=== PATIENT | female | born 1990 | race Caucasian/White ===

== ENCOUNTER 2022-04-24 17:57 | Emergency (ER) | payer OTHER, MEDICAID, SELFPAY ==
[2022-04-24] VITALS (12 sets, daily range): BP systolic 146–169; BP diastolic 87–102; PULSE 73–87; RESP 20–30; TEMP 35.6; O2SAT 97–100; BMI 28.7
[2022-04-24 20:31] LABS: Alanine Aminotransferase 63 IU/L (<35); Albumin 4.6 g/dL (3.5-5.0); Albumin Globulin Ratio 1.2 (1.0-2.8); Alkaline Phosphatase 175 U/L (38-126); Aspartate Aminotransferase 410 IU/L (14-36); BUN Creatinine Ratio 10.5 (6-22); Bilirubin Total 2.8 mg/dL (0.2-1.3); Blood Urea Nitrogen 4 mg/dL (7-17); Calcium 8.7 mg/dL (8.4-10.2); Carbon Dioxide 25 mmol/L (22-32); Chloride 100 mmol/L (98-107); Estimated Glomerular Filt Rate > 60 mL/min (>60); Ethanol (ETOH) < 10 mg/dL; Globulin 3.9 g/dL (1.7-4.1); Glucose 137 mg/dL (70-100); HEMOLYSIS < 15 (0-50); Lipase 206 U/L (23-300); Potassium 3.3 mmol/L (3.4-5.1); Sodium 140 mmol/L (137-145); Total Protein 8.5 g/dL (6.3-8.2)
[2022-04-24 20:33] LABS: Add Manual Diff / Slide Review SLIDE REVIEW; Basophils Absolute Auto 0 /uL (0-100); Basophils Percent Auto 1.1 % (0-2); Eosinophils Absolute Auto 0 /uL (0-450); Eosinophils Percent Auto 0.5 % (2-4); Hematocrit 37.2 % (36-46); Hemoglobin 12.1 g/dL (12.0-16.0); Lymphocytes Absolute Auto 500 /uL (1100-4500); Lymphocytes Percent Auto 17.3 % (25-40); Mean Corpuscular HGB Conc 32.4 % (30-36); Mean Corpuscular Volume 86.2 fL (80-100); Monocytes Absolute Auto 200 /uL (0-900); Monocytes Percent Auto 7.7 % (3-14); Neutrophils Absolute Auto 2200 /uL (1500-7000); Neutrophils Percent Auto 73.4 % (50-75); Platelet Count 40 X10^3/uL (150-400); Red Blood Cell Count 4.31 X10^6/uL (4.0-5.2); Red Cell Distribution Width 16.9 % (11.6-14.8); White Blood Cell Count 2.9 X10^3/uL (4.5-11.0)
[2022-04-24] MEDS: ONDANSETRON 4 MG/2 ML INJ IV (20:43)
[2022-04-24] MEDS: SODIUM CHLORIDE 0.9% 1,000 ML 1000 ML IV (20:43)
[2022-04-24 21:36] LABS: RBC Morphology Normal Morphology
[2022-04-24 21:37] LABS: Platelet Estimate Decreased on smear
--- NOTE | 2022-04-24 23:15 | PC.NURSE ---
patient customer support consultant light concerns of her blood pressure being elevated. MD and primary RN notified of patients concern.
[2022-04-25] VITALS: BP 166/96; PULSE 73; O2SAT 98
--- NOTE | 2022-04-25 00:41 | ED.ALCOHOL ---
HPI - Alcohol <Jewell Hightower DO - Last Filed: 04/25/22 17:59> General Chief Complaint: Toxicology Problem Stated Complaint: severe alcoholic, dt's Time Seen by Provider: 04/24/22 19:35 Source: patient Mode of arrival: Ambulatory History of Present Illness HPI narrative: Patient is a 31-year-old female who presents with alcohol detox. She states she drinks 10 shots every day she has for number of years. She was sober for 51 days this past summer. The last 5 days she developed an illness with fever chills body aches nausea vomiting. She feels like that has actually gotten a little bit better but she really has been able to keep much down however she has been able to keep down some alcohol she has not had an alcoholic drink in the last 24 hours he feels a little shaky. She has not previously have seizures. When she was sober for 51 days she went to a detox center. She denies any cough all chest pain palpitations or sore throat. She feels like her abdomen is a little bit bloated but no significant pain. Related Data Home Medications Medication Instructions Recorded Confirmed No Known Home Medications 11/19/20 11/19/20 Allergies Allergy/AdvReac Type Severity Reaction Status Date / Time aspirin Allergy Verified 04/24/22 18:11 Review of Systems <Jewell Hightower DO - Last Filed: 04/25/22 17:59> Review of Systems Narrative: GENERAL: Denies chills, fatigue, malaise, fever, sweats, travel HEENT: Denies sinus pain, ear pain, sore throat, difficulty swallowing, neck pain RESPIRATORY: Denies dyspnea, cough, wheezing, hemoptysis, sputum. CARDIOVASCULAR: Denies chest pain, palpitations, orthopnea, edema GASTROINTESTINAL: See HPI : Denies dysuria, frequency, incontinence, hematuria, urinary retention, flank pain. MUSCULOSKELETAL: Denies weakness, joint pain, or bony pain SKIN: No rash, no erythema, no pruritus NEUROLOGIC: Denies weakness, dizziness, headache, numbness, change in speech, confusion PSYCHIATRIC: See HPI 12 point review of systems is negative except for those stated above and HPI Patient History <Jewell Hightower DO - Last Filed: 04/25/22 17:59> Social History Smoking Status: Current some day smoker Smoking Status: Current some day smoker alcohol intake frequency: 3 or more drinks per day Alcohol type: hard liquor Substance Use Type: does not use Exam <Jewell Hightower DO - Last Filed: 04/25/22 17:59> Initial Vital Signs Initial Vital Signs: Vital Signs Temperature 96.0 F L 04/24/22 18:06 Pulse Rate 87 04/24/22 18:06 Respiratory Rate 22 04/24/22 18:06 Blood Pressure 148/94 H 04/24/22 18:06 Pulse Oximetry 98 04/24/22 18:06 Oxygen Delivery Method 04/24/22 18:06 GENERAL: Alert sleeping 31-year-old female easily arousable and in no acute distress. HEENT: Head atraumatic,EOMI, pupils reactive, face symmetric, moist mucous membranes CARDIOVASCULAR: Regular rate and rhythm without murmurs, rubs or gallops. RESPIRATORY: Breath sounds equal bilaterally, no wheezes rales or rhonchi. ABDOMEN: Soft, no right upper quadrant pain no guarding no rebound no epigastric EXTREMITIES: Normal range of motion, no clubbing or edema. Neurovascularly intact NEUROLOGICAL: Alert and oriented x4.Normal gait and speech. SKIN: Warm, dry, no laceration, no petechiae, no rashes or lesions. <Abad Jackson MD - Last Filed: 04/25/22 09:09> Initial Vital Signs Initial Vital Signs: Vital Signs Temperature 96.0 F L 04/24/22 18:06 Pulse Rate 87 04/24/22 18:06 Respiratory Rate 22 04/24/22 18:06 Blood Pressure 148/94 H 04/24/22 18:06 Pulse Oximetry 98 04/24/22 18:06 Oxygen Delivery Method 04/24/22 18:06 Course <Jewell Hightower DO - Last Filed: 04/25/22 17:59> Orders Ordered: Discontinued Medications Sodium Chloride (Normal Saline 0.9%) 1,000 mls @ 1,000 mls/hr IV BOLUS ONE Stop: 04/24/22 21:38 Last Infusion: 04/25/22 01:10 Dose: 0 mls/hr Documented By: Admin: 04/24/22 20:43 Dose: 1,000 mls/hr Documented By: GABRIEL Lorazepam (Lorazepam 2 Mg/Ml Inj) 1 mg IV NOW ONE Stop: 04/25/22 04:34 Last Admin: 04/25/22 04:41 Dose: 1 mg Documented By: RON Ondansetron HCl (Ondansetron 4 Mg/2 Ml Inj) 4 mg IV NOW ONE Stop: 04/24/22 20:40 Last Admin: 04/24/22 20:43 Dose: 4 mg Documented By: GABRIEL Phenobarbital (Phenobarbital 65 Mg/Ml Vial) 130 mg IV NOW ONE Stop: 04/25/22 00:56 Last Admin: 04/25/22 01:10 Dose: 130 mg Documented By: RON Vital Signs Vital signs: Vital Signs - 8 hr 04/25/22 03:24 Pulse Rate 76 Respiratory Rate 16 Blood Pressure 128/64 Pulse Oximetry 98 Oxygen Delivery Method Room Air <Abad Jackson MD - Last Filed: 04/25/22 09:09> Course Course Narrative: Care was assumed from Dr. Hightower at change of shift. Patient is a heavy drinker, she is been sober for about 48 hours. She desires sobriety. She is also had recent fever and flu-like symptoms. She currently has no headache, sore throat, cough or chest discomfort. She is no tremor. She is no nausea vomiting. She does have abdominal discomfort. She is experiencing myalgia and fatigue. LFTs were elevated, notably an increased total bili. Ultrasound revealed cholelithiasis, no cholecystitis. Liver MRI was done. Nodular changes to the liver noted. Cholelithiasis noted. There is no abnormality to the CBD, no stones in the CBD. On my exam, she is alert and oriented. Jaundice is not evident. She has no tremor. Abdominal exam reveals no significant tenderness, hepatomegaly is obvious. Further detox was discussed with the patient. Her mother has flown up from [place] to spend time with her. Her mother is here to assist her with sobriety. Admission for detox is declined. She is advised to have close follow-up with her PCM to recheck her liver tests. Melchor WAGONER 04/25/22@09:04. Orders Ordered: Discontinued Medications Sodium Chloride (Normal Saline 0.9%) 1,000 mls @ 1,000 mls/hr IV BOLUS ONE Stop: 04/24/22 21:38 Last Infusion: 04/25/22 01:10 Dose: 0 mls/hr Documented By: Admin: 04/24/22 20:43 Dose: 1,000 mls/hr Documented By: GABRIEL Lorazepam (Lorazepam 2 Mg/Ml Inj) 1 mg IV NOW ONE Stop: 04/25/22 04:34 Last Admin: 04/25/22 04:41 Dose: 1 mg Documented By: RON Ondansetron HCl (Ondansetron 4 Mg/2 Ml Inj) 4 mg IV NOW ONE Stop: 04/24/22 20:40 Last Admin: 04/24/22 20:43 Dose: 4 mg Documented By: GABRIEL Phenobarbital (Phenobarbital 65 Mg/Ml Vial) 130 mg IV NOW ONE Stop: 04/25/22 00:56 Last Admin: 04/25/22 01:10 Dose: 130 mg Documented By: RON Vital Signs Vital signs: Vital Signs - 8 hr 04/25/22 03:24 Pulse Rate 76 Respiratory Rate 16 Blood Pressure 128/64 Pulse Oximetry 98 Oxygen Delivery Method Room Air MDM - Alcohol <Jewell Hightower DO - Last Filed: 04/25/22 17:59> Lab Data Result diagrams: 04/24/22 18:17 04/25/22 03:25 Labs: Lab Results 04/24/22 04/24/22 04/25/22 Range/Units 18:17 18:17 03:25 WBC 2.9 L (4.5-11.0) X10^3/uL RBC 4.31 (4.0-5.2) X10^6/uL Hgb 12.1 (12.0-16.0) g/dL Hct 37.2 (36-46) % MCV 86.2 (80-100) fL MCH 28.0 (26-34) PG MCHC 32.4 (30-36) % RDW 16.9 H (11.6-14.8) % Plt Count 40 L (150-400) X10^3/uL Neut % (Auto) 73.4 (50-75) % Lymph % (Auto) 17.3 L (25-40) % Pitkin % (Auto) 7.7 (3-14) % Eos % (Auto) 0.5 L (2-4) % Baso % (Auto) 1.1 (0-2) % Neut # (Auto) 2200 (5220-3957) /uL Lymph # (Auto) 500 L (5707-9008) /uL Pitkin # (Auto) 200 (0-900) /uL Eos # (Auto) 0 (0-450) /uL Baso # (Auto) 0 (0-100) /uL Platelet Estimate Decreased on smear RBC Morphology Normal morphology Sodium 140 138 (137-145) mmol/L Potassium 3.3 L 3.2 L (3.4-5.1) mmol/L Chloride 100 103 (98-107) mmol/L Carbon Dioxide 25 26 (22-32) mmol/L BUN 4 L 3 L (7-17) mg/dL Creatinine 0.38 L 0.36 L (0.52-1.04) mg/dL Estimated GFR > 60 > 60 (>60) mL/min BUN/Creatinine Ratio 10.5 8.3 (6-22) Glucose 137 H 118 H (70-100) mg/dL Calcium 8.7 7.9 L (8.4-10.2) mg/dL Total Bilirubin 2.8 H 3.3 H (0.2-1.3) mg/dL AST 410 H 306 H (14-36) IU/L ALT 63 H 54 H (<35) IU/L Alkaline Phosphatase 175 H 127 H (38-126) U/L Total Protein 8.5 H 7.4 (6.3-8.2) g/dL Albumin 4.6 4.0 (3.5-5.0) g/dL Globulin 3.9 3.4 (1.7-4.1) g/dL Albumin/Globulin Ratio 1.2 1.2 (1.0-2.8) Lipase 206 (23-300) U/L Ethyl Alcohol < 10 ( - 10) mg/dL Imaging Data US - abdomen: Radiologist's Impressoin: Signed Patient: Kaitlin Chase MR#: [id number] : 1990 Acct:[id number] Age/Sex: 31 / F Date of Service: 04/25/22 Loc: ED Accession Number: [id number] ?? Procedure: US abdomen limited Ordering Provider: Jewell Hightower D.O. PROCEDURE: US ABDOMEN LIMITED ? INDICATIONS:? RUQ PAIN ? TECHNIQUE:? Real-time focused scanning was performed of the abdomen, with image documentation.? ? COMPARISON:? [facility], US, US ABDOMEN COMPLETE, 10/26/2021, 12:58. ? FINDINGS:? ? The liver is enlarged, measuring up to approximately 26 cm.? There is markedly increased hepatic echogenicity with coarse sonographic echotexture consistent with fatty infiltration. ? Multiple mobile gallstones are demonstrated within the gallbladder.? No associated gallbladder wall thickening or pericholecystic fluid. ? No intra or extrahepatic biliary ductal dilatation. ? Pancreas was not well seen due to bowel gas. ? IMPRESSION:? ? 1. Hepatomegaly with increased echogenicity and coarse sonographic echotexture consistent with steatosis. ? 2. Cholelithiasis without evidence of cholecystitis.? Dictated by: Regis Chamorro M.D. on 04/25/2022 at 2:19 ? ? Approved by: Regis Chamorro M.D. on 04/25/2022 at 2:21 ? MDM Narrative Medical decision making narrative: Patient does have history of alcoholism. However her started with nausea vomiting and some diarrhea. She is found have elevated bilirubin at 2.8 and liver enzymes. She does have some very minimal right upper quadrant pain. Ultrasound does show multiple gallstones without cholecystitis. Common bile duct is within normal limits. However repeat blood work shows an increase in bilirubin she really does not have any more pain. Will get MRCP to confirm. She is given a dose of phenobarbital in the emergency department which seems to help but she is wanting more. Patient signed out to Dr. Jackson follow-up MRCP <Abad Jackson MD - Last Filed: 04/25/22 09:09> Lab Data Labs: Lab Results 04/24/22 04/24/22 04/25/22 Range/Units 18:17 18:17 03:25 WBC 2.9 L (4.5-11.0) X10^3/uL RBC 4.31 (4.0-5.2) X10^6/uL Hgb 12.1 (12.0-16.0) g/dL Hct 37.2 (36-46) % MCV 86.2 (80-100) fL MCH 28.0 (26-34) PG MCHC 32.4 (30-36) % RDW 16.9 H (11.6-14.8) % Plt Count 40 L (150-400) X10^3/uL Neut % (Auto) 73.4 (50-75) % Lymph % (Auto) 17.3 L (25-40) % Pitkin % (Auto) 7.7 (3-14) % Eos % (Auto) 0.5 L (2-4) % Baso % (Auto) 1.1 (0-2) % Neut # (Auto) 2200 (3812-3792) /uL Lymph # (Auto) 500 L (4599-3099) /uL Pitkin # (Auto) 200 (0-900) /uL Eos # (Auto) 0 (0-450) /uL Baso # (Auto) 0 (0-100) /uL Platelet Estimate Decreased on smear RBC Morphology Normal morphology Sodium 140 138 (137-145) mmol/L Potassium 3.3 L 3.2 L (3.4-5.1) mmol/L Chloride 100 103 (98-107) mmol/L Carbon Dioxide 25 26 (22-32) mmol/L BUN 4 L 3 L (7-17) mg/dL Creatinine 0.38 L 0.36 L (0.52-1.04) mg/dL Estimated GFR > 60 > 60 (>60) mL/min BUN/Creatinine Ratio 10.5 8.3 (6-22) Glucose 137 H 118 H (70-100) mg/dL Calcium 8.7 7.9 L (8.4-10.2) mg/dL Total Bilirubin 2.8 H 3.3 H (0.2-1.3) mg/dL AST 410 H 306 H (14-36) IU/L ALT 63 H 54 H (<35) IU/L Alkaline Phosphatase 175 H 127 H (38-126) U/L Total Protein 8.5 H 7.4 (6.3-8.2) g/dL Albumin 4.6 4.0 (3.5-5.0) g/dL Globulin 3.9 3.4 (1.7-4.1) g/dL Albumin/Globulin Ratio 1.2 1.2 (1.0-2.8) Lipase 206 (23-300) U/L Ethyl Alcohol < 10 ( - 10) mg/dL Imaging Data Abdomen MRI: Radiologist's Impressoin: In this reported clinical context, imaging findings are suggestive of steatohepatitis with areas of nodular focal fat.? Cholelithiasis was better evaluated on prior ultrasound.? No biliary ductal dilation.? Splenomegaly.? The main portal vein is patent. Discharge Plan Departure Patient Disposition: Home Clinical Impression: Alcoholism, Alcoholic liver disease Instructions: DI for Substance Use Disorder Activity Restrictions/Additional Instructions: I strongly suggest you seek help with alcohol detox and sobriety. You have no dietary restrictions. Your evaluation reveals alcoholic liver damage. You should maintain all efforts to avoid alcohol use. I suggest you follow up your doctor soon as possible to recheck your liver tests. Return to the ER as needed. Prescriptions: No Action No Known Home Medications Referrals: Silvia Kent DNP, PIPE [employer]URE SUPERVISOR [Primary Care Provider] - Visit Report Forms: Patient Portal/API
--- NOTE | 2022-04-25 00:55 | DI.US.S_ITS ---
PROCEDURE: US ABDOMEN LIMITED INDICATIONS: RUQ PAIN TECHNIQUE: Real-time focused scanning was performed of the abdomen, with image documentation. COMPARISON: [facility], US, US ABDOMEN COMPLETE, 10/26/2021, 12:58. FINDINGS: The liver is enlarged, measuring up to approximately 26 cm. There is markedly increased hepatic echogenicity with coarse sonographic echotexture consistent with fatty infiltration. Multiple mobile gallstones are demonstrated within the gallbladder. No associated gallbladder wall thickening or pericholecystic fluid. No intra or extrahepatic biliary ductal dilatation. Pancreas was not well seen due to bowel gas. IMPRESSION: 1. Hepatomegaly with increased echogenicity and coarse sonographic echotexture consistent with steatosis. 2. Cholelithiasis without evidence of cholecystitis. Dictated by: Regis Chamorro M.D. on 04/25/2022 at 2:19 Approved by: Regis Chamorro M.D. on 04/25/2022 at 2:21
[2022-04-25] MEDS: PHENobarbital 65 MG/ML VIAL 130 MG IV (01:10)
[2022-04-25 03:24] VITALS: BP 128/64; PULSE 76; RESP 16; O2SAT 98
[2022-04-25 03:45] LABS: Alanine Aminotransferase 54 IU/L (<35); Albumin Globulin Ratio 1.2 (1.0-2.8); Alkaline Phosphatase 127 U/L (38-126); Aspartate Aminotransferase 306 IU/L (14-36); BUN Creatinine Ratio 8.3 (6-22); Bilirubin Total 3.3 mg/dL (0.2-1.3); Blood Urea Nitrogen 3 mg/dL (7-17); Calcium 7.9 mg/dL (8.4-10.2); Carbon Dioxide 26 mmol/L (22-32); Chloride 103 mmol/L (98-107); Estimated Glomerular Filt Rate > 60 mL/min (>60); Globulin 3.4 g/dL (1.7-4.1); Glucose 118 mg/dL (70-100); HEMOLYSIS 25 (0-50); Potassium 3.2 mmol/L (3.4-5.1); Sodium 138 mmol/L (137-145); Total Protein 7.4 g/dL (6.3-8.2)
--- NOTE | 2022-04-25 04:33 | DI.MRI.S_ITS ---
PROCEDURE: MR ABDOMEN WO/W CON INDICATIONS: elevated bili and cholelithiasis and alcohol TECHNIQUE: Coronal HASTE, axial 2D FLASH in- and [id number]; axial breath-hold T2 FSE. Dynamic axial VIBE during the administration of contrast; post-contrast coronal VIBE or 2D FLASH with fat saturation from the hepatic dome to the iliac crests. Optional diffusion weighted imaging and ADC may be performed. COMPARISON: [facility], , US ABDOMEN LIMITED, 04/25/2022, 1:18. FINDINGS: Image quality: Motion degraded Lung bases: No basal effusions. Lungs are not well evaluated on MRI. Solid organs: Hepatic steatosis. Hepatomegaly. There is suspected more focal fat adjacent gallbladder fossa. There are also small nodular areas of suspected focal fat. Cholelithiasis was better evaluated with ultrasound. No choledocholithiasis identified. No pancreatic ductal dilation. The pancreas is within normal limits. Splenomegaly at about 15 centimeters. No adrenal nodules. No hydronephrosis. Nodes and vessels: No abdominal aortic aneurysm. Prominent upper abdominal lymph nodes may be reactive in this clinical context. The main portal vein is patent. Bowel and peritoneum: No bowel obstruction. No pathologic ascites. Bones and soft tissues: No suspicious osseous lesion. No soft tissue abscess or hematoma identified. IMPRESSION: In this reported clinical context, imaging findings are suggestive of steatohepatitis with areas of nodular focal fat. Cholelithiasis was better evaluated on prior ultrasound. No biliary ductal dilation. Splenomegaly. The main portal vein is patent. This MRI is motion degraded. Dictated by: aDmir Phillips M.D. on 04/25/2022 at 8:24 Approved by: Damir Phillips M.D. on 04/25/2022 at 8:31
[2022-04-25] MEDS: LORazepam 2 MG/ML INJ 1 MG IV (04:41)
== END 2022-04-25 09:22 | disposition home or self-care (01) ==
PROVIDERS: Emergency Provider Emergency Medicine; PCP Nurse Practitioner Family
DX: K70.9 Alcoholic liver disease, unspecified (principal); F10.20 Alcohol dependence, uncomplicated; R10.11 Right upper quadrant pain; R11.2 Nausea with vomiting, unspecified
CPT/HCPCS: 36415; 74183; 76705; 80053; 80320; 83690; 85025; 96361; 96374; 96375; 99284; J2060; J2405; J2560

== ENCOUNTER 2022-06-08 16:41 | Inpatient (IN) | payer OTHER, MEDICAID, SELFPAY ==
[2022-06-08 16:58] VITALS: BP 132/94; PULSE 88; RESP 20; TEMP 36.3; O2SAT 96; BMI 27.2
--- NOTE | 2022-06-08 17:27 | ED_ITS ---
HPI - Alcohol <Bola Harry DO - Last Filed: 06/09/22 12:28> General Chief Complaint: Toxicology Problem Stated Complaint: Liver enzymes really high Time Seen by Provider: 06/08/22 16:47 Source: patient Mode of arrival: Ambulatory History of Present Illness HPI narrative: 31-year-old female smoker and daily drinker presents at the request of her primary care provider due to about 2 weeks of nausea, vomiting and poor appetite but also symptoms consistent with alcohol withdrawal. She drinks upwards of a bottle of vodka per day and had her last drink last night. She had seen her primary care provider today to discuss options moving forward and was prescribed a Librium taper but also had labs drawn. The labs came back and found slight elevations in her LFTs but also bilirubin of 3. She was instructed to present to us for evaluation. Over the course of the day she has developed some mild headache agitation and racing heart. She is gone through alcohol withdrawal before but has never had seizures. She denies any hematemesis or dark and tarry stools. She denies abdominal pain. Related Data Home Medications Medication Instructions Recorded Confirmed No Known Home Medications 11/19/20 11/19/20 Allergies Allergy/AdvReac Type Severity Reaction Status Date / Time aspirin Allergy Verified 06/08/22 16:58 Review of Systems <Bola Harry DO - Last Filed: 06/09/22 12:28> Review of Systems Narrative: GENERAL: See HPI HEENT: Denies sinus pain, ear pain, sore throat, difficulty swallowing, dizziness. RESPIRATORY: Denies dyspnea, cough, wheezing, hemoptysis, sputum. CARDIOVASCULAR: Denies chest pain, palpitations, orthopnea, edema, GASTROINTESTINAL: See HPI : Denies dysuria, frequency, incontinence, hematuria, urinary retention. MUSCULOSKELETAL: denies weakness, joint pain, or bony pain SKIN: Denies rash, skin lesions, or other NEUROLOGIC: See HPI PSYCHIATRIC: No concerning psychosocial issues. 12 point review of systems is negative except for those stated above Patient History <Bola Harry DO - Last Filed: 06/09/22 12:28> Medical History (Updated 06/09/22 @ 01:56 by Brooklyn Lopez DO) Alcohol abuse Thrombocythemia Surgical History (Updated 06/08/22 @ 22:07 by RICHARD Meza) No history of previous surgery Family History (Updated 06/08/22 @ 22:08 by RICHARD Meza) Father Depression Mother No pertinent past medical history Social History household members: friend(s) Smoking Status: Current some day smoker alcohol intake: current Smoking Status: Current some day smoker alcohol intake frequency: 3 or more drinks per day Alcohol type: hard liquor Substance Use Type: does not use Exam <Bola Harry DO - Last Filed: 06/09/22 12:28> Narrative Exam Narrative: GENERAL: [31] year old patient appears stated age. Well-developed patient, in obviously ill, bit anxious and agitated, tremulous at rest HEAD: Atraumatic. Normocephalic. EYES: Pupils equal round and reactive. Extraocular motions intact. No scleral icterus. No injection or drainage. ENT: Nose without bleeding, purulent drainage. Throat without erythema, tonsillar hypertrophy or exudate. Airway patent. NECK: Trachea midline. Non tender CARDIOVASCULAR: Tachycardic but regular rhythm without murmurs, gallops, or rubs. RESPIRATORY: Clear to auscultation. Breath sounds equal bilaterally. No wheezes, rales, or rhonchi. GASTROINTESTINAL: Abdomen soft, non-tender, nondistended. EXTREMITIES: No edema or joint tenderness. BACK: Nontender without deformity or crepitance. No flank tenderness. NEURO: AOx3. Some pressured speech, tremulous with arms extended SKIN: No rash or erythema of visible areas Initial Vital Signs Initial Vital Signs: Vital Signs Temperature 97.3 F L 06/08/22 16:58 Pulse Rate 88 06/08/22 16:58 Respiratory Rate 20 06/08/22 16:58 Blood Pressure 132/94 H 06/08/22 16:58 Pulse Oximetry 96 06/08/22 16:58 Oxygen Delivery Method 06/08/22 16:58 <Brooklyn Lopez DO - Last Filed: 06/09/22 02:34> Initial Vital Signs Initial Vital Signs: Vital Signs Temperature 97.3 F L 06/08/22 16:58 Pulse Rate 88 06/08/22 16:58 Respiratory Rate 20 06/08/22 16:58 Blood Pressure 132/94 H 06/08/22 16:58 Pulse Oximetry 96 06/08/22 16:58 Oxygen Delivery Method 06/08/22 16:58 Course <Bola Harry, DO - Last Filed: 06/09/22 12:28> Course Course Narrative: CIWA calculated by nursing, initial score 17 Orders Ordered: Chlordiazepoxide HCl (Chlordiazepoxide 25 Mg Capsule) 25 mg PO TID [facility] Last Admin: 06/09/22 08:49 Dose: 25 mg Documented By: SHAGGY Folic Acid (Folic Acid 1 Mg Tablet) 1 mg PO DAILY [facility] Last Admin: 06/09/22 08:48 Dose: 1 mg Documented By: SHAGGY Sodium Chloride (Normal Saline 0.9%) 1,000 mls @ 100 mls/hr IV CONT [facility] Last Admin: 06/09/22 00:02 Dose: Not Given Documented By: RON Lorazepam (Lorazepam 2 Mg/Ml Inj) 0 mg IV CIWAPRN PRN; Protocol PRN Reason: Alcohol Withdrawal Last Admin: 06/09/22 02:57 Dose: 2 mg Documented By: MARY KATE Admin: 06/09/22 01:14 Dose: 2 mg Documented By: MARY KATE Admin: 06/08/22 21:56 Dose: 2 mg Documented By: RON Magnesium Chloride (Magnesium Chloride 64 Mg Tablet) 128 mg PO Q8H [facility] Stop: 06/09/22 15:46 Last Admin: 06/09/22 08:44 Dose: 128 mg Documented By: SHAGGY Multivitamins (Multivitamin 1 Tablet) 1 tab PO DAILY [facility] Last Admin: 06/09/22 08:48 Dose: 1 tab Documented By: SHAGGY Naloxone HCl (Naloxone 0.4 Mg/Ml Vial) 0.2 mg IV Q2MIN PRN PRN Reason: Opiate Reversal Nicotine (Nicotine 7 Mg Patch) 7 mg TOP DAILY [facility] Last Admin: 06/09/22 08:57 Dose: Not Given Documented By: SHAGGY Ondansetron HCl (Ondansetron 4 Mg/2 Ml Inj) 4 mg IV Q6HR PRN PRN Reason: Nausea And Vomiting Potassium Chloride (Potassium Chloride 20 Meq Tab) 40 meq PO Q6H [facility] Stop: 06/09/22 13:46 Last Admin: 06/09/22 08:44 Dose: 40 meq Documented By: SHAGGY Thiamine HCl (Thiamine 100 Mg Tablet) 100 mg PO DAILY [facility] Stop: 06/12/22 09:01 Last Admin: 06/09/22 08:48 Dose: 100 mg Documented By: SHAGGY Discontinued Medications Chlordiazepoxide HCl (Chlordiazepoxide 25 Mg Capsule) 25 mg PO TID [facility] Last Admin: 06/08/22 21:45 Dose: 25 mg Documented By: RON Sodium Chloride (Normal Saline 0.9%) 1,000 mls @ 100 mls/hr IV CONT [facility] Last Infusion: 06/09/22 07:07 Dose: 0 mls/hr Documented By: Admin: 06/08/22 21:43 Dose: 100 mls/hr Documented By: RON Magnesium Sulfate (Magnesium Sulfate) 2 gm in 50 mls @ 25 mls/hr IV NOW ONE Stop: 06/09/22 10:15 Last Admin: 06/09/22 08:49 Dose: 25 mls/hr Documented By: SHAGGY Co-signed By: WILLIAM Ondansetron HCl (Ondansetron 4 Mg/2 Ml Inj) 4 mg IV NOW PRN PRN Reason: Nausea And Vomiting Last Admin: 06/08/22 17:54 Dose: 4 mg Documented By: YING Phenobarbital (Phenobarbital 65 Mg/Ml Vial) 260 mg IV NOW ONE Stop: 06/08/22 17:23 Last Admin: 06/08/22 17:54 Dose: 260 mg Documented By: YING Phenobarbital (Phenobarbital 65 Mg/Ml Vial) 130 mg IV NOW ONE Stop: 06/08/22 19:50 Last Admin: 06/08/22 19:52 Dose: 130 mg Documented By: RON Vital Signs Vital signs: Vital Signs - 8 hr 06/08/22 16:58 Temperature 97.3 F L Pulse Rate 88 Respiratory Rate 20 Blood Pressure 132/94 H Pulse Oximetry 96 Oxygen Delivery Method Room Air <Brooklyn Lopez, - Last Filed: 06/09/22 02:34> Orders Ordered: Chlordiazepoxide HCl (Chlordiazepoxide 25 Mg Capsule) 25 mg PO TID [facility] Last Admin: 06/09/22 08:49 Dose: 25 mg Documented By: SHAGGY Folic Acid (Folic Acid 1 Mg Tablet) 1 mg PO DAILY [facility] Last Admin: 06/09/22 08:48 Dose: 1 mg Documented By: SHAGGY Sodium Chloride (Normal Saline 0.9%) 1,000 mls @ 100 mls/hr IV CONT [facility] Last Admin: 06/09/22 00:02 Dose: Not Given Documented By: RON Lorazepam (Lorazepam 2 Mg/Ml Inj) 0 mg IV CIWAPRN PRN; Protocol PRN Reason: Alcohol Withdrawal Last Admin: 06/09/22 02:57 Dose: 2 mg Documented By: MARY KATE Admin: 06/09/22 01:14 Dose: 2 mg Documented By: MARY KATE Admin: 06/08/22 21:56 Dose: 2 mg Documented By: RON Magnesium Chloride (Magnesium Chloride 64 Mg Tablet) 128 mg PO Q8H [facility] Stop: 06/09/22 15:46 Last Admin: 06/09/22 08:44 Dose: 128 mg Documented By: SHAGYG Multivitamins (Multivitamin 1 Tablet) 1 tab PO DAILY [facility] Last Admin: 06/09/22 08:48 Dose: 1 tab Documented By: SHAGGY Naloxone HCl (Naloxone 0.4 Mg/Ml Vial) 0.2 mg IV Q2MIN PRN PRN Reason: Opiate Reversal Nicotine (Nicotine 7 Mg Patch) 7 mg TOP DAILY [facility] Last Admin: 06/09/22 08:57 Dose: Not Given Documented By: SAHGGY Ondansetron HCl (Ondansetron 4 Mg/2 Ml Inj) 4 mg IV Q6HR PRN PRN Reason: Nausea And Vomiting Potassium Chloride (Potassium Chloride 20 Meq Tab) 40 meq PO Q6H [facility] Stop: 06/09/22 13:46 Last Admin: 06/09/22 08:44 Dose: 40 meq Documented By: SHAGGY Thiamine HCl (Thiamine 100 Mg Tablet) 100 mg PO DAILY [facility] Stop: 06/12/22 09:01 Last Admin: 06/09/22 08:48 Dose: 100 mg Documented By: SHAGGY Discontinued Medications Chlordiazepoxide HCl (Chlordiazepoxide 25 Mg Capsule) 25 mg PO TID [facility] Last Admin: 06/08/22 21:45 Dose: 25 mg Documented By: RON Sodium Chloride (Normal Saline 0.9%) 1,000 mls @ 100 mls/hr IV CONT [facility] Last Infusion: 06/09/22 07:07 Dose: 0 mls/hr Documented By: MARY KATE Admin: 06/08/22 21:43 Dose: 100 mls/hr Documented By: RON Magnesium Sulfate (Magnesium Sulfate) 2 gm in 50 mls @ 25 mls/hr IV NOW ONE Stop: 06/09/22 10:15 Last Admin: 06/09/22 08:49 Dose: 25 mls/hr Documented By: SHAGGY Co-signed By: WILLIAM Ondansetron HCl (Ondansetron 4 Mg/2 Ml Inj) 4 mg IV NOW PRN PRN Reason: Nausea And Vomiting Last Admin: 06/08/22 17:54 Dose: 4 mg Documented By: YING Phenobarbital (Phenobarbital 65 Mg/Ml Vial) 260 mg IV NOW ONE Stop: 06/08/22 17:23 Last Admin: 06/08/22 17:54 Dose: 260 mg Documented By: YING Phenobarbital (Phenobarbital 65 Mg/Ml Vial) 130 mg IV NOW ONE Stop: 06/08/22 19:50 Last Admin: 06/08/22 19:52 Dose: 130 mg Documented By: RON Vital Signs Vital signs: Vital Signs - 8 hr 06/08/22 16:58 Temperature 97.3 F L Pulse Rate 88 Respiratory Rate 20 Blood Pressure 132/94 H Pulse Oximetry 96 Oxygen Delivery Method Room Air MDM - Alcohol <Bola Harry, DO - Last Filed: 06/09/22 12:28> Lab Data Result diagrams: 06/09/22 04:28 06/09/22 04:28 Labs: Lab Results 06/08/22 06/08/22 06/08/22 Range/Units 17:16 17:16 17:16 WBC 1.6 L* (4.5-11.0) X10^3/uL RBC 4.24 (4.0-5.2) X10^6/uL Hgb 12.2 (12.0-16.0) g/dL Hct 36.5 (36-46) % MCV 86.2 (80-100) fL MCH 28.7 (26-34) PG MCHC 33.3 (30-36) % RDW 17.1 H (11.6-14.8) % Plt Count 25 L* (150-400) X10^3/uL Neut % (Auto) Not Reportable Lymph % (Auto) Not Reportable [place] % (Auto) Not Reportable Eos % (Auto) Not Reportable Baso % (Auto) Not Reportable Lymph # (Auto) Not Reportable [place] # (Auto) Not Reportable Baso # (Auto) Not Reportable Total Counted 50 Seg Neutrophils % 74.0 H (38-70) % Lymphocytes % (Manual) 26.0 (25-45) % Neutrophils # (Manual) 1184 L (4515-8413) /uL Platelet Estimate Decreased on smear RBC Morphology Normal morphology PT 16.3 H (10.1-12.7) SECONDS INR 1.4 H (0.9-1.3) Sodium 137 (137-145) mmol/L Potassium 3.4 (3.4-5.1) mmol/L Chloride 98 (98-107) mmol/L Carbon Dioxide 25 (22-32) mmol/L BUN 7 (7-17) mg/dL Creatinine 0.38 L (0.52-1.04) mg/dL Estimated GFR > 60 (>60) mL/min BUN/Creatinine Ratio 18.4 (6-22) Glucose 121 H (70-100) mg/dL Calcium 8.3 L (8.4-10.2) mg/dL Total Bilirubin 4.5 H (0.2-1.3) mg/dL Conjugated Bilirubin (0.0-0.3) md/dL Unconjugated Bilirubin (0.0-1.1) mg/dL AST 393 H (14-36) IU/L ALT 142 H (<35) IU/L Alkaline Phosphatase 209 H (38-126) U/L Ammonia (9-30) umol/L Total Protein 7.7 (6.3-8.2) g/dL Albumin 4.0 (3.5-5.0) g/dL Globulin 3.7 (1.7-4.1) g/dL Albumin/Globulin Ratio 1.1 (1.0-2.8) Lipase 218 (23-300) U/L SARS-CoV-2 (PCR) (Negative) 06/08/22 06/08/22 06/08/22 Range/Units 17:16 17:16 17:16 WBC (4.5-11.0) X10^3/uL RBC (4.0-5.2) X10^6/uL Hgb (12.0-16.0) g/dL Hct (36-46) % MCV (80-100) fL MCH (26-34) PG MCHC (30-36) % RDW (11.6-14.8) % Plt Count (150-400) X10^3/uL Neut % (Auto) Lymph % (Auto) [place]field % (Auto) Eos % (Auto) Baso % (Auto) Lymph # (Auto) [place]field # (Auto) Baso # (Auto) Total Counted Seg Neutrophils % (38-70) % Lymphocytes % (Manual) (25-45) % Neutrophils # (Manual) (7057-2628) /uL Platelet Estimate RBC Morphology PT (10.1-12.7) SECONDS INR (0.9-1.3) Sodium (137-145) mmol/L Potassium (3.4-5.1) mmol/L Chloride (98-107) mmol/L Carbon Dioxide (22-32) mmol/L BUN (7-17) mg/dL Creatinine (0.52-1.04) mg/dL Estimated GFR (>60) mL/min BUN/Creatinine Ratio (6-22) Glucose (70-100) mg/dL Calcium (8.4-10.2) mg/dL Total Bilirubin 4.6 H (0.2-1.3) mg/dL Conjugated Bilirubin 0.3 (0.0-0.3) md/dL Unconjugated Bilirubin 3.1 H (0.0-1.1) mg/dL AST 409 H (14-36) IU/L ALT 140 H (<35) IU/L Alkaline Phosphatase 209 H (38-126) U/L Ammonia 14 (9-30) umol/L Total Protein 7.4 (6.3-8.2) g/dL Albumin 4.1 (3.5-5.0) g/dL Globulin 3.3 (1.7-4.1) g/dL Albumin/Globulin Ratio 1.2 (1.0-2.8) Lipase (23-300) U/L SARS-CoV-2 (PCR) Negative (Negative) <Brooklyn Lopez, DO - Last Filed: 06/09/22 02:34> Lab Data Labs: Lab Results 06/08/22 06/08/22 06/08/22 Range/Units 17:16 17:16 17:16 WBC 1.6 L* (4.5-11.0) X10^3/uL RBC 4.24 (4.0-5.2) X10^6/uL Hgb 12.2 (12.0-16.0) g/dL Hct 36.5 (36-46) % MCV 86.2 (80-100) fL MCH 28.7 (26-34) PG MCHC 33.3 (30-36) % RDW 17.1 H (11.6-14.8) % Plt Count 25 L* (150-400) X10^3/uL Neut % (Auto) Not Reportable Lymph % (Auto) Not Reportable [place]field % (Auto) Not Reportable Eos % (Auto) Not Reportable Baso % (Auto) Not Reportable Lymph # (Auto) Not Reportable [place] # (Auto) Not Reportable Baso # (Auto) Not Reportable Total Counted 50 Seg Neutrophils % 74.0 H (38-70) % Lymphocytes % (Manual) 26.0 (25-45) % Neutrophils # (Manual) 1184 L (0998-5144) /uL Platelet Estimate Decreased on smear RBC Morphology Normal morphology PT 16.3 H (10.1-12.7) SECONDS INR 1.4 H (0.9-1.3) Sodium 137 (137-145) mmol/L Potassium 3.4 (3.4-5.1) mmol/L Chloride 98 (98-107) mmol/L Carbon Dioxide 25 (22-32) mmol/L BUN 7 (7-17) mg/dL Creatinine 0.38 L (0.52-1.04) mg/dL Estimated GFR > 60 (>60) mL/min BUN/Creatinine Ratio 18.4 (6-22) Glucose 121 H (70-100) mg/dL Calcium 8.3 L (8.4-10.2) mg/dL Total Bilirubin 4.5 H (0.2-1.3) mg/dL Conjugated Bilirubin (0.0-0.3) md/dL Unconjugated Bilirubin (0.0-1.1) mg/dL AST 393 H (14-36) IU/L ALT 142 H (<35) IU/L Alkaline Phosphatase 209 H (38-126) U/L Ammonia (9-30) umol/L Total Protein 7.7 (6.3-8.2) g/dL Albumin 4.0 (3.5-5.0) g/dL Globulin 3.7 (1.7-4.1) g/dL Albumin/Globulin Ratio 1.1 (1.0-2.8) Lipase 218 (23-300) U/L SARS-CoV-2 (PCR) (Negative) 06/08/22 06/08/22 06/08/22 Range/Units 17:16 17:16 17:16 WBC (4.5-11.0) X10^3/uL RBC (4.0-5.2) X10^6/uL Hgb (12.0-16.0) g/dL Hct (36-46) % MCV (80-100) fL MCH (26-34) PG MCHC (30-36) % RDW (11.6-14.8) % Plt Count (150-400) X10^3/uL Neut % (Auto) Lymph % (Auto) [place] % (Auto) Eos % (Auto) Baso % (Auto) Lymph # (Auto) [place] # (Auto) Baso # (Auto) Total Counted Seg Neutrophils % (38-70) % Lymphocytes % (Manual) (25-45) % Neutrophils # (Manual) (1490-2590) /uL Platelet Estimate RBC Morphology PT (10.1-12.7) SECONDS INR (0.9-1.3) Sodium (137-145) mmol/L Potassium (3.4-5.1) mmol/L Chloride (98-107) mmol/L Carbon Dioxide (22-32) mmol/L BUN (7-17) mg/dL Creatinine (0.52-1.04) mg/dL Estimated GFR (>60) mL/min BUN/Creatinine Ratio (6-22) Glucose (70-100) mg/dL Calcium (8.4-10.2) mg/dL Total Bilirubin 4.6 H (0.2-1.3) mg/dL Conjugated Bilirubin 0.3 (0.0-0.3) md/dL Unconjugated Bilirubin 3.1 H (0.0-1.1) mg/dL AST 409 H (14-36) IU/L ALT 140 H (<35) IU/L Alkaline Phosphatase 209 H (38-126) U/L Ammonia 14 (9-30) umol/L Total Protein 7.4 (6.3-8.2) g/dL Albumin 4.1 (3.5-5.0) g/dL Globulin 3.3 (1.7-4.1) g/dL Albumin/Globulin Ratio 1.2 (1.0-2.8) Lipase (23-300) U/L SARS-CoV-2 (PCR) Negative (Negative) Discharge Plan Departure Patient Disposition: Admitted As Inpatient Clinical Impression: Alcohol abuse, Thrombocytosis, Hepatitis, Leukopenia Admit Date/Time: 06/08/22 20:14 Admit Provider: Daria Duenas <Brooklyn Lopez, - Last Filed: 06/09/22 02:34> Sign Out Provider Sign Out Attestation: John 06/08/22: Patient was dispositioned by Dr. Harry and I did not see the patient while in the emergency department.
--- NOTE | 2022-06-08 17:30 | DI.US.S_ITS ---
PROCEDURE: US ABDOMEN LIMITED INDICATIONS: elevated LFTs TECHNIQUE: Real-time scanning was performed of the abdominal and retroperitoneal organs, with image documentation. COMPARISON: [facility], , US ABDOMEN LIMITED, 04/25/2022, 1:18. FINDINGS: Liver: Liver is markedly enlarged and show diffusely increased liver parenchymal echotexture. No discrete hepatic lesion is seen. Gallbladder: Multiple stones are seen in dependent portion of gallbladder lumen measures up to 6 mm in size. There is no gallbladder wall thickening or pericholecystic fluid. No sonographic Delgado sign. Biliary ducts: Intrahepatic bile ducts are non-dilated. Extrahepatic bile duct caliber measures 6.4 mm. Normal is 6-7 mm or less in diameter, or 10 mm or less post-cholecystectomy. Pancreas: Visualized portions of the pancreas are sonographically normal. IMPRESSION: 1. Marked hepatomegaly with severe hepatic steatosis, no discrete hepatic lesion is seen. 2. Cholelithiasis without sonographic evidence of acute cholecystitis. No biliary ductal dilatation. Dictated by: Zenon Mora M.D. on 06/08/2022 at 19:48 Approved by: Zenon Mora M.D. on 06/08/2022 at 19:49
[2022-06-08 17:47] LABS: INR 1.4 (0.9-1.3); Prothrombin Time 16.3 SECONDS (10.1-12.7)
[2022-06-08 17:49] LABS: Hematocrit 36.5 % (36-46); Hemoglobin 12.2 g/dL (12.0-16.0); Mean Corpuscular HGB Conc 33.3 % (30-36); Mean Corpuscular Hemoglobin 28.7 PG (26-34); Mean Corpuscular Volume 86.2 fL (80-100); Red Blood Cell Count 4.24 X10^6/uL (4.0-5.2); Red Cell Distribution Width 17.1 % (11.6-14.8)
[2022-06-08 17:51] LABS: Add Manual Diff / Slide Review YES; Ammonia (NH3) 14 umol/L (9-30); Platelet Count 25 X10^3/uL (150-400); White Blood Cell Count 1.6 X10^3/uL (4.5-11.0)
[2022-06-08 17:52] LABS: Alanine Aminotransferase 142 IU/L (<35); Albumin Globulin Ratio 1.1 (1.0-2.8); Alkaline Phosphatase 209 U/L (38-126); Aspartate Aminotransferase 393 IU/L (14-36); BUN Creatinine Ratio 18.4 (6-22); Bilirubin Total 4.5 mg/dL (0.2-1.3); Blood Urea Nitrogen 7 mg/dL (7-17); Calcium 8.3 mg/dL (8.4-10.2); Carbon Dioxide 25 mmol/L (22-32); Chloride 98 mmol/L (98-107); Estimated Glomerular Filt Rate > 60 mL/min (>60); Globulin 3.7 g/dL (1.7-4.1); Glucose 121 mg/dL (70-100); HEMOLYSIS < 15 (0-50); Lipase 218 U/L (23-300); Potassium 3.4 mmol/L (3.4-5.1); Sodium 137 mmol/L (137-145); Total Protein 7.7 g/dL (6.3-8.2)
[2022-06-08 17:54] LABS: COVID19 -Nasal RAPID Negative (Negative)
[2022-06-08] MEDS: PHENobarbital 65 MG/ML VIAL 260 MG IV (17:54)
[2022-06-08] MEDS: ONDANSETRON 4 MG/2 ML INJ IV (17:54)
[2022-06-08 18:08] LABS: Neutrophils Absolute Manual 1184 /uL (3000-5900); Total Cells Counted 50
[2022-06-08 18:09] LABS: Platelet Estimate Decreased on smear; RBC Morphology Normal Morphology
[2022-06-08] MEDS: PHENobarbital 65 MG/ML VIAL 130 MG IV (19:52)
[2022-06-08 20:32] VITALS: BP 136/77; PULSE 83; RESP 16; O2SAT 98
--- NOTE | 2022-06-08 20:32 | PC.NURSE ---
Patient reports headache has completely resolved. She denies any nausea or vomiting. Appears more comfortable.
--- NOTE | 2022-06-08 20:39 | P.HP_ITS ---
History of Present Illness History of Present Illness Date Patient Seen: 06/08/22 Time Patient Seen: 20:39 Chief complaint: Liver enzymes really high Narrative: Kaitlin Chase is a pleasant 31 y.o. female who was seeing her PCP at [facility] for a prescription for librium for alcohol withdrawal. She endorses having the shakes nauseous, sweats, but states her tremors are improving. Told the ED provider she had a mild headache, agitation and palpitations. Denies having had seizures or pancreatitis. Has undergone inpatient detox in the [facility] area where she stayed for 5 days. States she drinks a bottle of vodka/daily and is tapering down on tobacco use to a couple of cigarettes/day. States she takes Lexapro 20 mg for depression and pantoprazole for GERD. Earlier today, she presented to her PCP who primo labs, instructed her to present to [facility] ED for further treatment due to very high liver enzymes and bilirubin. Ultrasound of the abdomen did note marked hepatomegaly with severe hepatic steatosis and cholelithiasis without evidence of acute cholelithiasis. She is afebrile, blood pressure 136/77 heart rate 83, respiratory rate 16, oxygen saturation 90% on room air she weighs 86.1 kg with a BMI of 27. WBC is extremely low at 1.6 platelet count 25 INR is 1.4 with a PT of 16.3 glucose 121 calcium 8.3 T bili 4.6 AST 409 ALT 140 alk-phos 209 Patient History Medical History (Updated 06/08/22 @ 20:25 by RICHARD Meza) Alcohol abuse Thrombocythemia Surgical History (Updated 06/08/22 @ 22:07 by RICHARD Meza) No history of previous surgery Family & Social History Family History (Updated 06/08/22 @ 22:08 by RICHARD Meza) Father Depression Mother No pertinent past medical history Safety & Behavioral: Feels Safe in Current Yes Environment Suicidal Ideation Description None Suicide Plan Description No Plan Tobacco & Substance use: Smoking Status Current some day smoker alcohol intake frequency 3 or more drinks per day Substance Use Type does not use Meds Home Medications and Allergies Home Medications Medication Instructions Recorded Confirmed Type No Known Home Medications 11/19/20 11/19/20 History Allergies Allergy/AdvReac Type Severity Reaction Status Date / Time aspirin Allergy Verified 06/08/22 16:58 Review of Systems Review of Systems ROS: Yes All systems reviewed with the patient and are negative except as otherwise documented Exam Vital Signs (past 8 hours): - 06/08/22 16:58 06/08/22 20:32 Temperature 97.3 F L Pulse Rate 88 83 Respiratory Rate 20 16 Blood Pressure 132/94 H 136/77 Pulse Oximetry 96 98 Oxygen Delivery Method Room Air Oxygen Delivery Method Room Air Narrative Exam Narrative: Gen: Alert, oriented, well-developed 31 y.o. female, NAD HEENT: normocephalic, atraumatic, conjunctiva clear, sclera non-icteric, oral mucosa pink and moist Neck: supple, full ROM, no JVD, trachea is midline Resp: Lungs CTA, non-labored breathing CV: RRR, no murmur or rubs Abd: obese, soft, non-tender, normoactive BTs Skin: no lesions or rashes, dry and intact Neuro: Alert and oriented X 4 w/no focal deficits. Speech clear and coherent. Extremities: moves all 4 extremities, is ambulatory, negative Bernice?s sign Psyche: normal mood and affect. Objective Labs Result Diagrams: 06/08/22 17:16 06/08/22 17:16 Labs: Laboratory Results - last 24 hr 06/08/22 06/08/22 06/08/22 17:16 17:16 17:16 WBC 1.6 L* RBC 4.24 Hgb 12.2 Hct 36.5 MCV 86.2 MCH 28.7 MCHC 33.3 RDW 17.1 H Plt Count 25 L* Neut % (Auto) Not Reportable Lymph % (Auto) Not Reportable [place] % (Auto) Not Reportable Eos % (Auto) Not Reportable Baso % (Auto) Not Reportable Lymph # (Auto) Not Reportable [place] # (Auto) Not Reportable Baso # (Auto) Not Reportable Total Counted 50 Seg Neutrophils % 74.0 H Lymphocytes % (Manual) 26.0 Neutrophils # (Manual) 1184 L Platelet Estimate Decreased on smear RBC Morphology Normal morphology PT 16.3 H INR 1.4 H Sodium 137 Potassium 3.4 Chloride 98 Carbon Dioxide 25 BUN 7 Creatinine 0.38 L Estimated GFR > 60 BUN/Creatinine Ratio 18.4 Glucose 121 H Calcium 8.3 L Total Bilirubin 4.5 H AST 393 H ALT 142 H Alkaline Phosphatase 209 H Ammonia Total Protein 7.7 Albumin 4.0 Globulin 3.7 Albumin/Globulin Ratio 1.1 Lipase 218 SARS-CoV-2 (PCR) 06/08/22 06/08/22 17:16 17:16 WBC RBC Hgb Hct MCV MCH MCHC RDW Plt Count Neut % (Auto) Lymph % (Auto) [place] % (Auto) Eos % (Auto) Baso % (Auto) Lymph # (Auto) [place] # (Auto) Baso # (Auto) Total Counted Seg Neutrophils % Lymphocytes % (Manual) Neutrophils # (Manual) Platelet Estimate RBC Morphology PT INR Sodium Potassium Chloride Carbon Dioxide BUN Creatinine Estimated GFR BUN/Creatinine Ratio Glucose Calcium Total Bilirubin AST ALT Alkaline Phosphatase Ammonia 14 Total Protein Albumin Globulin Albumin/Globulin Ratio Lipase SARS-CoV-2 (PCR) Negative Assessment & Plan Assessment & Plan narrative: Kaitlin Chase is admitted for acute alcohol withdrawal. Acute alcohol withdrawal, present on admission * She was administered a loading dose of IV phenobarbatol 260 mg followed by 130 mg IV 2 hours later * She took one dose of librium 50 mg earlier today, she is written for 25 mg po tid starting tonight * Ativan per [facility] protocol * Seizure precautions * Multi-vitami, Folic acid and oral thiamine daily * consult for outpatient follow-up Suspected alcoholic hepatitis * Continue daily monitoring of liver enzymes * Acute hepatitis panel sent * She is likely going to need outpatient GI/duco polisher followup Thrombocytopenia, unknown if chronic * Pharmacological VTE prophylaxis contraindicated in the setting of severe thrombocytopenia (platlet count of 25) VTE Prophylaxis: Wells risk score 0 X Bilateral SCDs. Pharmacological VTE prophylaxis contraindicated in the setting of severe thrombocytopenia (platelet count of 25) Patient is admitted to the inpatient service due to the severity of disease, risks of further disease progression and this stay is expected to exceed 2 midnights. FEN: IV fluids: NS at 100 ml/hour, diet: general diet, labs: CBC, C/BMP, liver enzymes, Mag, PT/INR Consultants None Dispo: Admit to inpatient, d/c to home Code status: Full code as discussed with the patient who identifies mother, Tamera Chase as her surrogate and POA. [X] I have utilized all available immediate resources to obtain, update, or re view of the patient's current medications VTE Deep Vein Thrombosis/Pulmonary Embolism Present on Admission: No MIPS - Admit I confirm the patient?s Advance Care Plan is present, Code status is documented, Surrogate decision maker is in patient?s record: Yes MIPS - DC The patient has current or prior documentation of left ventricular ejection fraction (LVEF) less than 40%, or moderate or severely depressed left ventricular systolic function.: No COVID-19 COVID-19 status: Negative Result date/Date tested (Pos, Neg/Pending): 06/08/22
[2022-06-08 21:39] LABS: Alanine Aminotransferase 140 IU/L (<35); Albumin 4.1 g/dL (3.5-5.0); Albumin Globulin Ratio 1.2 (1.0-2.8); Alkaline Phosphatase 209 U/L (38-126); Aspartate Aminotransferase 409 IU/L (14-36); Bilirubin Conjugated 0.3 md/dL (0.0-0.3); Bilirubin Total 4.6 mg/dL (0.2-1.3); Bilirubin Unconjugated 3.1 mg/dL (0.0-1.1); Globulin 3.3 g/dL (1.7-4.1); HEMOLYSIS < 15 (0-50); Total Protein 7.4 g/dL (6.3-8.2)
[2022-06-08] MEDS: SODIUM CHLORIDE 0.9% 1,000 ML 100 ML IV (21:43)
[2022-06-08] MEDS: chlordiazePOXIDE 25 MG CAPSULE PO (21:45)
[2022-06-08] MEDS: LORazepam 2 MG/ML INJ IV (21:56)
[2022-06-08 22:53] VITALS: BP 131/76; PULSE 79; RESP 14; O2SAT 97
[2022-06-09] VITALS (9 sets, daily range): BP systolic 148–157; BP diastolic 86–94; PULSE 90–105; RESP 17–22; TEMP 36.6–37.8; O2SAT 94–98; BMI 27.2
[2022-06-09] MEDS: LORazepam 2 MG/ML INJ IV ×3 (01:14→19:16)
--- NOTE | 2022-06-09 01:20 | PC.NURSE ---
Addendum entered by Reny Fink R.N. 06/09/22 05:04: Medicating patient as needed with IV ativan. Patient responding well with decreasing tremors and able to sleep. Continue to monitor closely. Original Note: Received patient from ED in no distress. able to take a few steps from wheelchair to bed. Oriented to room, and initial assessment done. Patient with elevated blood pressure, tremors of hands noted. tremors increasing with attempting to eat/drink. Patient medicated with ativan slowly iv and awaiting results.
[2022-06-09 05:00] LABS: INR 1.5 (0.9-1.3); Prothrombin Time 16.8 SECONDS (10.1-12.7)
[2022-06-09 05:06] LABS: BUN Creatinine Ratio 13.3 (6-22); Blood Urea Nitrogen 6 mg/dL (7-17); Calcium 7.5 mg/dL (8.4-10.2); Carbon Dioxide 26 mmol/L (22-32); Chloride 99 mmol/L (98-107); Estimated Glomerular Filt Rate > 60 mL/min (>60); Glucose 119 mg/dL (70-100); HEMOLYSIS < 15 (0-50); Magnesium 1.1 mg/dL (1.6-2.3); Sodium 133 mmol/L (137-145)
[2022-06-09 05:07] LABS: Alanine Aminotransferase 116 IU/L (<35); Albumin 3.5 g/dL (3.5-5.0); Albumin Globulin Ratio 1.2 (1.0-2.8); Alkaline Phosphatase 176 U/L (38-126); Aspartate Aminotransferase 430 IU/L (14-36); Bilirubin Conjugated 1.9 md/dL (0.0-0.3); Bilirubin Total 6.1 mg/dL (0.2-1.3); Globulin 2.9 g/dL (1.7-4.1); HEMOLYSIS < 15 (0-50); Total Protein 6.4 g/dL (6.3-8.2)
[2022-06-09 05:10] LABS: Hematocrit 31.8 % (36-46); Hemoglobin 10.5 g/dL (12.0-16.0); Mean Corpuscular HGB Conc 33.1 % (30-36); Mean Corpuscular Hemoglobin 29.2 PG (26-34); Mean Corpuscular Volume 88.1 fL (80-100); Red Blood Cell Count 3.61 X10^6/uL (4.0-5.2)
[2022-06-09 05:19] LABS: White Blood Cell Count 1.7 X10^3/uL (4.5-11.0)
[2022-06-09 05:20] LABS: Add Manual Diff / Slide Review YES; Platelet Count 22 X10^3/uL (150-400)
--- NOTE | 2022-06-09 08:24 | PM.PN.1 ---
Subjective Subjective Date Patient Seen: 06/09/22 Interval history: She is seen today to follow up her alcoholism and pancytopenia. Her Liver US shows steatohepatitis. Her Abd MRI from April also shows Splenomegaly. The white blood count is 1.7 today. The platelets yesterday were 25 and are now 22. The hemoglobin is 12.5. The INR is 1.5. The potassium is 3.0. The magnesium is 1.1. The total bilirubine is 6.1. The AST is 430 with an alkaline phosphatase of 176. She will be given 40 meq twice daily of potassium chloride and 2 g of IV magnesium at this time. Her labs will be rechecked tomorrow. Will also contact Hematology for phone consult conversation. She says that she has never heard of any prior testing showing low white blood count or low platelets. She is drinking a 1/5 of Vodka daily. 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 Exam Vital Signs (past 8 hours): - 06/09/22 01:43 06/09/22 00:40 06/09/22 04:00 Temperature 99.2 F 99.0 F Pulse Rate 101 H 94 H 105 H Respiratory Rate 22 21 20 Blood Pressure 154/91 H 154/91 H 153/92 H Pulse Oximetry 94 95 06/09/22 03:35 Temperature Pulse Rate 103 H Respiratory Rate 22 Blood Pressure 153/92 H Pulse Oximetry Oxygen Delivery Method Room Air Narrative Exam Narrative: She seems a bit surprised to be in the hospital. She says that she has not heard of any hematologic abnormalities before. She has large bruises on the right arm and right flank. There is no obvious bleeding in the mouth or the eyes. There is no petechia. Heart is regular rate and rhythm without murmur. Lungs are clear to auscultation bilaterally. Abdomen is soft, bowel sounds positive, no organomegaly, no hepatomegaly, nontender. Extremities have no ankle edema. Objective Labs Result Diagrams: 06/09/22 04:28 06/09/22 04:28 Labs: Laboratory Results - last 24 hr 06/08/22 06/08/22 06/08/22 17:16 17:16 17:16 WBC 1.6 L* RBC 4.24 Hgb 12.2 Hct 36.5 MCV 86.2 MCH 28.7 MCHC 33.3 RDW 17.1 H Plt Count 25 L* Neut % (Auto) Not Reportable Lymph % (Auto) Not Reportable [place] % (Auto) Not Reportable Eos % (Auto) Not Reportable Baso % (Auto) Not Reportable Lymph # (Auto) Not Reportable [place] # (Auto) Not Reportable Baso # (Auto) Not Reportable Total Counted 50 Seg Neutrophils % 74.0 H Lymphocytes % (Manual) 26.0 Neutrophils # (Manual) 1184 L Platelet Estimate Decreased on smear RBC Morphology Normal morphology PT 16.3 H INR 1.4 H Sodium 137 Potassium 3.4 Chloride 98 Carbon Dioxide 25 BUN 7 Creatinine 0.38 L Estimated GFR > 60 BUN/Creatinine Ratio 18.4 Glucose 121 H Calcium 8.3 L Magnesium Total Bilirubin 4.5 H Conjugated Bilirubin Unconjugated Bilirubin AST 393 H ALT 142 H Alkaline Phosphatase 209 H Ammonia Total Protein 7.7 Albumin 4.0 Globulin 3.7 Albumin/Globulin Ratio 1.1 Lipase 218 Nasal Screen MRSA (PCR) SARS-CoV-2 (PCR) 06/08/22 06/08/22 06/08/22 17:16 17:16 17:16 WBC RBC Hgb Hct MCV MCH MCHC RDW Plt Count Neut % (Auto) Lymph % (Auto) [place] % (Auto) Eos % (Auto) Baso % (Auto) Lymph # (Auto) [place] # (Auto) Baso # (Auto) Total Counted Seg Neutrophils % Lymphocytes % (Manual) Neutrophils # (Manual) Platelet Estimate RBC Morphology PT INR Sodium Potassium Chloride Carbon Dioxide BUN Creatinine Estimated GFR BUN/Creatinine Ratio Glucose Calcium Magnesium Total Bilirubin 4.6 H Conjugated Bilirubin 0.3 Unconjugated Bilirubin 3.1 H AST 409 H ALT 140 H Alkaline Phosphatase 209 H Ammonia 14 Total Protein 7.4 Albumin 4.1 Globulin 3.3 Albumin/Globulin Ratio 1.2 Lipase Nasal Screen MRSA (PCR) SARS-CoV-2 (PCR) Negative 06/09/22 06/09/22 06/09/22 01:00 04:28 04:28 WBC 1.7 L* RBC 3.61 L Hgb 10.5 L Hct 31.8 L MCV 88.1 MCH 29.2 MCHC 33.1 RDW 17.0 H Plt Count 22 L* Neut % (Auto) Not Reportable Lymph % (Auto) Not Reportable [place] % (Auto) Not Reportable Eos % (Auto) Not Reportable Baso % (Auto) Not Reportable Lymph # (Auto) Not Reportable [place] # (Auto) Not Reportable Baso # (Auto) Not Reportable Total Counted Seg Neutrophils % Lymphocytes % (Manual) Neutrophils # (Manual) Platelet Estimate RBC Morphology PT 16.8 H INR 1.5 H Sodium Potassium Chloride Carbon Dioxide BUN Creatinine Estimated GFR BUN/Creatinine Ratio Glucose Calcium Magnesium Total Bilirubin Conjugated Bilirubin Unconjugated Bilirubin AST ALT Alkaline Phosphatase Ammonia Total Protein Albumin Globulin Albumin/Globulin Ratio Lipase Nasal Screen MRSA (PCR) Negative for mrsa SARS-CoV-2 (PCR) 06/09/22 06/09/22 04:28 04:28 WBC RBC Hgb Hct MCV MCH MCHC RDW Plt Count Neut % (Auto) Lymph % (Auto) [place] % (Auto) Eos % (Auto) Baso % (Auto) Lymph # (Auto) [place] # (Auto) Baso # (Auto) Total Counted Seg Neutrophils % Lymphocytes % (Manual) Neutrophils # (Manual) Platelet Estimate RBC Morphology PT INR Sodium 133 L Potassium 3.0 L Chloride 99 Carbon Dioxide 26 BUN 6 L Creatinine 0.45 L Estimated GFR > 60 BUN/Creatinine Ratio 13.3 Glucose 119 H Calcium 7.5 L Magnesium 1.1 L Total Bilirubin 6.1 H Conjugated Bilirubin 1.9 H Unconjugated Bilirubin 3.0 H AST 430 H ALT 116 H Alkaline Phosphatase 176 H Ammonia Total Protein 6.4 Albumin 3.5 Globulin 2.9 Albumin/Globulin Ratio 1.2 Lipase Nasal Screen MRSA (PCR) SARS-CoV-2 (PCR) [facility] Medical History (Updated 06/09/22 @ 01:56 by Brooklyn Lopez DO) Alcohol abuse Thrombocythemia Surgical History (Updated 06/08/22 @ 22:07 by RICHARD Meza) No history of previous surgery Family History (Updated 06/08/22 @ 22:08 by RICHARD Meza) Father Depression Mother No pertinent past medical history Social History household members: friend(s) Smoking Status: Current some day smoker alcohol intake: current Assessment & Plan Assessment & Plan narrative: ? Acute alcohol withdrawal, present on admission She was administered a loading dose of IV phenobarbatol 260 mg followed by 130 mg IV 2 hours later She took one dose of librium 50 mg and then was started on 25 mg po tid Ativan per [facility] protocol Seizure precautions Multi-vitamin, Folic acid and oral thiamine daily consult for outpatient follow-up Suspected alcoholic hepatitis Continue daily monitoring of liver enzymes Acute hepatitis panel sent She is likely going to need outpatient GI/radiology ct technologist followup Thrombocytopenia, unknown if chronic Pharmacological VTE prophylaxis contraindicated in the setting of severe thrombocytopenia (platlet count of 25) 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 Platelets 22 on 06/[address] 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 Time Spent With Patient Critical Care time: I spent a total of [] minutes of critical care time on this patient's care today; this time is exclusive of procedural time. Quality VTE Deep Vein Thrombosis/Pulmonary Embolism Present on Admission: No
[2022-06-09 08:25] LABS: Neutrophils Absolute Manual 986 /uL (3000-5900); Total Cells Counted 50
[2022-06-09 08:27] LABS: Anisocytosis 1+
[2022-06-09 08:28] LABS: Platelet Estimate Decreased on smear; Stomatocytes 1+
[2022-06-09] MEDS: POTASSIUM CHLORIDE 20 MEQ TAB 40 MEQ PO ×2 (08:44→13:31)
[2022-06-09] MEDS: MAGNESIUM CHLORIDE 64 MG TABLET 128 MG PO ×2 (08:44→15:45)
[2022-06-09] MEDS: FOLIC ACID 1 MG TABLET PO (08:48)
[2022-06-09] MEDS: MULTIVITAMIN 1 TABLET 1 TAB PO (08:48)
[2022-06-09] MEDS: THIAMINE 100 MG TABLET PO (08:48)
[2022-06-09] MEDS: chlordiazePOXIDE 25 MG CAPSULE PO ×3 (08:49→20:48)
[2022-06-09] MEDS: MAGNESIUM SULFATE 2 GM/50 ML PIGGYBACK IV (08:49)
--- NOTE | 2022-06-09 13:56 | CM.DANOTE ---
Initial DCP Assessment Note Pt is a 31 yo female, resident of [place], arrives by private vehicle, with encouragement from PCP for Liver enzymes and bilirubin being really high. PMH includes smoker and daily drinker , patient admits to drinking a bottle of vodka daily, takes lexapro for depression. Patient admitted for acute alcohol withdrawal. PCP: Silvia Kent [facility] [employer] and [place] This assessment started with information available on the chart at this time. Dr Tapia advises waiting on medical plan of care to come together today before assessing DC needs CM team will plan to follow closely for coordination of plan and to offer [place] resources as needed or requested FREEMAN Sauer Discharge Planning/Care Management Advanced directive, confirm from FAMILY Start: 06/09/22 01:03 Freq: Q24H Status: Active Protocol: Document 06/09/22 01:03 DL (Rec: 06/09/22 01:06 DL [id number]) Advance Directive, confirm on record Time 00:45 Person contacted Kaitlin Copy received No Copy received No Advanced directive available on record No CM Discharge Assessment Start: 06/09/22 13:53 Freq: Status: Active Protocol: Document 06/09/22 13:53 JW (Rec: 06/09/22 13:56 JW [id number]) Discharge Planning Assessment Assigned Instrument/Control Technician FREEMAN Braun DPPAPA/Assigned Designee Name Terrance Perez, friend Contact Information [phone] Advance Directives? No History Provided By Medical Record Prior Living Arrangements Apartment/Condo Household Members friend(s) Type of transporation used prior to Drives own vehicle admit Independent with ADL's Yes Is patient alert and oriented? Yes Comment Awaiting medical plan of care to unfold before assessing for DC needs Comment Unknown at this time
[2022-06-10] VITALS: BP 165/97; PULSE 107; RESP 18; TEMP 37.3; O2SAT 95
[2022-06-10 04:00] VITALS: BP 154/85; PULSE 97; RESP 19; TEMP 36.9; O2SAT 94
[2022-06-10 04:37] LABS: INR 1.4 (0.9-1.3); Prothrombin Time 16.6 SECONDS (10.1-12.7)
[2022-06-10 04:42] LABS: Alanine Aminotransferase 119 IU/L (<35); Albumin 3.6 g/dL (3.5-5.0); Alkaline Phosphatase 185 U/L (38-126); Aspartate Aminotransferase 345 IU/L (14-36); Bilirubin Total 3.3 mg/dL (0.2-1.3); Calcium 8.4 mg/dL (8.4-10.2); Carbon Dioxide 25 mmol/L (22-32); Chloride 105 mmol/L (98-107); Estimated Glomerular Filt Rate > 60 mL/min (>60); Globulin 3.5 g/dL (1.7-4.1); Glucose 121 mg/dL (70-100); HEMOLYSIS < 15 (0-50); Magnesium 1.8 mg/dL (1.6-2.3); Potassium 3.9 mmol/L (3.4-5.1); Sodium 138 mmol/L (137-145); Total Protein 7.1 g/dL (6.3-8.2)
[2022-06-10 04:43] LABS: Blood Urea Nitrogen 2 mg/dL (7-17)
[2022-06-10 04:54] LABS: Hemoglobin 11.3 g/dL (12.0-16.0); Mean Corpuscular Hemoglobin 29.2 PG (26-34); Mean Corpuscular Volume 88.3 fL (80-100); Red Blood Cell Count 3.86 X10^6/uL (4.0-5.2); Red Cell Distribution Width 17.2 % (11.6-14.8)
[2022-06-10 04:59] LABS: Platelet Count 24 X10^3/uL (150-400); White Blood Cell Count 1.6 X10^3/uL (4.5-11.0)
[2022-06-10 05:00] LABS: Add Manual Diff / Slide Review YES
[2022-06-10 05:13] LABS: Alanine Aminotransferase 117 IU/L (<35); Albumin 3.5 g/dL (3.5-5.0); Albumin Globulin Ratio 1.1 (1.0-2.8); Alkaline Phosphatase 191 U/L (38-126); Aspartate Aminotransferase 335 IU/L (14-36); Bilirubin Conjugated 0.5 md/dL (0.0-0.3); Bilirubin Total 3.2 mg/dL (0.2-1.3); Bilirubin Unconjugated 1.4 mg/dL (0.0-1.1); Globulin 3.1 g/dL (1.7-4.1); HEMOLYSIS < 15 (0-50); Total Protein 6.6 g/dL (6.3-8.2)
--- NOTE | 2022-06-10 05:54 | PC.NURSE ---
Patient requiring only one extra dose of medication this shift. Patient able to sleep throughout night.
[2022-06-10 07:29] LABS: Anisocytosis 1+; Neutrophils Absolute Manual 816 /uL (3000-5900); Platelet Estimate Decr; Total Cells Counted 100
[2022-06-10 07:30] LABS: RBC Morphology See
[2022-06-10 08:07] VITALS: BP 121/81; PULSE 89; RESP 16; TEMP 36.7; O2SAT 96
--- NOTE | 2022-06-10 08:30 | PM.DS.1 ---
History of Present Illness History of Present Illness Date Patient Seen: 06/10/22 Time Patient Seen: 08:31 Chief complaint: Liver enzymes really high Narrative: Per Admitting Provider, Kaitlin Chase is a pleasant 31 y.o. female who was seeing her PCP at [facility] for a prescription for librium for alcohol withdrawal. She endorses having the shakes nauseous, sweats, but states her tremors are improving. Told the ED provider she had a mild headache, agitation and palpitations. Denies having had seizures or pancreatitis. Has undergone inpatient detox in the [facility] where she stayed for 5 days. States she drinks a bottle of vodka/daily and is tapering down on tobacco use to a couple of cigarettes/day. States she takes Lexapro 20 mg for depression and pantoprazole for GERD. Earlier today, she presented to her PCP who primo labs, instructed her to present to [facility] ED for further treatment due to very high liver enzymes and bilirubin. Ultrasound of the abdomen did note marked hepatomegaly with severe hepatic steatosis and cholelithiasis without evidence of acute cholelithiasis. She is afebrile, blood pressure 136/77 heart rate 83, respiratory rate 16, oxygen saturation 90% on room air she weighs 86.1 kg with a BMI of 27. WBC is extremely low at 1.6 platelet count 25 INR is 1.4 with a PT of 16.3 glucose 121 calcium 8.3 T bili 4.6 AST 409 ALT 140 alk-phos 209 Discharge Providers Provider Date of admission: 06/08/22 20:14 Discharge Date: 06/10/22 Primary care physician: Silvia Kent, LISA, [facility] Consults: 06/08/22 20:23 Consult to Dietitian, Adult Routine Comment: Reason For Exam: ETOH 06/08/22 20:37 Consult to SHOP TAILOR - Hooker Inspector Routine Comment: access to inpatient ETOH rehab Discharge provider: Edwin Haynes DO Summary Hospital Course Discharge Diagnosis: Acute alcohol withdrawal, present on admission Pancytopenia Alcoholic hepatitis, improved Hospital Course: This is a 31 year old female with PMH of EtOH use admitted with acute alcohol withdrawal, pancytopenia with severely low Plt in the 20s, and alcoholic hepatitis. DF at maximum was 26, steroids were not indicated. Abdominal ultrasound showed no biliary obstruction and hepatomegaly. Patient had improvement in her withdrawal symptoms with as needed ativan as well as a librium taper. Her platelet counts remained stable in the 20s, no active bleeding was observed over her hospitalization and per hematology is likely due to marrow suppression in the setting of EtOH use. Cessation of alcohol was advised and patient was motivated to stop drinking but did not wish for additional resources at this time. Her transaminase levels improved and she was discharged home with no continued withdrawal symptoms, no evidence of bleeding, no abdominal pain and tolerating a diet. Primary care follow up is recommended at discharge to continue to monitor her pancytopenia, ideally in 1-2 weeks for her next evaluation. Time Spent with Patient Time spent: Greater than 30 minutes Exam Vital Signs (past 8 hours): - 06/10/22 04:00 06/10/22 08:07 Temperature 98.4 F 98.1 F Pulse Rate 97 H 89 Respiratory Rate 19 16 Blood Pressure 154/85 H 121/81 Pulse Oximetry 94 96 Oxygen Flow Rate 0 Oxygen Delivery Method Room Air Oxygen Flow Rate 0 Narrative Exam Narrative: Young female, no acute distress, sitting cross legged in bed. She has large bruises on the right arm and right flank, stable. There is no obvious bleeding in the mouth or the eyes. There is no petechia. Heart is regular rate and rhythm without murmur. Lungs are clear to auscultation bilaterally. Abdomen is S NT ND. Extremities have no edema and no joint effusions. Objective Labs Result Diagrams: 06/10/22 04:07 06/10/22 04:07 Labs: Laboratory Results - last 24 hr 06/09/22 06/10/22 06/10/22 16:17 04:07 04:07 WBC RBC Hgb Hct MCV MCH MCHC RDW Plt Count Neut % (Auto) Lymph % (Auto) [place] % (Auto) Eos % (Auto) Baso % (Auto) Lymph # (Auto) [place] # (Auto) Baso # (Auto) Total Counted Seg Neutrophils % Band Neutrophils % Lymphocytes % (Manual) Monocytes % (Manual) Eosinophils % (Manual) Basophils % (Manual) Neutrophils # (Manual) Platelet Estimate Plt Morphology Comment RBC Morphology Anisocytosis PT 16.6 H INR 1.4 H Sodium Potassium Chloride Carbon Dioxide BUN Creatinine Estimated GFR BUN/Creatinine Ratio Glucose Calcium Magnesium Total Bilirubin 3.2 H Conjugated Bilirubin 0.5 H Unconjugated Bilirubin 1.4 H AST 335 H ALT 117 H Alkaline Phosphatase 191 H Total Protein 6.6 Albumin 3.5 Globulin 3.1 Albumin/Globulin Ratio 1.1 Nasal Screen MRSA (PCR) Cancelled 06/10/22 06/10/22 04:07 04:07 WBC 1.6 L* RBC 3.86 L Hgb 11.3 L Hct 34.0 L MCV 88.3 MCH 29.2 MCHC 33.0 RDW 17.2 H Plt Count 24 L* Neut % (Auto) Not Reportable Lymph % (Auto) Not Reportable [place] % (Auto) Not Reportable Eos % (Auto) Not Reportable Baso % (Auto) Not Reportable Lymph # (Auto) Not Reportable [place] # (Auto) Not Reportable Baso # (Auto) Not Reportable Total Counted 100 Seg Neutrophils % 50.0 Band Neutrophils % 1.0 L Lymphocytes % (Manual) 36.0 Monocytes % (Manual) 8.0 Eosinophils % (Manual) 4.0 Basophils % (Manual) 1.0 Neutrophils # (Manual) 816 L Platelet Estimate Decr Plt Morphology Comment RBC Morphology See Anisocytosis 1+ H PT INR Sodium 138 Potassium 3.9 Chloride 105 Carbon Dioxide 25 BUN 2 L Creatinine 0.40 L Estimated GFR > 60 BUN/Creatinine Ratio 5.0 L Glucose 121 H Calcium 8.4 Magnesium 1.8 Total Bilirubin 3.3 H Conjugated Bilirubin Unconjugated Bilirubin AST 345 H ALT 119 H Alkaline Phosphatase 185 H Total Protein 7.1 Albumin 3.6 Globulin 3.5 Albumin/Globulin Ratio 1.0 Nasal Screen MRSA (PCR) [facility] Medical History (Updated 06/09/22 @ 01:56 by Brooklyn Lopez DO) Alcohol abuse Thrombocythemia Surgical History (Updated 06/08/22 @ 22:07 by RICHARD Meza) No history of previous surgery Family History (Updated 06/08/22 @ 22:08 by RICHARD Meza) Father Depression Mother No pertinent past medical history Social History household members: friend(s) Smoking Status: Current some day smoker alcohol intake: current Discharge Plan Discharge Plan Patient Disposition: Home Provider Discharge Comment: You were admitted to the hospital with mild alcohol withdrawal as well as liver inflammation and low blood counts due to alcohol. These will continue to improve with alcohol cessation. Please follow up with your primary care provider to continue to follow your blood counts. Discharge orders & Medications Prescriptions: No Action No Known Home Medications Follow up/Referrals: Silvia Kent, DNP, [facility] [Primary Care Provider] - Diet/Activity/Treatments Diet: Diet as Tolerated Activity: As tolerated Discharge Data Primary Care Provider: Silvia Kent Quality VTE Deep Vein Thrombosis/Pulmonary Embolism Present on Admission: No
[2022-06-10] MEDS: MULTIVITAMIN 1 TABLET 1 TAB PO (08:46)
[2022-06-10] MEDS: FOLIC ACID 1 MG TABLET PO (08:46)
[2022-06-10] MEDS: THIAMINE 100 MG TABLET PO (08:46)
[2022-06-11 14:49] LABS: HBsAg Screen Negative (Negative); Hepatitis A Antibody IgM Negative (Negative); Hepatitis B Core Antibody IgM Negative (Negative); Hepatitis C Antibody <0.1 s/co ratio (0.0-0.9)
[2022-06-12 17:11] LABS: HIV 1 RNA Non Reactive (Non Reactive); HIV 2 RNA Non Reactive (Non Reactive)
== END 2022-06-10 10:12 | disposition home or self-care (01) | DRG 775 ==
LOC: ED 16:47 → AC 20:15 → ICU 23:56
PROVIDERS: Family Medicine; Admitting Provider Nurse Practitioner Family; Emergency Provider Emergency Medicine; PCP Nurse Practitioner Family; Referring Provider Emergency Medicine; Visit Provider Nurse Practitioner Family
DX: F10.139 Alcohol abuse with withdrawal, unspecified (principal); K70.10 Alcoholic hepatitis without ascites; F17.210 Nicotine dependence, cigarettes, uncomplicated; D61.818 Other pancytopenia; Z20.822 Contact with and (suspected) exposure to COVID-19
CPT/HCPCS: 36415; 76705; 80048; 80053; 80074; 80076; 82140; 83690; 83735; 85007; 85025; 85610; 87535; 87538; 87635; 87797; 96374; 96375; 96376; 99284; C9803; J2060; J2405; J2560; J3475

== ENCOUNTER → 2022-07-30 14:53 | Outpatient (CLI) | payer OTHER, MEDICAID, SELFPAY ==
[2022-06-09 00:44] VITALS: BMI 27.2
[2022-07-30 15:21] LABS: Add Manual Diff / Slide Review YES; Hematocrit 37.9 % (36-46); Hemoglobin 12.3 g/dL (12.0-16.0); Mean Corpuscular HGB Conc 32.6 % (30-36); Mean Corpuscular Hemoglobin 29.5 PG (26-34); Mean Corpuscular Volume 90.6 fL (80-100); Platelet Count 137 X10^3/uL (150-400); Red Blood Cell Count 4.18 X10^6/uL (4.0-5.2); Red Cell Distribution Width 17.4 % (11.6-14.8); White Blood Cell Count 4.9 X10^3/uL (4.5-11.0)
[2022-07-30 15:29] LABS: INR 1.3 (0.9-1.3); Prothrombin Time 14.7 SECONDS (10.1-12.7)
[2022-07-30 15:48] LABS: Anisocytosis 1+; Neutrophils Absolute Manual 2205 /uL (3000-5900); RBC Morphology See; Stomatocytes 1+; Total Cells Counted 100
[2022-07-30 16:06] LABS: Alanine Aminotransferase 81 IU/L (<35); Albumin 4.3 g/dL (3.5-5.0); Albumin Globulin Ratio 1.2 (1.0-2.8); Alkaline Phosphatase 103 U/L (38-126); Aspartate Aminotransferase 136 IU/L (14-36); Bilirubin Total 1.3 mg/dL (0.2-1.3); Blood Urea Nitrogen 7 mg/dL (7-17); Calcium 9.7 mg/dL (8.4-10.2); Carbon Dioxide 27 mmol/L (22-32); Chloride 101 mmol/L (98-107); Estimated Glomerular Filt Rate > 60 mL/min (>60); Globulin 3.5 g/dL (1.7-4.1); Glucose 83 mg/dL (70-100); HEMOLYSIS < 15 (0-50); Potassium 4.8 mmol/L (3.4-5.1); Sodium 137 mmol/L (137-145); Total Protein 7.8 g/dL (6.3-8.2)
== END ==
PROVIDERS: PCP Nurse Practitioner Family; Referring Provider Student in an Organized Health Care Education/Training Program; Visit Provider Student in an Organized Health Care Education/Training Program
DX: F10.10 Alcohol abuse, uncomplicated (principal)
CPT/HCPCS: 36415; 80053; 85007; 85025; 85610

== ENCOUNTER 2022-10-25 11:13 | Emergency (ER) | payer OTHER, MEDICAID, SELFPAY ==
[2022-06-09 00:44] VITALS: BMI 27.2
[2022-10-25] VITALS (26 sets, daily range): BP systolic 118–158; BP diastolic 58–87; PULSE 95–128; RESP 13–24; TEMP 36.8; O2SAT 93–99; BMI 30.1
[2022-10-25 11:54] LABS: Add Manual Diff / Slide Review NO; Basophils Absolute Auto 0 /uL (0-100); Basophils Percent Auto 0.7 % (0-2); Eosinophils Absolute Auto 0 /uL (0-450); Eosinophils Percent Auto 0.6 % (2-4); Hematocrit 36.5 % (36-46); Hemoglobin 12.1 g/dL (12.0-16.0); Lymphocytes Absolute Auto 800 /uL (1100-4500); Lymphocytes Percent Auto 17.1 % (25-40); Mean Corpuscular Hemoglobin 26.5 PG (26-34); Mean Corpuscular Volume 80.1 fL (80-100); Monocytes Absolute Auto 200 /uL (0-900); Monocytes Percent Auto 3.2 % (3-14); Neutrophils Absolute Auto 3800 /uL (1500-7000); Neutrophils Percent Auto 78.4 % (50-75); Platelet Count 48 X10^3/uL (150-400); Red Blood Cell Count 4.56 X10^6/uL (4.0-5.2); White Blood Cell Count 4.8 X10^3/uL (4.5-11.0)
[2022-10-25 11:58] LABS: Bilirubin Urine UA 2+ (NEGATIVE); Color Urine UA YELLOW; Glucose Urine UA NEGATIVE (Negative); Ketones Urine UA NEGATIVE (NEGATIVE); Leukocyte Esterase Urine UA NEGATIVE (NEGATIVE); Nitrite Urine UA NEGATIVE (Negative); Occult Blood Urine UA 3+ (Negative); Protein Urine UA TRACE (Negative)
--- NOTE | 2022-10-25 12:05 | ED_ITS ---
HPI - Psych <Hossein Ambrose PA-C - Last Filed: 10/25/22 20:25> General Chief Complaint: Psychiatric Symptoms Stated Complaint: detoxing/fever/SI thoughts Time Seen by Provider: 10/25/22 11:45 Source: patient Mode of arrival: Ambulatory History of Present Illness HPI Narrative: This is a 32-year-old female presents emergency department due to SI with plans to stab herself in the neck. Patient states that she drinks daily although she tried to stop for a period of 4 months about 6 months ago. She is been drinking a daily bottle of hard alcohol for the last couple of weeks. She last drank this morning just a few hours ago. Patient states that occasionally has thoughts of hurting herself and ?wondering what would happen if I was not there?. She states that she then thinks about family that loves her which c auses her to change her mind. She has no thoughts of hurting anyone else. She does state that she sees ?shadows? that may not be there. No auditory hallucinations. Patient states that she is a history of depression and is taking citalopram as prescribed. She states that she had been nauseated and vomited this morning. She is also very mildly shaky although she states that this is due to anxiety. She denies any chest pain, shortness of breath, fevers, or abdominal pain. She does state that she has a runny nose and a cough. Related Data Previous Rx's Medication Instructions Recorded chlordiazepoxide HCl 25 mg capsule See Rx Instructions .Route 10/26/22 .COMPLEX #11 caps Allergies Allergy/AdvReac Type Severity Reaction Status Date / Time aspirin Allergy Verified 10/25/22 11:28 Review of Systems <Hossein Ambrose PA-C - Last Filed: 10/25/22 20:25> Review of Systems Narrative: GENERAL: Denies chills, fatigue, malaise, fever, sweats. HEENT: Reports rhinorrhea and a cough RESPIRATORY: Denies dyspnea, , wheezing, hemoptysis, sputum. CARDIOVASCULAR: Denies chest pain, palpitations, orthopnea, edema, GASTROINTESTINAL: Reports nausea, vomiting, denies abdominal pain, diarrhea, constipation, melena. : Denies dysuria, frequency, incontinence, hematuria, urinary retention. MUSCULOSKELETAL: denies weakness, joint pain, or bony pain SKIN: Denies rash, skin lesions, or other NEUROLOGIC: Denies weakness, headache, numbness, change in speech, confusion, seizures, incoordination. PSYCHIATRIC: SI, visual hallucinations 12 point review of systems is negative except for those stated above Patient History <Hossein Ambrose PA-C - Last Filed: 10/25/22 20:25> Medical History (Updated 10/26/22 @ 07:02 by Brooklyn Lopez DO) Alcohol abuse Thrombocythemia Surgical History (Updated 06/08/22 @ 22:07 by RICHARD Meza) No history of previous surgery Family History (Updated 06/08/22 @ 22:08 by RICHARD Meza) Father Depression Mother No pertinent past medical history Social History household members: friend(s) Smoking Status: Former smoker alcohol intake: current Smoking Status: Former smoker alcohol intake frequency: 3 or more drinks per day Alcohol type: hard liquor Substance Use Type: does not use Exam <Hossein Ambrose PA-C - Last Filed: 10/25/22 20:25> Narrative Exam Narrative: GENERAL: Well-developed patient, in mild distress. Very mild tremors noted at rest. Does not appear diaphoretic. HEAD: Atraumatic. Normocephalic. EYES: Pupils equal round and reactive. Extraocular motions intact. No scleral icterus. No injection or drainage. ENT: Nose without bleeding, purulent drainage. Throat without erythema, tonsillar hypertrophy or exudate. Airway patent. NECK: Trachea midline. Non tender CARDIOVASCULAR: Tachycardic with regular rhythm without murmurs, gallops, or rubs. RESPIRATORY: Clear to auscultation. Breath sounds equal bilaterally. No wheezes, rales, or rhonchi. GASTROINTESTINAL: Abdomen soft, non-tender, nondistended. EXTREMITIES: No edema or joint tenderness. BACK: Nontender without deformity or crepitance. No flank tenderness. NEURO: AOx3. SKIN: No rash or erythema of visible areas Initial Vital Signs Initial Vital Signs: Vital Signs Temperature 98.3 F 10/25/22 11:20 Pulse Rate 124 H 10/25/22 11:20 Respiratory Rate 18 10/25/22 11:20 Blood Pressure 158/87 H 10/25/22 11:20 Pulse Oximetry 96 10/25/22 11:20 Oxygen Delivery Method Room Air 10/25/22 11:20 <Brooklyn Lopez DO - Last Filed: 10/26/22 07:41> Initial Vital Signs Initial Vital Signs: Vital Signs Temperature 98.3 F 10/25/22 11:20 Pulse Rate 124 H 10/25/22 11:20 Respiratory Rate 18 10/25/22 11:20 Blood Pressure 158/87 H 10/25/22 11:20 Pulse Oximetry 96 10/25/22 11:20 Oxygen Delivery Method Room Air 10/25/22 11:20 Course <Hossein Ambrose PA-C - Last Filed: 10/25/22 20:25> Orders Ordered: Lorazepam (Lorazepam 2 Mg/Ml Inj) 1 mg IV Q6HR PRN PRN Reason: Anxiety Last Admin: 10/26/22 01:12 Dose: 1 mg Documented By: JOAQUÍN Discontinued Medications Thiamine HCl 100 mg/ Sodium (Chloride) 101 mls @ 404 mls/hr IV NOW ONE Stop: 10/25/22 11:49 Last Infusion: 10/25/22 12:45 Dose: 0 mls/hr Documented By: Admin: 10/25/22 12:07 Dose: 404 mls/hr Documented By: GABRIEL Sodium Chloride (Normal Saline 0.9%) 1,000 mls @ 1,000 mls/hr IV BOLUS ONE Stop: 10/25/22 13:24 Last Infusion: 10/25/22 13:44 Dose: 0 mls/hr Documented By: Admin: 10/25/22 12:31 Dose: 1,000 mls/hr Documented By: GABRIEL Sodium Chloride (Normal Saline 0.9%) 1,000 mls @ 1,000 mls/hr IV BOLUS ONE Stop: 10/25/22 22:28 Last Infusion: 10/25/22 22:45 Dose: 0 mls/hr Documented By: Admin: 10/25/22 21:33 Dose: 1,000 mls/hr Documented By: IRENA Lorazepam (Lorazepam 2 Mg/Ml Inj) 1 mg IV NOW ONE Stop: 10/25/22 15:29 Last Admin: 10/25/22 15:34 Dose: 1 mg Documented By: GABRIEL Ondansetron HCl (Ondansetron 4 Mg/2 Ml Inj) 4 mg IV NOW ONE Stop: 10/25/22 12:26 Last Admin: 10/25/22 12:30 Dose: 4 mg Documented By: GABRIEL Ondansetron HCl (Ondansetron 4 Mg/2 Ml Inj) 4 mg IV NOW ONE Stop: 10/25/22 14:45 Last Admin: 10/25/22 14:53 Dose: 4 mg Documented By: GABRIEL Phenobarbital (Phenobarbital 65 Mg/Ml Vial) 260 mg IV NOW ONE Stop: 10/25/22 11:49 Last Admin: 10/25/22 12:08 Dose: 260 mg Documented By: GABRIEL Phenobarbital (Phenobarbital 65 Mg/Ml Vial) 130 mg IV NOW ONE Stop: 10/25/22 20:30 Last Admin: 10/25/22 20:37 Dose: 130 mg Documented By: IRENA Phenobarbital (Phenobarbital 65 Mg/Ml Vial) 130 mg IV NOW ONE Stop: 10/25/22 23:09 Last Admin: 10/25/22 23:25 Dose: 130 mg Documented By: IRENA Vital Signs Vital signs: Vital Signs - 8 hr 10/26/22 00:00 10/26/22 00:30 10/26/22 01:06 Pulse Rate 100 H 103 H 106 H Respiratory Rate 21 20 23 Blood Pressure Pulse Oximetry 95 95 95 Oxygen Delivery Method Oxygen Flow Rate 10/26/22 01:07 10/26/22 01:07 10/26/22 01:30 Pulse Rate 101 H Respiratory Rate 15 Blood Pressure 144/83 H 136/82 Pulse Oximetry 96 Oxygen Delivery Method Oxygen Flow Rate 10/26/22 01:30 10/26/22 02:00 10/26/22 02:30 Pulse Rate 93 H 93 H Respiratory Rate 18 18 Blood Pressure 139/88 129/86 Pulse Oximetry 96 94 Oxygen Delivery Method Oxygen Flow Rate 10/26/22 02:30 10/26/22 03:00 10/26/22 03:00 Pulse Rate 97 H 85 Respiratory Rate 18 26 H Blood Pressure 134/84 Pulse Oximetry 94 94 Oxygen Delivery Method Oxygen Flow Rate 10/26/22 03:30 10/26/22 03:30 10/26/22 04:00 Pulse Rate 101 H Respiratory Rate 19 Blood Pressure 136/88 141/85 H Pulse Oximetry 96 Oxygen Delivery Method Oxygen Flow Rate 10/26/22 04:00 10/26/22 04:30 10/26/22 04:30 Pulse Rate 101 H 105 H Respiratory Rate 17 15 Blood Pressure 146/89 H Pulse Oximetry 95 95 Oxygen Delivery Method Oxygen Flow Rate 10/26/22 05:00 10/26/22 05:00 10/26/22 05:30 Pulse Rate 94 H Respiratory Rate 18 Blood Pressure 145/85 H 138/86 Pulse Oximetry 95 Oxygen Delivery Method Oxygen Flow Rate 10/26/22 05:30 10/26/22 06:00 10/26/22 06:00 Pulse Rate 93 H 98 H Respiratory Rate 20 23 Blood Pressure 139/83 Pulse Oximetry 96 93 Oxygen Delivery Method Oxygen Flow Rate 10/26/22 06:30 10/26/22 06:30 10/26/22 07:00 Pulse Rate 112 H Respiratory Rate Blood Pressure 121/68 152/85 H Pulse Oximetry 97 Oxygen Delivery Method Oxygen Flow Rate 10/26/22 07:00 10/26/22 07:30 10/26/22 07:30 Pulse Rate 104 H 108 H Respiratory Rate 19 20 Blood Pressure 142/85 H Pulse Oximetry 96 97 Oxygen Delivery Method Nasal Cannula Oxygen Flow Rate 2 <Brooklyn Lopez, - Last Filed: 10/26/22 07:41> Orders Ordered: Lorazepam (Lorazepam 2 Mg/Ml Inj) 1 mg IV Q6HR PRN PRN Reason: Anxiety Last Admin: 10/26/22 01:12 Dose: 1 mg Documented By: JOAQUÍN Discontinued Medications Thiamine HCl 100 mg/ Sodium (Chloride) 101 mls @ 404 mls/hr IV NOW ONE Stop: 10/25/22 11:49 Last Infusion: 10/25/22 12:45 Dose: 0 mls/hr Documented By: Admin: 10/25/22 12:07 Dose: 404 mls/hr Documented By: GABRIEL Sodium Chloride (Normal Saline 0.9%) 1,000 mls @ 1,000 mls/hr IV BOLUS ONE Stop: 10/25/22 13:24 Last Infusion: 10/25/22 13:44 Dose: 0 mls/hr Documented By: Admin: 10/25/22 12:31 Dose: 1,000 mls/hr Documented By: GABRIEL Sodium Chloride (Normal Saline 0.9%) 1,000 mls @ 1,000 mls/hr IV BOLUS ONE Stop: 10/25/22 22:28 Last Infusion: 10/25/22 22:45 Dose: 0 mls/hr Documented By: Admin: 10/25/22 21:33 Dose: 1,000 mls/hr Documented By: IRENA Lorazepam (Lorazepam 2 Mg/Ml Inj) 1 mg IV NOW ONE Stop: 10/25/22 15:29 Last Admin: 10/25/22 15:34 Dose: 1 mg Documented By: GABRIEL Ondansetron HCl (Ondansetron 4 Mg/2 Ml Inj) 4 mg IV NOW ONE Stop: 10/25/22 12:26 Last Admin: 10/25/22 12:30 Dose: 4 mg Documented By: GABRIEL Ondansetron HCl (Ondansetron 4 Mg/2 Ml Inj) 4 mg IV NOW ONE Stop: 10/25/22 14:45 Last Admin: 10/25/22 14:53 Dose: 4 mg Documented By: GABRIEL Phenobarbital (Phenobarbital 65 Mg/Ml Vial) 260 mg IV NOW ONE Stop: 10/25/22 11:49 Last Admin: 10/25/22 12:08 Dose: 260 mg Documented By: GABRIEL Phenobarbital (Phenobarbital 65 Mg/Ml Vial) 130 mg IV NOW ONE Stop: 10/25/22 20:30 Last Admin: 10/25/22 20:37 Dose: 130 mg Documented By: IRENA Phenobarbital (Phenobarbital 65 Mg/Ml Vial) 130 mg IV NOW ONE Stop: 10/25/22 23:09 Last Admin: 10/25/22 23:25 Dose: 130 mg Documented By: IRENA Vital Signs Vital signs: Vital Signs - 8 hr 10/26/22 00:00 10/26/22 00:30 10/26/22 01:06 Pulse Rate 100 H 103 H 106 H Respiratory Rate 21 20 23 Blood Pressure Pulse Oximetry 95 95 95 Oxygen Delivery Method Oxygen Flow Rate 10/26/22 01:07 10/26/22 01:07 10/26/22 01:30 Pulse Rate 101 H Respiratory Rate 15 Blood Pressure 144/83 H 136/82 Pulse Oximetry 96 Oxygen Delivery Method Oxygen Flow Rate 10/26/22 01:30 10/26/22 02:00 10/26/22 02:30 Pulse Rate 93 H 93 H Respiratory Rate 18 18 Blood Pressure 139/88 129/86 Pulse Oximetry 96 94 Oxygen Delivery Method Oxygen Flow Rate 10/26/22 02:30 10/26/22 03:00 10/26/22 03:00 Pulse Rate 97 H 85 Respiratory Rate 18 26 H Blood Pressure 134/84 Pulse Oximetry 94 94 Oxygen Delivery Method Oxygen Flow Rate 10/26/22 03:30 10/26/22 03:30 10/26/22 04:00 Pulse Rate 101 H Respiratory Rate 19 Blood Pressure 136/88 141/85 H Pulse Oximetry 96 Oxygen Delivery Method Oxygen Flow Rate 10/26/22 04:00 10/26/22 04:30 10/26/22 04:30 Pulse Rate 101 H 105 H Respiratory Rate 17 15 Blood Pressure 146/89 H Pulse Oximetry 95 95 Oxygen Delivery Method Oxygen Flow Rate 10/26/22 05:00 10/26/22 05:00 10/26/22 05:30 Pulse Rate 94 H Respiratory Rate 18 Blood Pressure 145/85 H 138/86 Pulse Oximetry 95 Oxygen Delivery Method Oxygen Flow Rate 10/26/22 05:30 10/26/22 06:00 10/26/22 06:00 Pulse Rate 93 H 98 H Respiratory Rate 20 23 Blood Pressure 139/83 Pulse Oximetry 96 93 Oxygen Delivery Method Oxygen Flow Rate 10/26/22 06:30 10/26/22 06:30 10/26/22 07:00 Pulse Rate 112 H Respiratory Rate Blood Pressure 121/68 152/85 H Pulse Oximetry 97 Oxygen Delivery Method Oxygen Flow Rate 10/26/22 07:00 10/26/22 07:30 10/26/22 07:30 Pulse Rate 104 H 108 H Respiratory Rate 19 20 Blood Pressure 142/85 H Pulse Oximetry 96 97 Oxygen Delivery Method Nasal Cannula Oxygen Flow Rate 2 [facility] - Psych <Hossein Ambrose PA-C - Last Filed: 10/25/22 20:25> Lab Data 10/25/22 11:37 10/25/22 11:37 Labs: Lab Results 10/25/22 10/25/22 10/25/22 Range/Units 11:32 11:35 11:35 WBC (4.5-11.0) X10^3/uL RBC (4.0-5.2) X10^6/uL Hgb (12.0-16.0) g/dL Hct (36-46) % MCV (80-100) fL MCH (26-34) PG MCHC (30-36) % RDW (11.6-14.8) % Plt Count (150-400) X10^3/uL Neut % (Auto) (50-75) % Lymph % (Auto) (25-40) % [place] % (Auto) (3-14) % Eos % (Auto) (2-4) % Baso % (Auto) (0-2) % Neut # (Auto) (7544-0122) /uL Lymph # (Auto) (2854-8969) /uL [place] # (Auto) (0-900) /uL Eos # (Auto) (0-450) /uL Baso # (Auto) (0-100) /uL Sodium (137-145) mmol/L Potassium (3.4-5.1) mmol/L Chloride (98-107) mmol/L Carbon Dioxide (22-32) mmol/L BUN (7-17) mg/dL Creatinine (0.52-1.04) mg/dL Estimated GFR (>60) mL/min BUN/Creatinine Ratio (6-22) Glucose (70-100) mg/dL Calcium (8.4-10.2) mg/dL Total Bilirubin (0.2-1.3) mg/dL AST (14-36) IU/L ALT (<35) IU/L Alkaline Phosphatase (38-126) U/L Total Protein (6.3-8.2) g/dL Albumin (3.5-5.0) g/dL Globulin (1.7-4.1) g/dL Albumin/Globulin Ratio (1.0-2.8) Lipase (23-300) U/L Serum , Qual (Negative) Urine Color Yellow Urine Appearance Sl cloudy Urine pH 6.0 (4.5-8.0) Ur Specific [place] 1.020 (1.000-1.035) Urine Protein Trace H (Negative) Urine Glucose (UA) Negative (Negative) g/dL Urine Ketones Negative (NEGATIVE) Urine Occult Blood 3+ H (Negative) Urine Nitrate Negative (Negative) Urine Bilirubin 2+ H (NEGATIVE) Ur Bilirubin Confirm Positive H (Negative) Urine Urobilinogen 1.0 (0.2) E.U./dL Ur Leukocyte Esterase Negative (NEGATIVE) Urine RBC 5-10/hpf H 5-10/hpf H (0-5/HPF) Urine WBC 0-1/hpf None seen (0-5/HPF) Ur Squamous Epith Cells 5-10 /hpf H 5-10 /hpf H (0-5/HPF) Urine Bacteria None seen None seen (None) Ur Culture Indicated? Cult not indicated Cult not indicated Salicylates (<20) mg/dL U Opiates 300ng/mL cut Negative (Negative) Ur Oxycodone Screen Negative (Negative) Urine Methadone Screen Negative (Negative) Acetaminophen (10-30) ug/mL Ur Barbiturates Screen Negative (Negative) U Tricyclic Antidepress Negative (Negative) Ur Phencyclidine Scrn Negative (Negative) Ur Amphetamines Screen Negative (Negative) U Methamphetamines Scrn Negative (Negative) Ur MDMA Scrn (Ecstasy) Negative (Negative) U Benzodiazepines Scrn Negative (Negative) Urine Cocaine Screen Negative (Negative) U Marijuana (THC) Screen Negative (Negative) Ethyl Alcohol ( - 10) mg/dL Chlamy pneumoniae PCR (Not Detect) Adenovirus (PCR) (Not Detect) B. pertussis DNA (PCR) (Not Detecte) B.parapertussis DNA PCR (Not Detecte) Coronavirus OC43 (PCR) (Not Detect) Coronavirus HKU1 (PCR) (Not Detect) Coronavirus 229E (PCR) (Not Detect) SARS-CoV-2 (PCR) (Negative) Coronavirus NL63 (PCR) (Not Detect) Human Metapneumovir PCR (Not Detect) Influenza Type A (PCR) (Not Detect) Influenza Type B (PCR) (Not Detect) M. pneumoniae (PCR) (Not Detect) Parainfluenza 1 (PCR) (Not Detect) Parainfluenza 2 (PCR) (Not Detect) Parainfluenza 3 (PCR) (Not Detect) Parainfluenza 4 (PCR) (Not Detect) RSV (PCR) (Not Detect) Entero/Rhino (PCR) (Not Detect) 10/25/22 10/25/22 10/25/22 Range/Units 11:37 11:37 11:37 WBC 4.8 (4.5-11.0) X10^3/uL RBC 4.56 (4.0-5.2) X10^6/uL Hgb 12.1 (12.0-16.0) g/dL Hct 36.5 (36-46) % MCV 80.1 (80-100) fL MCH 26.5 (26-34) PG MCHC 33.0 (30-36) % RDW 16.0 H (11.6-14.8) % Plt Count 48 L (150-400) X10^3/uL Neut % (Auto) 78.4 H (50-75) % Lymph % (Auto) 17.1 L (25-40) % [place] % (Auto) 3.2 (3-14) % Eos % (Auto) 0.6 L (2-4) % Baso % (Auto) 0.7 (0-2) % Neut # (Auto) 3800 (0843-2818) /uL Lymph # (Auto) 800 L (8632-6442) /uL [place] # (Auto) 200 (0-900) /uL Eos # (Auto) 0 (0-450) /uL Baso # (Auto) 0 (0-100) /uL Sodium 137 (137-145) mmol/L Potassium 3.5 (3.4-5.1) mmol/L Chloride 102 (98-107) mmol/L Carbon Dioxide 21 L (22-32) mmol/L BUN 10 (7-17) mg/dL Creatinine 0.48 L (0.52-1.04) mg/dL Estimated GFR > 60 (>60) mL/min BUN/Creatinine Ratio 20.8 (6-22) Glucose 123 H (70-100) mg/dL Calcium 7.9 L (8.4-10.2) mg/dL Total Bilirubin 4.0 H (0.2-1.3) mg/dL AST 605 H (14-36) IU/L ALT 239 H (<35) IU/L Alkaline Phosphatase 173 H (38-126) U/L Total Protein 7.0 (6.3-8.2) g/dL Albumin 3.8 (3.5-5.0) g/dL Globulin 3.2 (1.7-4.1) g/dL Albumin/Globulin Ratio 1.2 (1.0-2.8) Lipase 269 (23-300) U/L Serum , Qual Negative (Negative) Urine Color Urine Appearance Urine pH (4.5-8.0) Ur Specific [place] (1.000-1.035) Urine Protein (Negative) Urine Glucose (UA) (Negative) g/dL Urine Ketones (NEGATIVE) Urine Occult Blood (Negative) Urine Nitrate (Negative) Urine Bilirubin (NEGATIVE) Ur Bilirubin Confirm (Negative) Urine Urobilinogen (0.2) E.U./dL Ur Leukocyte Esterase (NEGATIVE) Urine RBC (0-5/HPF) Urine WBC (0-5/HPF) Ur Squamous Epith Cells (0-5/HPF) Urine Bacteria (None) Ur Culture Indicated? Salicylates (<20) mg/dL U Opiates 300ng/mL cut (Negative) Ur Oxycodone Screen (Negative) Urine Methadone Screen (Negative) Acetaminophen < 10 (10-30) ug/mL Ur Barbiturates Screen (Negative) U Tricyclic Antidepress (Negative) Ur Phencyclidine Scrn (Negative) Ur Amphetamines Screen (Negative) U Methamphetamines Scrn (Negative) Ur MDMA Scrn (Ecstasy) (Negative) U Benzodiazepines Scrn (Negative) Urine Cocaine Screen (Negative) U Marijuana (THC) Screen (Negative) Ethyl Alcohol 271 H ( - 10) mg/dL Chlamy pneumoniae PCR (Not Detect) Adenovirus (PCR) (Not Detect) B. pertussis DNA (PCR) (Not Detecte) B.parapertussis DNA PCR (Not Detecte) Coronavirus OC43 (PCR) (Not Detect) Coronavirus HKU1 (PCR) (Not Detect) Coronavirus 229E (PCR) (Not Detect) SARS-CoV-2 (PCR) (Negative) Coronavirus NL63 (PCR) (Not Detect) Human Metapneumovir PCR (Not Detect) Influenza Type A (PCR) (Not Detect) Influenza Type B (PCR) (Not Detect) M. pneumoniae (PCR) (Not Detect) Parainfluenza 1 (PCR) (Not Detect) Parainfluenza 2 (PCR) (Not Detect) Parainfluenza 3 (PCR) (Not Detect) Parainfluenza 4 (PCR) (Not Detect) RSV (PCR) (Not Detect) Entero/Rhino (PCR) (Not Detect) 10/25/22 10/25/22 10/25/22 Range/Units 11:37 11:58 14:40 WBC (4.5-11.0) X10^3/uL RBC (4.0-5.2) X10^6/uL Hgb (12.0-16.0) g/dL Hct (36-46) % MCV (80-100) fL MCH (26-34) PG MCHC (30-36) % RDW (11.6-14.8) % Plt Count (150-400) X10^3/uL Neut % (Auto) (50-75) % Lymph % (Auto) (25-40) % [place] % (Auto) (3-14) % Eos % (Auto) (2-4) % Baso % (Auto) (0-2) % Neut # (Auto) (3221-3001) /uL Lymph # (Auto) (6009-3853) /uL [place] # (Auto) (0-900) /uL Eos # (Auto) (0-450) /uL Baso # (Auto) (0-100) /uL Sodium (137-145) mmol/L Potassium (3.4-5.1) mmol/L Chloride (98-107) mmol/L Carbon Dioxide (22-32) mmol/L BUN (7-17) mg/dL Creatinine (0.52-1.04) mg/dL Estimated GFR (>60) mL/min BUN/Creatinine Ratio (6-22) Glucose (70-100) mg/dL Calcium (8.4-10.2) mg/dL Total Bilirubin (0.2-1.3) mg/dL AST (14-36) IU/L ALT (<35) IU/L Alkaline Phosphatase (38-126) U/L Total Protein (6.3-8.2) g/dL Albumin (3.5-5.0) g/dL Globulin (1.7-4.1) g/dL Albumin/Globulin Ratio (1.0-2.8) Lipase (23-300) U/L Serum , Qual (Negative) Urine Color Urine Appearance Urine pH (4.5-8.0) Ur Specific [place] (1.000-1.035) Urine Protein (Negative) Urine Glucose (UA) (Negative) g/dL Urine Ketones (NEGATIVE) Urine Occult Blood (Negative) Urine Nitrate (Negative) Urine Bilirubin (NEGATIVE) Ur Bilirubin Confirm (Negative) Urine Urobilinogen (0.2) E.U./dL Ur Leukocyte Esterase (NEGATIVE) Urine RBC (0-5/HPF) Urine WBC (0-5/HPF) Ur Squamous Epith Cells (0-5/HPF) Urine Bacteria (None) Ur Culture Indicated? Salicylates < 1.0 (<20) mg/dL U Opiates 300ng/mL cut (Negative) Ur Oxycodone Screen (Negative) Urine Methadone Screen (Negative) Acetaminophen (10-30) ug/mL Ur Barbiturates Screen (Negative) U Tricyclic Antidepress (Negative) Ur Phencyclidine Scrn (Negative) Ur Amphetamines Screen (Negative) U Methamphetamines Scrn (Negative) Ur MDMA Scrn (Ecstasy) (Negative) U Benzodiazepines Scrn (Negative) Urine Cocaine Screen (Negative) U Marijuana (THC) Screen (Negative) Ethyl Alcohol ( - 10) mg/dL Chlamy pneumoniae PCR Not detected (Not Detect) Adenovirus (PCR) Not detected (Not Detect) B. pertussis DNA (PCR) Not detected (Not Detecte) B.parapertussis DNA PCR Not detected (Not Detecte) Coronavirus OC43 (PCR) Not detected (Not Detect) Coronavirus HKU1 (PCR) Not detected (Not Detect) Coronavirus 229E (PCR) Not detected (Not Detect) SARS-CoV-2 (PCR) Negative Not detected (Negative) Coronavirus NL63 (PCR) Not detected (Not Detect) Human Metapneumovir PCR Not detected (Not Detect) Influenza Type A (PCR) Not detected (Not Detect) Influenza Type B (PCR) Not detected (Not Detect) M. pneumoniae (PCR) Not detected (Not Detect) Parainfluenza 1 (PCR) Not detected (Not Detect) Parainfluenza 2 (PCR) Not detected (Not Detect) Parainfluenza 3 (PCR) Not detected (Not Detect) Parainfluenza 4 (PCR) Not detected (Not Detect) RSV (PCR) Not detected (Not Detect) Entero/Rhino (PCR) Not detected (Not Detect) 10/25/22 Range/Units 20:25 WBC (4.5-11.0) X10^3/uL RBC (4.0-5.2) X10^6/uL Hgb (12.0-16.0) g/dL Hct (36-46) % MCV (80-100) fL MCH (26-34) PG MCHC (30-36) % RDW (11.6-14.8) % Plt Count (150-400) X10^3/uL Neut % (Auto) (50-75) % Lymph % (Auto) (25-40) % [place] % (Auto) (3-14) % Eos % (Auto) (2-4) % Baso % (Auto) (0-2) % Neut # (Auto) (7826-6968) /uL Lymph # (Auto) (1420-1435) /uL [place] # (Auto) (0-900) /uL Eos # (Auto) (0-450) /uL Baso # (Auto) (0-100) /uL Sodium (137-145) mmol/L Potassium (3.4-5.1) mmol/L Chloride (98-107) mmol/L Carbon Dioxide (22-32) mmol/L BUN (7-17) mg/dL Creatinine (0.52-1.04) mg/dL Estimated GFR (>60) mL/min BUN/Creatinine Ratio (6-22) Glucose (70-100) mg/dL Calcium (8.4-10.2) mg/dL Total Bilirubin (0.2-1.3) mg/dL AST (14-36) IU/L ALT (<35) IU/L Alkaline Phosphatase (38-126) U/L Total Protein (6.3-8.2) g/dL Albumin (3.5-5.0) g/dL Globulin (1.7-4.1) g/dL Albumin/Globulin Ratio (1.0-2.8) Lipase (23-300) U/L Serum , Qual (Negative) Urine Color Urine Appearance Urine pH (4.5-8.0) Ur Specific [place] (1.000-1.035) Urine Protein (Negative) Urine Glucose (UA) (Negative) g/dL Urine Ketones (NEGATIVE) Urine Occult Blood (Negative) Urine Nitrate (Negative) Urine Bilirubin (NEGATIVE) Ur Bilirubin Confirm (Negative) Urine Urobilinogen (0.2) E.U./dL Ur Leukocyte Esterase (NEGATIVE) Urine RBC (0-5/HPF) Urine WBC (0-5/HPF) Ur Squamous Epith Cells (0-5/HPF) Urine Bacteria (None) Ur Culture Indicated? Salicylates (<20) mg/dL U Opiates 300ng/mL cut (Negative) Ur Oxycodone Screen (Negative) Urine Methadone Screen (Negative) Acetaminophen (10-30) ug/mL Ur Barbiturates Screen (Negative) U Tricyclic Antidepress (Negative) Ur Phencyclidine Scrn (Negative) Ur Amphetamines Screen (Negative) U Methamphetamines Scrn (Negative) Ur MDMA Scrn (Ecstasy) (Negative) U Benzodiazepines Scrn (Negative) Urine Cocaine Screen (Negative) U Marijuana (THC) Screen (Negative) Ethyl Alcohol 147 H ( - 10) mg/dL Chlamy pneumoniae PCR (Not Detect) Adenovirus (PCR) (Not Detect) B. pertussis DNA (PCR) (Not Detecte) B.parapertussis DNA PCR (Not Detecte) Coronavirus OC43 (PCR) (Not Detect) Coronavirus HKU1 (PCR) (Not Detect) Coronavirus 229E (PCR) (Not Detect) SARS-CoV-2 (PCR) (Negative) Coronavirus NL63 (PCR) (Not Detect) Human Metapneumovir PCR (Not Detect) Influenza Type A (PCR) (Not Detect) Influenza Type B (PCR) (Not Detect) M. pneumoniae (PCR) (Not Detect) Parainfluenza 1 (PCR) (Not Detect) Parainfluenza 2 (PCR) (Not Detect) Parainfluenza 3 (PCR) (Not Detect) Parainfluenza 4 (PCR) (Not Detect) RSV (PCR) (Not Detect) Entero/Rhino (PCR) (Not Detect) Point of Care Testing Test Results Negative Urine Dip Bedside Urine Glucose Negative Bedside Urine Bilirubin - Negative Bedside Urine Ketone - Negative Urine Specific [place] 1.015 Bedside Urine Occult Blood +++ Bedside Urine pH 5.5 Bedside Urine Protein - Negative Bedside Urine Urobilinogen - Negative Bedside Urine Nitrite - Negative Bedside Urine Leukocytes - Negative Esterase Imaging Data US - abdomen: Radiologist's Impression: [address] [address] Ultrasound Report Signed Patient: Kaitlin Chase MR#: [id number] : 1990 Acct:[id number] Age/Sex: 32 / F Date of Service: 10/25/22 Loc: ED Accession Number: [id number] ?? Procedure: US abdomen limited Ordering Provider: Hossein Ambrose P.A-C PROCEDURE:? US ABDOMEN LIMITED ? INDICATIONS:? Elevated LFTs/bili ? TECHNIQUE:? Real-time scanning was performed of the abdominal and retroperitoneal organs, with image documentation.? ? COMPARISON:? [facility], , US ABDOMEN LIMITED, 06/08/2022, 19:10. ? FINDINGS:? ? Liver:? Increased liver echogenicity with posterior attenuation.? Questionable nodular contour. ? Gallbladder:? Diffusely thickened gallbladder wall, with wall striation.? Multiple mobile gallstones present.? Negative sonographic Delgado sign. ? Biliary ducts:? Not well visualized. ? Pancreas:? Visualized portions of the pancreas are sonographically normal.? ? Miscellaneous:? No free abdominal fluid.? ? ? IMPRESSION:? Diffuse gallbladder wall thickening and wall striation.? Gallstones are present but there is a negative sonographic Delgado sign.? Wall thickening could be due to underlying liver disease versus acute cholecystitis.? Consider HIDA scan if there remains a high clinical concern. Severe hepatic steatosis.? Questionable nodular contour may indicate cirrhosis. ? Dictated by: Darron King M.D. on 10/25/2022 at 13:06 ? ? Approved by: Darron King M.D. on 10/25/2022 at 13:08 ? MDM Narrative Medical decision making narrative: MDM * differential diagnosis includes but not limited to acute alcohol withdrawal, alcohol intoxication, anxiety * Prior records reviewed: Patient was last seen here year ago due to alcohol abuse. Daily drinker about a bottle of vodka a day instructed to presents to the emergency department due to elevated LFTs as well as a bilirubin of 3. Patient was eventually hospitalized. She would ultrasound which showed marked hepatomegaly with severe hepatic steatosis and cholelithiasis. Was pancytopenic at that time. Per Hematology this is likely due to marrow suppression in the setting of alcohol use. Patient declined alcohol cessation resources. Recommended she follow up with the primary care provider to follow up on her pancytopenia. * My lab interpretation: No leukocytosis. Thrombocytopenia which appears chronic for the patient. Elevated liver enzymes as well as alkaline phosphatase. Suspect due to the chronic alcohol use. * My imaging interpretation: Right upper quadrant ultrasound shows diffuse gallbladder wall thickening wall ulceration. Gallstones present. There was wall thickening which on the report says could be due to liver disease versus acute cholecystitis. Patient has no right upper quadrant tenderness to palpation, no white count, and no vomiting, low concern for acute cholecystitis. * Clinical Decision Rules/Scores evaluated: None * Independent discussions with: None ED Course: This is a 32-year-old female presents emergency department due to SI as well as concerns of alcohol withdrawal. At my time of seeing the patient she would not did appear to be acutely withdrawing as she just consumed alcohol a few hours prior to me seeing her. She was very mildly tremulous on exam but suspect due to increased anxiety. Patient also describes having possible visual hallucinations that may benefit from further evaluation. No medical office receptionist available to see the patient today during my shift due to staffing availability. Patient was given phenobarbital as well as Ativan to treat possible alcohol withdrawal. Lab work was concerning for elevated LFTs and alk- phos although this appears somewhat chronic for the patient. Likely suspect secondary to the chronic alcohol use. Ultrasound did discuss possible concern of acute cholecystitis although patient is not have any right upper quadrant tenderness, vomiting, or leukocytosis. We will repeat and ethyl alcohol at 8:00 p.m. to see if below the 0.08 to assess if the patient is still continuing with her suicidal ideations. Patient was discussed with my attending physician, Dr. Lopez who assumed care at end of my shift. Shared Decision Making: Discussed plan with patient who is comfortable with the plan. Social Considerations: None Disposition: [ ] <Brooklyn Lopez, DO - Last Filed: 10/26/22 07:41> Lab Data Labs: Lab Results 10/25/22 10/25/22 10/25/22 Range/Units 11:32 11:35 11:35 WBC (4.5-11.0) X10^3/uL RBC (4.0-5.2) X10^6/uL Hgb (12.0-16.0) g/dL Hct (36-46) % MCV (80-100) fL MCH (26-34) PG MCHC (30-36) % RDW (11.6-14.8) % Plt Count (150-400) X10^3/uL Neut % (Auto) (50-75) % Lymph % (Auto) (25-40) % [place] % (Auto) (3-14) % Eos % (Auto) (2-4) % Baso % (Auto) (0-2) % Neut # (Auto) (9435-4088) /uL Lymph # (Auto) (4058-8344) /uL [place] # (Auto) (0-900) /uL Eos # (Auto) (0-450) /uL Baso # (Auto) (0-100) /uL Sodium (137-145) mmol/L Potassium (3.4-5.1) mmol/L Chloride (98-107) mmol/L Carbon Dioxide (22-32) mmol/L BUN (7-17) mg/dL Creatinine (0.52-1.04) mg/dL Estimated GFR (>60) mL/min BUN/Creatinine Ratio (6-22) Glucose (70-100) mg/dL Calcium (8.4-10.2) mg/dL Total Bilirubin (0.2-1.3) mg/dL AST (14-36) IU/L ALT (<35) IU/L Alkaline Phosphatase (38-126) U/L Total Protein (6.3-8.2) g/dL Albumin (3.5-5.0) g/dL Globulin (1.7-4.1) g/dL Albumin/Globulin Ratio (1.0-2.8) Lipase (23-300) U/L Serum , Qual (Negative) Urine Color Yellow Urine Appearance Sl cloudy Urine pH 6.0 (4.5-8.0) Ur Specific [place] 1.020 (1.000-1.035) Urine Protein Trace H (Negative) Urine Glucose (UA) Negative (Negative) g/dL Urine Ketones Negative (NEGATIVE) Urine Occult Blood 3+ H (Negative) Urine Nitrate Negative (Negative) Urine Bilirubin 2+ H (NEGATIVE) Ur Bilirubin Confirm Positive H (Negative) Urine Urobilinogen 1.0 (0.2) E.U./dL Ur Leukocyte Esterase Negative (NEGATIVE) Urine RBC 5-10/hpf H 5-10/hpf H (0-5/HPF) Urine WBC 0-1/hpf None seen (0-5/HPF) Ur Squamous Epith Cells 5-10 /hpf H 5-10 /hpf H (0-5/HPF) Urine Bacteria None seen None seen (None) Ur Culture Indicated? Cult not indicated Cult not indicated Salicylates (<20) mg/dL U Opiates 300ng/mL cut Negative (Negative) Ur Oxycodone Screen Negative (Negative) Urine Methadone Screen Negative (Negative) Acetaminophen (10-30) ug/mL Ur Barbiturates Screen Negative (Negative) U Tricyclic Antidepress Negative (Negative) Ur Phencyclidine Scrn Negative (Negative) Ur Amphetamines Screen Negative (Negative) U Methamphetamines Scrn Negative (Negative) Ur MDMA Scrn (Ecstasy) Negative (Negative) U Benzodiazepines Scrn Negative (Negative) Urine Cocaine Screen Negative (Negative) U Marijuana (THC) Screen Negative (Negative) Ethyl Alcohol ( - 10) mg/dL Chlamy pneumoniae PCR (Not Detect) Adenovirus (PCR) (Not Detect) B. pertussis DNA (PCR) (Not Detecte) B.parapertussis DNA PCR (Not Detecte) Coronavirus OC43 (PCR) (Not Detect) Coronavirus HKU1 (PCR) (Not Detect) Coronavirus 229E (PCR) (Not Detect) SARS-CoV-2 (PCR) (Negative) Coronavirus NL63 (PCR) (Not Detect) Human Metapneumovir PCR (Not Detect) Influenza Type A (PCR) (Not Detect) Influenza Type B (PCR) (Not Detect) M. pneumoniae (PCR) (Not Detect) Parainfluenza 1 (PCR) (Not Detect) Parainfluenza 2 (PCR) (Not Detect) Parainfluenza 3 (PCR) (Not Detect) Parainfluenza 4 (PCR) (Not Detect) RSV (PCR) (Not Detect) Entero/Rhino (PCR) (Not Detect) 10/25/22 10/25/22 10/25/22 Range/Units 11:37 11:37 11:37 WBC 4.8 (4.5-11.0) X10^3/uL RBC 4.56 (4.0-5.2) X10^6/uL Hgb 12.1 (12.0-16.0) g/dL Hct 36.5 (36-46) % MCV 80.1 (80-100) fL MCH 26.5 (26-34) PG MCHC 33.0 (30-36) % RDW 16.0 H (11.6-14.8) % Plt Count 48 L (150-400) X10^3/uL Neut % (Auto) 78.4 H (50-75) % Lymph % (Auto) 17.1 L (25-40) % [place] % (Auto) 3.2 (3-14) % Eos % (Auto) 0.6 L (2-4) % Baso % (Auto) 0.7 (0-2) % Neut # (Auto) 3800 (4988-9044) /uL Lymph # (Auto) 800 L (3623-8994) /uL [place] # (Auto) 200 (0-900) /uL Eos # (Auto) 0 (0-450) /uL Baso # (Auto) 0 (0-100) /uL Sodium 137 (137-145) mmol/L Potassium 3.5 (3.4-5.1) mmol/L Chloride 102 (98-107) mmol/L Carbon Dioxide 21 L (22-32) mmol/L BUN 10 (7-17) mg/dL Creatinine 0.48 L (0.52-1.04) mg/dL Estimated GFR > 60 (>60) mL/min BUN/Creatinine Ratio 20.8 (6-22) Glucose 123 H (70-100) mg/dL Calcium 7.9 L (8.4-10.2) mg/dL Total Bilirubin 4.0 H (0.2-1.3) mg/dL AST 605 H (14-36) IU/L ALT 239 H (<35) IU/L Alkaline Phosphatase 173 H (38-126) U/L Total Protein 7.0 (6.3-8.2) g/dL Albumin 3.8 (3.5-5.0) g/dL Globulin 3.2 (1.7-4.1) g/dL Albumin/Globulin Ratio 1.2 (1.0-2.8) Lipase 269 (23-300) U/L Serum , Qual Negative (Negative) Urine Color Urine Appearance Urine pH (4.5-8.0) Ur Specific [place] (1.000-1.035) Urine Protein (Negative) Urine Glucose (UA) (Negative) g/dL Urine Ketones (NEGATIVE) Urine Occult Blood (Negative) Urine Nitrate (Negative) Urine Bilirubin (NEGATIVE) Ur Bilirubin Confirm (Negative) Urine Urobilinogen (0.2) E.U./dL Ur Leukocyte Esterase (NEGATIVE) Urine RBC (0-5/HPF) Urine WBC (0-5/HPF) Ur Squamous Epith Cells (0-5/HPF) Urine Bacteria (None) Ur Culture Indicated? Salicylates (<20) mg/dL U Opiates 300ng/mL cut (Negative) Ur Oxycodone Screen (Negative) Urine Methadone Screen (Negative) Acetaminophen < 10 (10-30) ug/mL Ur Barbiturates Screen (Negative) U Tricyclic Antidepress (Negative) Ur Phencyclidine Scrn (Negative) Ur Amphetamines Screen (Negative) U Methamphetamines Scrn (Negative) Ur MDMA Scrn (Ecstasy) (Negative) U Benzodiazepines Scrn (Negative) Urine Cocaine Screen (Negative) U Marijuana (THC) Screen (Negative) Ethyl Alcohol 271 H ( - 10) mg/dL Chlamy pneumoniae PCR (Not Detect) Adenovirus (PCR) (Not Detect) B. pertussis DNA (PCR) (Not Detecte) B.parapertussis DNA PCR (Not Detecte) Coronavirus OC43 (PCR) (Not Detect) Coronavirus HKU1 (PCR) (Not Detect) Coronavirus 229E (PCR) (Not Detect) SARS-CoV-2 (PCR) (Negative) Coronavirus NL63 (PCR) (Not Detect) Human Metapneumovir PCR (Not Detect) Influenza Type A (PCR) (Not Detect) Influenza Type B (PCR) (Not Detect) M. pneumoniae (PCR) (Not Detect) Parainfluenza 1 (PCR) (Not Detect) Parainfluenza 2 (PCR) (Not Detect) Parainfluenza 3 (PCR) (Not Detect) Parainfluenza 4 (PCR) (Not Detect) RSV (PCR) (Not Detect) Entero/Rhino (PCR) (Not Detect) 10/25/22 10/25/22 10/25/22 Range/Units 11:37 11:58 14:40 WBC (4.5-11.0) X10^3/uL RBC (4.0-5.2) X10^6/uL Hgb (12.0-16.0) g/dL Hct (36-46) % MCV (80-100) fL MCH (26-34) PG MCHC (30-36) % RDW (11.6-14.8) % Plt Count (150-400) X10^3/uL Neut % (Auto) (50-75) % Lymph % (Auto) (25-40) % [place] % (Auto) (3-14) % Eos % (Auto) (2-4) % Baso % (Auto) (0-2) % Neut # (Auto) (3486-2441) /uL Lymph # (Auto) (6938-1096) /uL [place] # (Auto) (0-900) /uL Eos # (Auto) (0-450) /uL Baso # (Auto) (0-100) /uL Sodium (137-145) mmol/L Potassium (3.4-5.1) mmol/L Chloride (98-107) mmol/L Carbon Dioxide (22-32) mmol/L BUN (7-17) mg/dL Creatinine (0.52-1.04) mg/dL Estimated GFR (>60) mL/min BUN/Creatinine Ratio (6-22) Glucose (70-100) mg/dL Calcium (8.4-10.2) mg/dL Total Bilirubin (0.2-1.3) mg/dL AST (14-36) IU/L ALT (<35) IU/L Alkaline Phosphatase (38-126) U/L Total Protein (6.3-8.2) g/dL Albumin (3.5-5.0) g/dL Globulin (1.7-4.1) g/dL Albumin/Globulin Ratio (1.0-2.8) Lipase (23-300) U/L Serum , Qual (Negative) Urine Color Urine Appearance Urine pH (4.5-8.0) Ur Specific [place] (1.000-1.035) Urine Protein (Negative) Urine Glucose (UA) (Negative) g/dL Urine Ketones (NEGATIVE) Urine Occult Blood (Negative) Urine Nitrate (Negative) Urine Bilirubin (NEGATIVE) Ur Bilirubin Confirm (Negative) Urine Urobilinogen (0.2) E.U./dL Ur Leukocyte Esterase (NEGATIVE) Urine RBC (0-5/HPF) Urine WBC (0-5/HPF) Ur Squamous Epith Cells (0-5/HPF) Urine Bacteria (None) Ur Culture Indicated? Salicylates < 1.0 (<20) mg/dL U Opiates 300ng/mL cut (Negative) Ur Oxycodone Screen (Negative) Urine Methadone Screen (Negative) Acetaminophen (10-30) ug/mL Ur Barbiturates Screen (Negative) U Tricyclic Antidepress (Negative) Ur Phencyclidine Scrn (Negative) Ur Amphetamines Screen (Negative) U Methamphetamines Scrn (Negative) Ur MDMA Scrn (Ecstasy) (Negative) U Benzodiazepines Scrn (Negative) Urine Cocaine Screen (Negative) U Marijuana (THC) Screen (Negative) Ethyl Alcohol ( - 10) mg/dL Chlamy pneumoniae PCR Not detected (Not Detect) Adenovirus (PCR) Not detected (Not Detect) B. pertussis DNA (PCR) Not detected (Not Detecte) B.parapertussis DNA PCR Not detected (Not Detecte) Coronavirus OC43 (PCR) Not detected (Not Detect) Coronavirus HKU1 (PCR) Not detected (Not Detect) Coronavirus 229E (PCR) Not detected (Not Detect) SARS-CoV-2 (PCR) Negative Not detected (Negative) Coronavirus NL63 (PCR) Not detected (Not Detect) Human Metapneumovir PCR Not detected (Not Detect) Influenza Type A (PCR) Not detected (Not Detect) Influenza Type B (PCR) Not detected (Not Detect) M. pneumoniae (PCR) Not detected (Not Detect) Parainfluenza 1 (PCR) Not detected (Not Detect) Parainfluenza 2 (PCR) Not detected (Not Detect) Parainfluenza 3 (PCR) Not detected (Not Detect) Parainfluenza 4 (PCR) Not detected (Not Detect) RSV (PCR) Not detected (Not Detect) Entero/Rhino (PCR) Not detected (Not Detect) 10/25/22 Range/Units 20:25 WBC (4.5-11.0) X10^3/uL RBC (4.0-5.2) X10^6/uL Hgb (12.0-16.0) g/dL Hct (36-46) % MCV (80-100) fL MCH (26-34) PG MCHC (30-36) % RDW (11.6-14.8) % Plt Count (150-400) X10^3/uL Neut % (Auto) (50-75) % Lymph % (Auto) (25-40) % [place] % (Auto) (3-14) % Eos % (Auto) (2-4) % Baso % (Auto) (0-2) % Neut # (Auto) (1406-5547) /uL Lymph # (Auto) (4782-9190) /uL [place] # (Auto) (0-900) /uL Eos # (Auto) (0-450) /uL Baso # (Auto) (0-100) /uL Sodium (137-145) mmol/L Potassium (3.4-5.1) mmol/L Chloride (98-107) mmol/L Carbon Dioxide (22-32) mmol/L BUN (7-17) mg/dL Creatinine (0.52-1.04) mg/dL Estimated GFR (>60) mL/min BUN/Creatinine Ratio (6-22) Glucose (70-100) mg/dL Calcium (8.4-10.2) mg/dL Total Bilirubin (0.2-1.3) mg/dL AST (14-36) IU/L ALT (<35) IU/L Alkaline Phosphatase (38-126) U/L Total Protein (6.3-8.2) g/dL Albumin (3.5-5.0) g/dL Globulin (1.7-4.1) g/dL Albumin/Globulin Ratio (1.0-2.8) Lipase (23-300) U/L Serum , Qual (Negative) Urine Color Urine Appearance Urine pH (4.5-8.0) Ur Specific [place] (1.000-1.035) Urine Protein (Negative) Urine Glucose (UA) (Negative) g/dL Urine Ketones (NEGATIVE) Urine Occult Blood (Negative) Urine Nitrate (Negative) Urine Bilirubin (NEGATIVE) Ur Bilirubin Confirm (Negative) Urine Urobilinogen (0.2) E.U./dL Ur Leukocyte Esterase (NEGATIVE) Urine RBC (0-5/HPF) Urine WBC (0-5/HPF) Ur Squamous Epith Cells (0-5/HPF) Urine Bacteria (None) Ur Culture Indicated? Salicylates (<20) mg/dL U Opiates 300ng/mL cut (Negative) Ur Oxycodone Screen (Negative) Urine Methadone Screen (Negative) Acetaminophen (10-30) ug/mL Ur Barbiturates Screen (Negative) U Tricyclic Antidepress (Negative) Ur Phencyclidine Scrn (Negative) Ur Amphetamines Screen (Negative) U Methamphetamines Scrn (Negative) Ur MDMA Scrn (Ecstasy) (Negative) U Benzodiazepines Scrn (Negative) Urine Cocaine Screen (Negative) U Marijuana (THC) Screen (Negative) Ethyl Alcohol 147 H ( - 10) mg/dL Chlamy pneumoniae PCR (Not Detect) Adenovirus (PCR) (Not Detect) B. pertussis DNA (PCR) (Not Detecte) B.parapertussis DNA PCR (Not Detecte) Coronavirus OC43 (PCR) (Not Detect) Coronavirus HKU1 (PCR) (Not Detect) Coronavirus 229E (PCR) (Not Detect) SARS-CoV-2 (PCR) (Negative) Coronavirus NL63 (PCR) (Not Detect) Human Metapneumovir PCR (Not Detect) Influenza Type A (PCR) (Not Detect) Influenza Type B (PCR) (Not Detect) M. pneumoniae (PCR) (Not Detect) Parainfluenza 1 (PCR) (Not Detect) Parainfluenza 2 (PCR) (Not Detect) Parainfluenza 3 (PCR) (Not Detect) Parainfluenza 4 (PCR) (Not Detect) RSV (PCR) (Not Detect) Entero/Rhino (PCR) (Not Detect) Point of Care Testing Test Results Negative Urine Dip Bedside Urine Glucose Negative Bedside Urine Bilirubin - Negative Bedside Urine Ketone - Negative Urine Specific [place] 1.015 Bedside Urine Occult Blood +++ Bedside Urine pH 5.5 Bedside Urine Protein - Negative Bedside Urine Urobilinogen - Negative Bedside Urine Nitrite - Negative Bedside Urine Leukocytes - Negative Esterase MDM Narrative Medical decision making narrative: MDM * differential diagnosis includes but not limited to acute alcohol withdrawal, alcohol intoxication, anxiety * Prior records reviewed: Patient was last seen here year ago due to alcohol abuse. Daily drinker about a bottle of vodka a day instructed to presents to the emergency department due to elevated LFTs as well as a bilirubin of 3. Patient was eventually hospitalized. She would ultrasound which showed marked hepatomegaly with severe hepatic steatosis and cholelithiasis. Was pancytopenic at that time. Per Hematology this is likely due to marrow suppression in the setting of alcohol use. Patient declined alcohol cessation resources. Recommended she follow up with the primary care provider to follow up on her pancytopenia. * My lab interpretation: No leukocytosis. Thrombocytopenia which appears chronic for the patient. Jazlyn vated liver enzymes as well as alkaline phosphatase. Suspect due to the chronic alcohol use. * My imaging interpretation: Right upper quadrant ultrasound shows diffuse gallbladder wall thickening wall ulceration. Gallstones present. There was wall thickening which on the report says could be due to liver disease versus acute cholecystitis. Patient has no right upper quadrant tenderness to palp ation, no white count, and no vomiting, low concern for acute cholecystitis. * Clinical Decision Rules/Scores evaluated: None * Independent discussions with: None ED Course: This is a 32-year-old female presents emergency department due to SI as well as concerns of alcohol withdrawal. At my time of seeing the patient she would not did appear to be acutely withdrawing as she just consumed alcohol a few hours prior to me seeing her. She was very mildly tremulous on exam but suspect due to increased anxiety. Patient also describes having possible visual hallucinations that may benefit from further evaluation. No medical office receptionist available to see the patient today during my shift due to staffing availability. Patient was given phenobarbital as well as Ativan to treat possible alcohol withdrawal. Lab work was concerning for elevated LFTs and alk- phos although this appears somewhat chronic for the patient. Likely suspect secondary to the chronic alcohol use. Ultrasound did discuss possible concern of acute cholecystitis although patient is not have any right upper quadrant tenderness, vomiting, or leukocytosis. We will repeat and ethyl alcohol at 8:00 p.m. to see if below the 0.08 to assess if the patient is still continuing with her suicidal ideations. Patient was discussed with my attending physician, Dr. Lopez who assumed care at end of my shift. Shared Decision Making: Discussed plan with patient who is comfortable with the plan. Social Considerations: None Disposition: Patient was seen and evaluated independently by. Alcohol level had dropped pa tient is no longer feeling suicidal she states she was feeling very embarrassed because she had been drinking again. She is interested in detox. Patient did receive phenobarb prior, had some persistent symptoms with CIWA and received additional doses of phenobarb and that Ativan. Overnight she is continued to improve. Patient decided to not continue to pursue detox or dual diagnosis. She is not suicidal at this time she contracts for safety. Patient is felt appropriate to leave voluntarily. Patient's is felt to be competent and appropriate to discharge home. She is not had any persistent hallucinations throughout the evening. Discharge Plan Departure Patient Disposition: Home Clinical Impression: Alcohol abuse with withdrawal Instructions: Alcohol Withdrawal Activity Restrictions/Additional Instructions: Follow-up for recheck I would recommend following up with facility that can help you with your alcohol abuse. Take Librium as prescribed. This medication can make you sleepy do not drive, perform hazardous activities or make any major decisions while taking it. Do not drink alcohol while taking this medication. Prescription sent to Please return for new or worsening symptoms, seizures, hallucinations, worsening withdrawal if you feel unsafe for have thoughts of harming or killing herself or other new or concerning changes. Prescriptions: New chlordiazepoxide HCl 25 mg capsule See Rx Instructions .ROUTE .COMPLEX Qty: 11 0RF Rx Instructions: Please take 1 tablet every 6 hours times 24 hours, 1 tablet every 8 hours times 24 hours, 1 tablet every 12 hours times 24 hours, 1 tablet q.h.s. x2 days Referrals: Silvia Kent DNP, [facility] [Primary Care Provider] - Stand Alone Forms: Patient Portal/API
[2022-10-25] MEDS: THIAMINE 100 MG in SODIUM CHLORIDE 0.9% 100 ML 404 MG IV (12:07)
[2022-10-25] MEDS: PHENobarbital 65 MG/ML VIAL 260 MG IV (12:08)
[2022-10-25 12:11] LABS: Bacteria Urine None Seen; Culture Indicated Urine Cult Not Indicated; RBC Urine 5-10/HPF (0-5/HPF); Squamous Epithelial Cell Urine 5-10 /HPF (0-5/HPF); WBC Urine 0-1/HPF (0-5/HPF)
[2022-10-25 12:12] LABS: UR Morphine/Opiate cutoff 300 Negative (Negative); Ur Creatinine Normal (Normal); Ur Specific Gravity Normal (Normal); Urine Amphetamines Negative (Negative); Urine Barbiturates Negative (Negative); Urine Benzodiazepines Negative (Negative); Urine Cocaine Negative (Negative); Urine MDMA Negative (Negative); Urine Methadone Negative (Negative); Urine Methamphetamines Negative (Negative); Urine Oxycodone Negative (Negative); Urine Phencyclidine Negative (Negative); Urine Tetrahydrocannabinol Negative (Negative); Urine Tricyclic Antidepressant Negative (Negative); Urine pH Normal (Normal)
[2022-10-25 12:12] LABS: Salicylate < 1.0 mg/dL (<20)
[2022-10-25 12:14] LABS: Acetaminophen < 10 ug/mL (10-30); Alanine Aminotransferase 239 IU/L (<35); Albumin 3.8 g/dL (3.5-5.0); Albumin Globulin Ratio 1.2 (1.0-2.8); Alkaline Phosphatase 173 U/L (38-126); Aspartate Aminotransferase 605 IU/L (14-36); BUN Creatinine Ratio 20.8 (6-22); Blood Urea Nitrogen 10 mg/dL (7-17); Calcium 7.9 mg/dL (8.4-10.2); Carbon Dioxide 21 mmol/L (22-32); Chloride 102 mmol/L (98-107); Estimated Glomerular Filt Rate > 60 mL/min (>60); Ethanol (ETOH) 271 mg/dL; Globulin 3.2 g/dL (1.7-4.1); Glucose 123 mg/dL (70-100); HEMOLYSIS 15 (0-50); Potassium 3.5 mmol/L (3.4-5.1); Sodium 137 mmol/L (137-145)
--- NOTE | 2022-10-25 12:20 | DI.US.S_ITS ---
PROCEDURE: US ABDOMEN LIMITED INDICATIONS: Elevated LFTs/bili TECHNIQUE: Real-time scanning was performed of the abdominal and retroperitoneal organs, with image documentation. COMPARISON: [facility], US, US ABDOMEN LIMITED, 06/08/2022, 19:10. FINDINGS: Liver: Increased liver echogenicity with posterior attenuation. Questionable nodular contour. Gallbladder: Diffusely thickened gallbladder wall, with wall striation. Multiple mobile gallstones present. Negative sonographic Delgado sign. Biliary ducts: Not well visualized. Pancreas: Visualized portions of the pancreas are sonographically normal. Miscellaneous: No free abdominal fluid. IMPRESSION: Diffuse gallbladder wall thickening and wall striation. Gallstones are present but there is a negative sonographic Delgado sign. Wall thickening could be due to underlying liver disease versus acute cholecystitis. Consider HIDA scan if there remains a high clinical concern. Severe hepatic steatosis. Questionable nodular contour may indicate cirrhosis. Dictated by: Darron King M.D. on 10/25/2022 at 13:06 Approved by: Darron King M.D. on 10/25/2022 at 13:08
[2022-10-25 12:24] LABS: Appearance Urine UA SL CLOUDY
[2022-10-25 12:27] LABS: Pregnancy Test Serum,Qual Negative (Negative)
[2022-10-25 12:29] LABS: Lipase 269 U/L (23-300)
[2022-10-25] MEDS: ONDANSETRON 4 MG/2 ML INJ IV ×2 (12:30→14:53)
[2022-10-25] MEDS: SODIUM CHLORIDE 0.9% 1,000 ML 1000 ML IV ×2 (12:31→21:33)
[2022-10-25 12:42] LABS: COVID19 -Nasal RAPID Negative (Negative)
[2022-10-25 12:46] LABS: Ictotest Urine Positive (Negative)
[2022-10-25 12:48] LABS: RBC Urine 5-10/HPF (0-5/HPF)
[2022-10-25 12:49] LABS: Bacteria Urine None Seen; Culture Indicated Urine Cult Not Indicated; Squamous Epithelial Cell Urine 5-10 /HPF (0-5/HPF); WBC Urine None Seen (0-5/HPF)
--- NOTE | 2022-10-25 14:12 | PC.NURSE ---
Pt is resting, eyes closed, respiratory rate regular/18.
[2022-10-25] MEDS: LORazepam 2 MG/ML INJ 1 MG IV (15:34)
[2022-10-25 17:00] LABS: Adenovirus Not Detected (Not Detect); B. parapertussis Not Detected (Not Detecte); Bordetella pertussis Not Detected (Not Detecte); Chlamydophila pneumoniae Not Detected (Not Detect); Coronavirus 229E Not Detected (Not Detect); Coronavirus HKU1 Not Detected (Not Detect); Coronavirus NL 63 Not Detected (Not Detect); Coronavirus OC43 Not Detected (Not Detect); Human Metapneumovirus Not Detected (Not Detect); Human Rhinovirus/Enterovirus Not Detected (Not Detect); Influenza A Not Detected (Not Detect); Influenza B Not Detected (Not Detect); Mycoplasma pneumoniae Not Detected (Not Detect); Parainfluenza Virus 1 Not Detected (Not Detect); Parainfluenza Virus 2 Not Detected (Not Detect); Parainfluenza Virus 3 Not Detected (Not Detect); Parainfluenza Virus 4 Not Detected (Not Detect); Respiratory Syncytial Virus Not Detected (Not Detect); SARS- CoV-2 Not Detected (Not Detecte)
--- NOTE | 2022-10-25 17:09 | PC.NURSE ---
Pt notified that her mom called to check in. Pt said she would call her. Also given underwear, pants and supplies for her cycle starting. Pt denies suicidal ideation at this time. Interested in rehab/detox once medically cleared.
[2022-10-25] MEDS: PHENobarbital 65 MG/ML VIAL 130 MG IV ×2 (20:37→23:25)
[2022-10-25 21:08] LABS: Ethanol (ETOH) 147 mg/dL
[2022-10-26] VITALS (17 sets, daily range): BP systolic 121–152; BP diastolic 68–89; PULSE 85–112; RESP 15–26; O2SAT 93–97
[2022-10-26] MEDS: LORazepam 2 MG/ML INJ 1 MG IV (01:12)
== END 2022-10-26 07:57 | disposition home or self-care (01) ==
PROVIDERS: Emergency Medicine; Physician Assistant Medical; Emergency Provider Emergency Medicine; PCP Nurse Practitioner Family
DX: F10.139 Alcohol abuse with withdrawal, unspecified (principal); Y90.6 Blood alcohol level of 120-199 mg/100 ml; R00.0 Tachycardia, unspecified; R45.851 Suicidal ideations; Z20.822 Contact with and (suspected) exposure to COVID-19
CPT/HCPCS: 36415; 76705; 80053; 80305; 80320; 80329; 81001; 81003; 81015; 81025; 83690; 84703; 85025; 87633; 87635; 96361; 96374; 96375; 96376; 99285; C9803; G0480; J2060; J2405; J2560

== ENCOUNTER → 2023-01-14 11:19 | Outpatient (CLI) | payer OTHER, MEDICAID, SELFPAY ==
[2022-06-09 00:44] VITALS: BMI 27.2
[2023-01-14 12:17] LABS: Add Manual Diff / Slide Review NO; Basophils Absolute Auto 100 /uL (0-100); Basophils Percent Auto 1.4 % (0-2); Eosinophils Absolute Auto 200 /uL (0-450); Lymphocytes Absolute Auto 1700 /uL (1100-4500); Lymphocytes Percent Auto 29.5 % (25-40); Mean Corpuscular HGB Conc 32.4 % (30-36); Mean Corpuscular Hemoglobin 26.3 PG (26-34); Monocytes Absolute Auto 300 /uL (0-900); Monocytes Percent Auto 5.4 % (3-14); Neutrophils Absolute Auto 3400 /uL (1500-7000); Neutrophils Percent Auto 60.7 % (50-75); Platelet Count 96 X10^3/uL (150-400); Red Blood Cell Count 4.19 X10^6/uL (4.0-5.2); Red Cell Distribution Width 20.3 % (11.6-14.8); White Blood Cell Count 5.6 X10^3/uL (4.5-11.0)
[2023-01-14 12:24] LABS: Alanine Aminotransferase 65 IU/L (<35); Albumin Globulin Ratio 1.4 (1.0-2.8); Alkaline Phosphatase 110 U/L (38-126); Aspartate Aminotransferase 76 IU/L (14-36); BUN Creatinine Ratio 18.2 (6-22); Bilirubin Total 0.4 mg/dL (0.2-1.3); Blood Urea Nitrogen 8 mg/dL (7-17); Calcium 8.7 mg/dL (8.4-10.2); Carbon Dioxide 22 mmol/L (22-32); Chloride 107 mmol/L (98-107); Estimated Glomerular Filt Rate > 60 mL/min (>60); Globulin 2.9 g/dL (1.7-4.1); Glucose 123 mg/dL (70-100); HEMOLYSIS < 15 (0-50); Potassium 4.1 mmol/L (3.4-5.1); Sodium 138 mmol/L (137-145); Total Protein 6.9 g/dL (6.3-8.2)
== END ==
PROVIDERS: PCP Nurse Practitioner Family; Referring Provider Nurse Practitioner Family; Visit Provider Nurse Practitioner Family
DX: R79.89 Other specified abnormal findings of blood chemistry (principal); R23.3 Spontaneous ecchymoses
CPT/HCPCS: 36415; 80053; 85025

== ENCOUNTER 2023-05-14 15:03 | Inpatient (IN) | payer OTHER, MEDICAID, SELFPAY ==
[2022-06-09 00:44] VITALS: BMI 27.2
[2023-05-14] VITALS (13 sets, daily range): BP systolic 137–150; BP diastolic 64–90; PULSE 92–113; RESP 18–35; TEMP 36.6; O2SAT 95–100; BMI 30.8
[2023-05-14] MEDS: SODIUM CHLORIDE 0.9% 1,000 ML 1000 ML IV (17:13)
[2023-05-14] MEDS: PHENobarbital 65 MG/ML VIAL 260 MG IV (17:13)
[2023-05-14] MEDS: ONDANSETRON 4 MG/2 ML INJ IV (17:13)
[2023-05-14 17:16] LABS: INR 1.5 (0.9-1.3); Prothrombin Time 16.8 SECONDS (9.4-12.5)
[2023-05-14 17:19] LABS: Ammonia (NH3) 11 umol/L (9-30)
[2023-05-14 17:20] LABS: Alanine Aminotransferase 128 IU/L (<35); Albumin 3.9 g/dL (3.5-5.0); Albumin Globulin Ratio 1.1 (1.0-2.8); Alkaline Phosphatase 201 U/L (38-126); Aspartate Aminotransferase 411 IU/L (14-36); BUN Creatinine Ratio 6.1 (6-22); Bilirubin Total 13.4 mg/dL (0.2-1.3); Blood Urea Nitrogen 3 mg/dL (7-17); Calcium 8.5 mg/dL (8.4-10.2); Carbon Dioxide 15 mmol/L (22-32); Chloride 89 mmol/L (98-107); Estimated Glomerular Filt Rate > 60 mL/min (>60); Globulin 3.4 g/dL (1.7-4.1); Glucose 123 mg/dL (70-100); Hemoglobin 11.9 g/dL (12.0-16.0); Mean Corpuscular HGB Conc 32.3 % (30-36); Mean Corpuscular Hemoglobin 26.5 PG (26-34); Platelet Count 57 X10^3/uL (150-400); Red Blood Cell Count 4.51 X10^6/uL (4.0-5.2); Red Cell Distribution Width 24.3 % (11.6-14.8); Sodium 126 mmol/L (137-145); Total Protein 7.3 g/dL (6.3-8.2); White Blood Cell Count 3.8 X10^3/uL (4.5-11.0)
[2023-05-14 17:22] LABS: Add Manual Diff / Slide Review YES
[2023-05-14 17:24] LABS: Potassium 2.7 mmol/L (3.4-5.1)
[2023-05-14 17:28] LABS: Neutrophils Absolute Manual 3040 /uL (3000-5900); Total Cells Counted 100
[2023-05-14 17:30] LABS: Anisocytosis 2+
[2023-05-14 17:31] LABS: Target Cells 2+
--- NOTE | 2023-05-14 17:44 | DI.US.S_ITS ---
PROCEDURE: US ABDOMEN LIMITED INDICATIONS: liver failure, detox TECHNIQUE: Real-time scanning was performed of the abdominal and retroperitoneal organs, with image documentation. COMPARISON: [facility], , US ABDOMEN LIMITED, 10/25/2022, 12:41. FINDINGS: Liver: Increased liver echogenicity with posterior attenuation, most consistent with moderate to severe steatosis. Focal fat sparing adjacent to the falciform ligament. Gallbladder: Diffuse gallbladder wall thickening. Small stones. No dilation. Biliary ducts: Not seen due to liver attenuation. Pancreas: Not seen due to liver attenuation Spleen: Spleen is normal in size and homogeneous in echotexture. IMPRESSION: Marked hepatic steatosis, probably early cirrhosis. Diffuse gallbladder wall thickening. Gallbladder stones present. No distension. Wall thickening is favored to represent a sequela of liver disease over acute cholecystitis. Dictated by: Darron King M.D. on 05/14/2023 at 18:48 Approved by: Darron King M.D. on 05/14/2023 at 18:49
[2023-05-14] MEDS: POTASSIUM CHLORIDE 20 MEQ TAB 40 MEQ PO (17:53)
[2023-05-14 18:05] LABS: HEMOLYSIS 23 (0-50); Lipase 194 U/L (23-300)
[2023-05-14] MEDS: POTASSIUM CHLORIDE IN WATER 10 MEQ/100 ML PIGGYBACK 100 MEQ IV ×4 (18:08→21:33)
--- NOTE | 2023-05-14 20:32 | PC.NURSE ---
Pt declined MRI for fear of financial distress. Discussed seriousness of condition as well as social work availability / resources. Verbalized understanding. [employer] consult placed.
[2023-05-14] MEDS: TRAZODONE 50 MG TABLET 100 MG PO (20:44)
[2023-05-15] VITALS (42 sets, daily range): BP systolic 120–152; BP diastolic 72–93; PULSE 99–124; RESP 16–35; TEMP 36.7–37.2; O2SAT 88–97; BMI 30.8
--- NOTE | 2023-05-15 00:19 | ED.GENADULT ---
HPI - General Adult General Chief complaint: Toxicology Problem Stated complaint: detoxing/struggling Time Seen by Provider: 05/14/23 17:43 Source: patient Mode of arrival: Ambulatory History of Present Illness HPI narrative: 32-year-old woman with a history of alcohol use disorder multiple attempts at rehab and difficulties with withdrawing. No actual seizures. She states that she had recently been in rehab since she is been out she returned to drinking and has been drinking a 5th of alcohol a day. She believes that it has been about 24 hours since her last drink but can not completely confirm that. She comes in requesting help with detox. She states she is not aware of severe liver injury nor has she had difficulties with jaundice previously. She is not describing any unusual bleeding, vomiting she does have diffuse abdominal pain, occasional diarrhea, no lower extremity edema. She is not complaining of fever, cough, palpitations or chest pain Related Data Home Medications Medication Instructions Recorded Confirmed citalopram 40 mg tablet 40 mg PO DAILY 05/14/23 05/14/23 pantoprazole 40 mg tablet,delayed 40 mg PO DAILY 05/14/23 05/14/23 release trazodone 100 mg tablet 100 mg PO ONCE PM 05/14/23 05/14/23 Allergies Allergy/AdvReac Type Severity Reaction Status Date / Time aspirin Allergy Verified 05/14/23 20:22 Review of Systems Review of Systems Narrative: Pertinent positive and negative findings as per HPI Patient History Medical History Thrombocythemia Alcohol abuse Surgical History No history of previous surgery Family History Father Depression Mother No pertinent past medical history Social History household members: friend(s) Smoking Status: Former smoker alcohol intake: current Smoking Status: Former smoker alcohol intake frequency: 3 or more drinks per day Alcohol type: hard liquor Substance Use Type: does not use Exam Initial Vital Signs Initial Vital Signs: Vital Signs Temperature 97.9 F 05/14/23 15:36 Pulse Rate 111 H 05/14/23 15:36 Respiratory Rate 20 05/14/23 15:36 Blood Pressure 150/90 H 05/14/23 15:36 Pulse Oximetry 97 05/14/23 15:36 Oxygen Delivery Method Room Air 05/14/23 15:36 General: Ill-appearing woman slightly jaundiced, tremor slightly confused requesting help HEENT: Dry mucous membranes, icteric sclera with reactive pupils, Neck: No JVD, supple Respiratory: Lungs are clear to auscultation, no wheezing no rales no rhonchi. Full and symmetrical air movement Cardiac: Tachycardia but otherwise Regular rate and rhythm no murmurs no bruits Abdomen: Soft, nontender, good bowel tones, no flank pain Skin: Moderate jaundice, scattered spider hemangiomas Neurologic: Sleepy, slight tremor tachycardic she has been dosed already with IV phenobarbital Extremities: No trauma, well perfused Psych: Tearful, frightened, fluent speech appropriate eye contact Course Orders Ordered: ED Orders 05/14/23 20:33 Consult to RECEIVING DOCK CHECKER - [employer] Team Lead Stat 05/15/23 00:45 ETOH [Ethanol (ETOH)] Stat Hepatitis Acute Panel Stat Folic Acid (Folic Acid 1 Mg Tablet) 1 mg PO DAILY [facility] Lorazepam (Lorazepam 2 Mg/Ml Inj) 0 mg IV CIWAPRN PRN; Protocol PRN Reason: Alcohol Withdrawal Multivitamins (Multivitamin 1 Tablet) 1 tab PO DAILY [facility] Naloxone HCl (Naloxone 0.4 Mg/Ml Vial) 0.2 mg IV Q2MIN PRN PRN Reason: Opiate Reversal Ondansetron HCl (Ondansetron 4 Mg Odt) 4 mg PO NOW PRN PRN Reason: Nausea And Vomiting Ondansetron HCl (Ondansetron 4 Mg/2 Ml Inj) 4 mg IV NOW PRN PRN Reason: Nausea And Vomiting Last Admin: 05/14/23 17:13 Dose: 4 mg Documented By: CAROLYN Pantoprazole Sodium (Pantoprazole 40 Mg Vial) 40 mg IV 0600 [facility] Thiamine HCl (Thiamine 100 Mg Tablet) 100 mg PO DAILY KIAN Stop: 05/18/23 09:01 Trazodone HCl (Trazodone 50 Mg Tablet) 100 mg PO BEDTIME KIAN Last Admin: 05/14/23 20:44 Dose: 100 mg Documented By: AM Discontinued Medications Sodium Chloride (Normal Saline 0.9%) 1,000 mls @ 1,000 mls/hr IV BOLUS ONE Stop: 05/14/23 16:44 Last Infusion: 05/14/23 19:00 Dose: Infused Documented By: Admin: 05/14/23 17:13 Dose: 1,000 mls/hr Documented By: CAROLYN POTASSIUM CHLORIDE IN WATER (Potassium Cl 10 Meq/100 Ml Zaria) 10 meq in 100 mls @ 100 mls/hr IV Q1H KIAN Stop: 05/14/23 21:44 Last Infusion: 05/14/23 22:40 Dose: Infused Documented By: Admin: 05/14/23 21:33 Dose: 100 mls/hr Documented By: Infusion: 05/14/23 21:31 Dose: Infused Documented By: Admin: 05/14/23 20:31 Dose: 100 mls/hr Documented By: Infusion: 05/14/23 20:21 Dose: Infused Documented By: Admin: 05/14/23 19:05 Dose: 100 mls/hr Documented By: Infusion: 05/14/23 19:05 Dose: Infused Documented By: Admin: 05/14/23 18:08 Dose: 100 mls/hr Documented By: SANDEEP Thiamine HCl 100 mg/ Sodium (Chloride) 101 mls @ 404 mls/hr IV NOW ONE Stop: 05/15/23 00:47 Last Infusion: 05/15/23 01:19 Dose: Infused Documented By: Admin: 05/15/23 01:01 Dose: 404 mls/hr Documented By: NICANOR Magnesium Sulfate (Magnesium Sulfate) 2 gm in 50 mls @ 25 mls/hr IV NOW ONE Stop: 05/15/23 02:56 Last Infusion: 05/15/23 03:13 Dose: Infused Documented By: NICANOR Co-signed By: PRAVEEN Admin: 05/15/23 01:16 Dose: 25 mls/hr Documented By: NICANOR Co-signed By: MICAELA Lorazepam (Lorazepam 2 Mg/Ml Inj) 2 mg IV NOW ONE Stop: 05/15/23 00:47 Last Admin: 05/15/23 01:00 Dose: 2 mg Documented By: NICANOR Phenobarbital (Phenobarbital 65 Mg/Ml Vial) 260 mg IV NOW ONE Stop: 05/14/23 15:46 Last Admin: 05/14/23 17:13 Dose: 260 mg Documented By: CAROLYN Potassium Chloride (Potassium Chloride 20 Meq Tab) 40 meq PO NOW ONE Stop: 05/14/23 17:35 Last Admin: 05/14/23 17:53 Dose: 40 meq Documented By: CAROLYN Vital Signs Vital signs: Vital Signs - 8 hr 05/14/23 20:30 05/14/23 20:30 05/14/23 21:00 Pulse Rate 113 H Respiratory Rate 19 Blood Pressure 147/84 H 149/66 H Pulse Oximetry 98 05/14/23 21:00 05/14/23 21:30 05/14/23 21:30 Pulse Rate 98 H 92 H Respiratory Rate 26 H 18 Blood Pressure 144/64 H Pulse Oximetry 100 98 05/14/23 22:00 05/14/23 22:00 05/14/23 22:30 Pulse Rate 108 H Respiratory Rate 19 Blood Pressure 142/71 H 145/75 H Pulse Oximetry 97 05/14/23 22:30 05/14/23 23:00 05/14/23 23:00 Pulse Rate 109 H 109 H Respiratory Rate 23 21 Blood Pressure 137/70 Pulse Oximetry 95 95 05/14/23 23:30 05/14/23 23:30 05/15/23 00:00 Pulse Rate 101 H Respiratory Rate 35 H Blood Pressure 142/76 H 152/93 H Pulse Oximetry 96 05/15/23 00:00 05/15/23 00:30 05/15/23 00:30 Pulse Rate 107 H 112 H Respiratory Rate 24 18 Blood Pressure 150/74 H Pulse Oximetry 95 95 05/15/23 01:00 05/15/23 01:00 05/15/23 01:30 Pulse Rate 113 H Respiratory Rate 18 Blood Pressure 137/74 143/78 H Pulse Oximetry 95 05/15/23 01:30 Pulse Rate 119 H Respiratory Rate 18 Blood Pressure Pulse Oximetry 94 Medical Decision Making Lab Data 05/14/23 16:55 05/14/23 16:55 Labs: Lab Results 05/14/23 Range/Units 16:55 WBC 3.8 L (4.5-11.0) X10^3/uL RBC 4.51 (4.0-5.2) X10^6/uL Hgb 11.9 L (12.0-16.0) g/dL Hct 37.0 (36-46) % MCV 82.0 (80-100) fL MCH 26.5 (26-34) PG MCHC 32.3 (30-36) % RDW 24.3 H (11.6-14.8) % Plt Count 57 L (150-400) X10^3/uL Neut % (Auto) Not Reportable Lymph % (Auto) Not Reportable [place] % (Auto) Not Reportable Eos % (Auto) Not Reportable Baso % (Auto) Not Reportable Lymph # (Auto) Not Reportable [place] # (Auto) Not Reportable Baso # (Auto) Not Reportable Total Counted 100 Seg Neutrophils % 79.0 H (38-70) % Band Neutrophils % 1.0 L (3-7) % Lymphocytes % (Manual) 13.0 L (25-45) % Monocytes % (Manual) 5.0 (2-11) % Basophils % (Manual) 2.0 H (0-1) % Neutrophils # (Manual) 3040 (2499-6239) /uL RBC Morphology See below Anisocytosis 2+ H Target Cells 2+ H PT 16.8 H (9.4-12.5) SECONDS INR 1.5 H (0.9-1.3) Sodium 126 L (137-145) mmol/L Potassium 2.7 L* (3.4-5.1) mmol/L Chloride 89 L (98-107) mmol/L Carbon Dioxide 15 L (22-32) mmol/L BUN 3 L (7-17) mg/dL Creatinine 0.49 L (0.52-1.04) mg/dL Estimated GFR > 60 (>60) mL/min BUN/Creatinine Ratio 6.1 (6-22) Glucose 123 H (70-100) mg/dL Calcium 8.5 (8.4-10.2) mg/dL Total Bilirubin 13.4 H (0.2-1.3) mg/dL AST 411 H (14-36) IU/L ALT 128 H (<35) IU/L Alkaline Phosphatase 201 H (38-126) U/L Ammonia 11 (9-30) umol/L Total Protein 7.3 (6.3-8.2) g/dL Albumin 3.9 (3.5-5.0) g/dL Globulin 3.4 (1.7-4.1) g/dL Albumin/Globulin Ratio 1.1 (1.0-2.8) Lipase 194 (23-300) U/L MDM Narrative Medical decision making narrative: CC: Alcohol withdrawal Complicating co-morbidities: Alcohol use disorder, new acute jaundice appreciated Data collected from: patient, Medical records reviewed: Discharge summary from June 10, 2022 with a alcohol use disorder is reviewed Differential considered: Acute alcohol withdrawal, cirrhosis, acute hepatitis, common bile duct stone, cholecystitis Exam documented above, pertinent findings include: Significant jaundice, slightly distended abdomen that is nontender to palpation. Still tachycardic hypertensive and tremulous after initial dose of phenobarbital Lab Test results independently reviewed as above. Pertinent findings: CBC shows white count low at 3.8, normal H&H 11.9 and 37. Platelets were low at 57 which is close to her baseline INR is elevated at 1.5 patient is not on Coumadin Chemistries show hyponatremia with a sodium of 126, hypokalemia with a potassium of 2.6. Appropriate renal function. Significantly elevated AST ALT and alk-phos with your more significantly elevated bilirubin. With previous admissions the transaminases have been elevated to this level however bilirubin at 13.4 is more than double highest elevation with previous admissions Ammonia level is undetectable Lipase is unremarkable Independently reviewed EKG sinus tachycardia rate of 103. Prolonged QT at 547, no acute ischemic changes Imaging studies independently reviewed: Ultrasound today shows marked hepatic steatosis probably early cirrhosis. Diffuse gallbladder wall thickening with stones present but no distention and the mild wall thickening is felt to be a sequelae of liver disease rather than acute cholecystitis Consultations: Reviewed with Dr. Mckenzie, abdomen is accepted Treatments: Fluids: Zofran, phenobarbital 260 mg IV given at 3:45 a.m. this afternoon, oral potassium 40 mEq 40 mEq of IV potassium. Thiamin 100 mg IV and 2 additional mg of Ativan given at 1245 this morning. Patient requested her on trazodone 100 mg and this was given Re-evaluations: Patient is sleeping nicely after the trazodone in the phenobarbital but is increasingly tachycardic, hypertensive and has significant resting tremor. Two additional mg of Ativan will be given Discussion: 32-year-old woman with severe alcohol use disorder with what appears to be worsening liver failure without evidence of dilated biliary ducts to suggest common duct stone or signs of acute cholecystitis. This is most likely an alcoholic hepatitis. Viral hepatitis panel has been added. Significant electrolyte abnormalities with low potassium and sodium. Magnesium will also checked and empirically replaced. EKG is notable for prolonged QT at 547 milliseconds. Given the additional medical findings this patient is going to need admission to [facility] and will not yet be appropriate for simple alcohol detox at 1 of the outpatient facilities. We will need social work consultation as well. No signs of severe infection, active bleeding or encephalopathy. Patient is aware of need for hospital admission. Discharge Plan Departure Patient Disposition: Admitted As Inpatient Clinical Impression: Acute hypokalemia, Elevated bilirubin, Elevated transaminase level, Acute hyponatremia, Prolonged QT interval, Acute alcoholic hepatitis Alcohol withdrawal syndrome Qualifiers: Complication of substance-induced condition: with unspecified complication Qualified Code(s): F10.939 - Alcohol use, unspecified with withdrawal, unspecified Admit Date/Time: 05/15/23 01:44 Admit Provider: Shahriar Lisa
[2023-05-15] MEDS: LORazepam 2 MG/ML INJ IV (01:00)
[2023-05-15] MEDS: THIAMINE 100 MG in SODIUM CHLORIDE 0.9% 100 ML 404 MG IV (01:01)
[2023-05-15] MEDS: MAGNESIUM SULFATE 2 GM/50 ML PIGGYBACK IV (01:16)
[2023-05-15 04:50] LABS: MRSA (Nasal) PCR Not Detected (Not Detect)
[2023-05-15 04:53] LABS: INR 1.5 (0.9-1.3); Prothrombin Time 16.7 SECONDS (9.4-12.5)
[2023-05-15 04:58] LABS: Alanine Aminotransferase 105 IU/L (<35); Albumin 3.2 g/dL (3.5-5.0); Alkaline Phosphatase 185 U/L (38-126); Aspartate Aminotransferase 369 IU/L (14-36); Bilirubin Total 13.2 mg/dL (0.2-1.3); Carbon Dioxide 23 mmol/L (22-32); Chloride 98 mmol/L (98-107); Estimated Glomerular Filt Rate > 60 mL/min (>60); Globulin 3.1 g/dL (1.7-4.1); Glucose 103 mg/dL (70-100); HEMOLYSIS < 15 (0-50); Sodium 129 mmol/L (137-145); Total Protein 6.3 g/dL (6.3-8.2)
[2023-05-15 04:59] LABS: Hematocrit 31.5 % (36-46); Hemoglobin 10.3 g/dL (12.0-16.0); Mean Corpuscular HGB Conc 32.9 % (30-36); Mean Corpuscular Hemoglobin 26.5 PG (26-34); Mean Corpuscular Volume 80.7 fL (80-100); Red Cell Distribution Width 24.8 % (11.6-14.8); White Blood Cell Count 2.7 X10^3/uL (4.5-11.0)
[2023-05-15 05:08] LABS: BUN Creatinine Ratio 3.4 (6-22); Blood Urea Nitrogen < 2 mg/dL (7-17)
[2023-05-15 05:33] LABS: Add Manual Diff / Slide Review YES
[2023-05-15 05:34] LABS: Platelet Count 29 X10^3/uL (150-400)
[2023-05-15 05:38] LABS: Neutrophils Absolute Manual 2052 /uL (3000-5900); Total Cells Counted 100
[2023-05-15 05:39] LABS: Anisocytosis 2+; Macrocytosis 2+; Microcytosis 1+; Platelet Estimate Decreased on smear; Polychromasia 1+; Stomatocytes 2+; Target Cells 2+
--- NOTE | 2023-05-15 06:51 | PC.NURSE ---
shift stacker RN note Pt arrived from ER via stretcher, ambulated with assist to bed, A&Ox4, drowsy and falls asleep quickly during admit process, TAYLOR with gen weakness, bilat arm tremors, CIWA 4-6, sclera jaundiced, VSS, afebrile, PPPx4, no edema, ST 110s, lungs clear, O2 sats >92% on RA, abd round soft with BS, pt had voided in ER, skin warm and dry, periph IV site R arm patent, denies pain, meds and labs as ordered, seizure precautions in place, bed alarm on and belongings/call jacobs within reach, continue to monitor
[2023-05-15 06:55] LABS: Ethanol (ETOH) < 10 mg/dL
--- NOTE | 2023-05-15 07:19 | P.HP_ITS ---
History of Present Illness History of Present Illness Date Patient Seen: 05/15/23 Chief complaint: detoxing/struggling Narrative: 32 y/o alcoholic, with several prior attempts to detox, presented to ED, 12 hours after her last drink, wanting to detox. On presentation to ED tremulous, tachycardic, she was given phenobarb, followed by [place]. At the time of my admission she appears to be more comfortable with initiated CIWA protocol. Additionally, she is having severe alcoholic hepatitis. [facility] Medical History Coagulopathy Pancytopenia Thrombocythemia Alcohol abuse Surgical History No history of previous surgery Family History Father Depression Mother No pertinent past medical history Social History household members: friend(s) Smoking Status: Former smoker alcohol intake: current Meds Home Medications and Allergies Home Medications Medication Instructions Recorded Confirmed Type citalopram 40 mg tablet 40 mg PO DAILY 05/14/23 05/14/23 History pantoprazole 40 mg tablet,delayed 40 mg PO DAILY 05/14/23 05/14/23 History release trazodone 100 mg tablet 100 mg PO ONCE PM 05/14/23 05/14/23 History Allergies Allergy/AdvReac Type Severity Reaction Status Date / Time aspirin Allergy Verified 05/14/23 20:22 Review of Systems Constitutional Comments: Feels weak, fatigued Cardiovascular Comments: w/o chest pain Respiratory Comments: mild chronic shortness of breath Gastrointestinal Comments: distended abdomen Genitourinary Comments: w/o dysuria Neurologic Comments: tremulous Psychiatric Comments: anxious w/o hallucinations Exam Vital Signs (past 8 hours): - 05/14/23 23:30 05/14/23 23:30 05/15/23 00:00 Temperature Pulse Rate 101 H Respiratory Rate 35 H Blood Pressure 142/76 H 152/93 H Pulse Oximetry 96 Oxygen Delivery Method Oxygen Flow Rate 05/15/23 00:00 05/15/23 00:30 05/15/23 00:30 Temperature Pulse Rate 107 H 112 H Respiratory Rate 24 18 Blood Pressure 150/74 H Pulse Oximetry 95 95 Oxygen Delivery Method Oxygen Flow Rate 05/15/23 01:00 05/15/23 01:00 05/15/23 01:30 Temperature Pulse Rate 113 H Respiratory Rate 18 Blood Pressure 137/74 143/78 H Pulse Oximetry 95 Oxygen Delivery Method Oxygen Flow Rate 05/15/23 01:30 05/15/23 01:49 05/15/23 02:00 Temperature 99 F Pulse Rate 119 H 104 H Respiratory Rate 18 18 Blood Pressure 136/75 141/76 H Pulse Oximetry 94 94 Oxygen Delivery Method Oxygen Flow Rate 05/15/23 02:00 05/15/23 02:07 05/15/23 02:30 Temperature Pulse Rate 121 H Respiratory Rate 19 Blood Pressure 144/79 H Pulse Oximetry 95 Oxygen Delivery Method Room Air Oxygen Flow Rate 05/15/23 02:30 05/15/23 03:00 05/15/23 03:00 Temperature Pulse Rate 109 H 107 H Respiratory Rate 19 18 Blood Pressure 149/81 H Pulse Oximetry 96 97 Oxygen Delivery Method Oxygen Flow Rate 05/15/23 03:39 05/15/23 04:00 05/15/23 05:00 Temperature 99.0 F Pulse Rate 120 H 118 H 111 H Respiratory Rate 16 18 16 Blood Pressure 136/75 Pulse Oximetry 95 Oxygen Delivery Method Oxygen Flow Rate 0 05/15/23 05:55 05/15/23 05:55 05/15/23 06:00 Temperature Pulse Rate 110 H 108 H Respiratory Rate 35 H 19 Blood Pressure 139/85 Pulse Oximetry 96 96 Oxygen Delivery Method Oxygen Flow Rate Oxygen Delivery Method Room Air Oxygen Flow Rate 0 Const Other: Laying in bed in no distress HENNH Other: normocephalic Eyes Other: scleral icterus, EOMI, reactive pupils Neck Other: supple Resp Other: poor respiratory effort Cardio Other: tachycardic, regular GI Other: likely with ascites Skin Other: Jaundiced Neuro Other: tremor Extrem Other: w/o swelling Psych Other: anxious w/o hallucinations Objective Labs 05/15/23 04:15 05/15/23 04:15 Labs: Laboratory Results - last 24 hr 05/14/23 05/15/23 05/15/23 16:55 03:25 04:15 WBC 3.8 L 2.7 L RBC 4.51 3.90 L Hgb 11.9 L 10.3 L Hct 37.0 31.5 L MCV 82.0 80.7 MCH 26.5 26.5 MCHC 32.3 32.9 RDW 24.3 H 24.8 H Plt Count 57 L 29 L* Neut % (Auto) Not Reportable Not Reportable Lymph % (Auto) Not Reportable Not Reportable [place] % (Auto) Not Reportable Not Reportable Eos % (Auto) Not Reportable Not Reportable Baso % (Auto) Not Reportable Not Reportable Lymph # (Auto) Not Reportable Not Reportable [place] # (Auto) Not Reportable Not Reportable Baso # (Auto) Not Reportable Not Reportable Total Counted 100 100 Seg Neutrophils % 79.0 H 76.0 H Band Neutrophils % 1.0 L Lymphocytes % (Manual) 13.0 L 21.0 L Monocytes % (Manual) 5.0 1.0 L Basophils % (Manual) 2.0 H 2.0 H Neutrophils # (Manual) 3040 2052 L Platelet Estimate Decreased on smear RBC Morphology See below See below Polychromasia 1+ H Anisocytosis 2+ H 2+ H Microcytosis 1+ H Macrocytosis 2+ H Target Cells 2+ H 2+ H Stomatocytes 2+ H PT 16.8 H 16.7 H INR 1.5 H 1.5 H Sodium 126 L 129 L Potassium 2.7 L* 3.0 L Chloride 89 L 98 Carbon Dioxide 15 L 23 BUN 3 L < 2 L Creatinine 0.49 L 0.58 Estimated GFR > 60 > 60 BUN/Creatinine Ratio 6.1 3.4 L Glucose 123 H 103 H Calcium 8.5 8.0 L Magnesium 2.0 Total Bilirubin 13.4 H 13.2 H AST 411 H 369 H ALT 128 H 105 H Alkaline Phosphatase 201 H 185 H Ammonia 11 Total Protein 7.3 6.3 Albumin 3.9 3.2 L Globulin 3.4 3.1 Albumin/Globulin Ratio 1.1 1.0 Lipase 194 Nasal Screen MRSA (PCR) Not detected Ethyl Alcohol < 10 Assessment & Plan Assessment and plan (1) Alcohol withdrawal syndrome: Qualifiers: Complication of substance-induced condition: with unspecified complication Qualified Code(s): F10.939 - Alcohol use, unspecified with withdrawal, unspecified Status: Acute Plan: CIWA protocol, Ativan, ICU monitoring (2) Acute alcoholic hepatitis: Status: Acute Plan: MELD 28. (3) Alcohol abuse: Status: Acute Plan: counselling, SW for potential outpt detox (4) Pancytopenia: Status: Acute Plan: 2nd to liver cirrhosis and alcohol toxicity to bone marrow (5) Coagulopathy: Status: Acute Plan: 2nd to alcoholic hepatitis - mildly elevated INR - w/o bruising or bleeding (6) Acute hypokalemia: Status: Acute Plan: KCl supplemented, in addition to Mg - CMP pending Quality VTE Deep Vein Thrombosis/Pulmonary Embolism Present on Admission: No
[2023-05-15] MEDS: PANTOPRAZOLE 40 MG VIAL IV (08:35)
[2023-05-15] MEDS: FOLIC ACID 1 MG TABLET PO (08:38)
[2023-05-15] MEDS: MULTIVITAMIN 1 TABLET 1 TAB PO (08:38)
[2023-05-15] MEDS: THIAMINE 200 MG in SODIUM CHLORIDE 0.9% 100 ML 408 MG IV (08:38)
[2023-05-15] MEDS: chlordiazePOXIDE 25 MG CAPSULE 50 MG PO ×2 (08:39→20:53)
[2023-05-15] MEDS: POTASSIUM CHLORIDE 20 MEQ TAB 40 MEQ PO (10:40)
[2023-05-15 14:32] LABS: Appearance Urine UA CLEAR; Bilirubin Urine UA 3+ (NEGATIVE); Color Urine UA ORANGE; Glucose Urine UA TRACE g/dL (Negative); Ketones Urine UA 1+ (NEGATIVE); Leukocyte Esterase Urine UA TRACE (NEGATIVE); Nitrite Urine UA NEGATIVE (Negative); Occult Blood Urine UA NEGATIVE (Negative); Protein Urine UA NEGATIVE (Negative); Specific Gravity Urine UA <=1.005 (1.000-1.035); Urobilinogen Urine UA 0.2 E.U./dL (0.2)
[2023-05-15 14:34] LABS: pH Urine UA 6.5 (4.5-8.0)
[2023-05-15 14:40] LABS: Bacteria Urine Few (2-10); Ictotest Urine Positive (Negative); RBC Urine None Seen (0-5/HPF); Squamous Epithelial Cell Urine 1-5 /HPF (0-5/HPF); Transitional Epi Cells Urine 0-1/HPF (0-5/HPF); WBC Urine 0-1/HPF (0-5/HPF)
[2023-05-15 14:41] LABS: Culture Indicated Urine Specimen Cultured
--- NOTE | 2023-05-15 16:06 | P.PN_ITS ---
Subjective Subjective Date Patient Seen: 05/15/23 Time Patient Seen: 08:00 Interval history: She denies being anxious; however she is still quite tremulous. She says she has never had withdrawal seizure. She is interested in rehab or detox when stable. Exam Vital Signs (past 8 hours): - 05/15/23 08:30 05/15/23 09:00 05/15/23 09:30 Temperature Pulse Rate 119 H 113 H 116 H Respiratory Rate 18 18 18 Blood Pressure Pulse Oximetry 94 Oxygen Flow Rate 05/15/23 10:00 05/15/23 10:30 05/15/23 11:00 Temperature Pulse Rate 117 H 106 H 102 H Respiratory Rate 19 16 26 H Blood Pressure Pulse Oximetry Oxygen Flow Rate 05/15/23 11:00 05/15/23 11:11 05/15/23 11:11 Temperature 98.0 F Pulse Rate 104 H 105 H Respiratory Rate 20 19 Blood Pressure 138/88 138/88 Pulse Oximetry 94 95 Oxygen Flow Rate 0 05/15/23 11:30 05/15/23 12:00 Temperature Pulse Rate 110 H 107 H Respiratory Rate 17 19 Blood Pressure Pulse Oximetry 94 93 Oxygen Flow Rate Oxygen Delivery Method Room Air Oxygen Flow Rate 0 Narrative Exam Narrative: GEN: tremulous CV: tachycardic, no murmurs PULM: clear bilaterally ABD: soft, nontender EXT: tremulous NEURO: awake, alert, oriented, no focal deficits Objective Labs 05/15/23 04:15 05/15/23 04:15 Labs: Laboratory Results - last 24 hr 05/14/23 05/15/23 05/15/23 16:55 03:25 04:15 WBC 3.8 L 2.7 L RBC 4.51 3.90 L Hgb 11.9 L 10.3 L Hct 37.0 31.5 L MCV 82.0 80.7 MCH 26.5 26.5 MCHC 32.3 32.9 RDW 24.3 H 24.8 H Plt Count 57 L 29 L* Neut % (Auto) Not Reportable Not Reportable Lymph % (Auto) Not Reportable Not Reportable [place] % (Auto) Not Reportable Not Reportable Eos % (Auto) Not Reportable Not Reportable Baso % (Auto) Not Reportable Not Reportable Lymph # (Auto) Not Reportable Not Reportable [place] # (Auto) Not Reportable Not Reportable Baso # (Auto) Not Reportable Not Reportable Total Counted 100 100 Seg Neutrophils % 79.0 H 76.0 H Band Neutrophils % 1.0 L Lymphocytes % (Manual) 13.0 L 21.0 L Monocytes % (Manual) 5.0 1.0 L Basophils % (Manual) 2.0 H 2.0 H Neutrophils # (Manual) 3040 2052 L Platelet Estimate Decreased on smear RBC Morphology See below See below Polychromasia 1+ H Anisocytosis 2+ H 2+ H Microcytosis 1+ H Macrocytosis 2+ H Target Cells 2+ H 2+ H Stomatocytes 2+ H PT 16.8 H 16.7 H INR 1.5 H 1.5 H Sodium 126 L 129 L Potassium 2.7 L* 3.0 L Chloride 89 L 98 Carbon Dioxide 15 L 23 BUN 3 L < 2 L Creatinine 0.49 L 0.58 Estimated GFR > 60 > 60 BUN/Creatinine Ratio 6.1 3.4 L Glucose 123 H 103 H Calcium 8.5 8.0 L Magnesium 2.0 Total Bilirubin 13.4 H 13.2 H AST 411 H 369 H ALT 128 H 105 H Alkaline Phosphatase 201 H 185 H Ammonia 11 Total Protein 7.3 6.3 Albumin 3.9 3.2 L Globulin 3.4 3.1 Albumin/Globulin Ratio 1.1 1.0 Lipase 194 Urine Color Urine Appearance Urine pH Ur Specific [place] Urine Protein Urine Glucose (UA) Urine Ketones Urine Occult Blood Urine Nitrate Urine Bilirubin Ur Bilirubin Confirm Urine Urobilinogen Ur Leukocyte Esterase Urine RBC Urine WBC Ur Squamous Epith Cells Ur Transition Epith Cell Urine Bacteria Ur Culture Indicated? Nasal Screen MRSA (PCR) Not detected Ethyl Alcohol < 10 05/15/23 12:30 WBC RBC Hgb Hct MCV MCH MCHC RDW Plt Count Neut % (Auto) Lymph % (Auto) [place] % (Auto) Eos % (Auto) Baso % (Auto) Lymph # (Auto) [place] # (Auto) Baso # (Auto) Total Counted Seg Neutrophils % Band Neutrophils % Lymphocytes % (Manual) Monocytes % (Manual) Basophils % (Manual) Neutrophils # (Manual) Platelet Estimate RBC Morphology Polychromasia Anisocytosis Microcytosis Macrocytosis Target Cells Stomatocytes PT INR Sodium Potassium Chloride Carbon Dioxide BUN Creatinine Estimated GFR BUN/Creatinine Ratio Glucose Calcium Magnesium Total Bilirubin AST ALT Alkaline Phosphatase Ammonia Total Protein Albumin Globulin Albumin/Globulin Ratio Lipase Urine Color [place] Urine Appearance Clear Urine pH 6.5 Ur Specific [place] <=1.005 Urine Protein Negative Urine Glucose (UA) Trace H Urine Ketones 1+ H Urine Occult Blood Negative Urine Nitrate Negative Urine Bilirubin 3+ H Ur Bilirubin Confirm Positive H Urine Urobilinogen 0.2 Ur Leukocyte Esterase Trace H Urine RBC None seen Urine WBC 0-1/hpf Ur Squamous Epith Cells 1-5 /hpf Ur Transition Epith Cell 0-1/hpf Urine Bacteria Few (2-10) H Ur Culture Indicated? Specimen cultured Nasal Screen MRSA (PCR) Ethyl Alcohol PFSH Medical History Coagulopathy Pancytopenia Thrombocythemia Alcohol abuse Surgical History No history of previous surgery Family History Father Depression Mother No pertinent past medical history Social History household members: friend(s) Smoking Status: Former smoker alcohol intake: current Assessment & Plan Assessment and plan (1) Alcohol withdrawal syndrome: Qualifiers: Complication of substance-induced condition: with unspecified complication Qualified Code(s): F10.939 - Alcohol use, unspecified with withdrawal, unspecified Status: Acute Plan: -[facility] protocol ordered -continue ativan -add librium (2) Acute alcoholic hepatitis: Status: Acute Plan: MELD 28. DF is 31. Check LFTs daily. Consider steroids (3) Alcohol abuse: Status: Acute Plan: counselling, SW for potential outpt detox (4) Pancytopenia: Status: Acute Plan: secondary to alcohol abuse and liver injury (5) Coagulopathy: Status: Acute Plan: 2nd to alcoholic hepatitis - mildly elevated INR - w/o bruising or bleeding (6) Acute hypokalemia: Status: Acute Plan: KCl supplemented, in addition to Mg - CMP pending Quality VTE Deep Vein Thrombosis/Pulmonary Embolism Present on Admission: No
--- NOTE | 2023-05-15 16:45 | CM.DANOTE ---
Brief DCP Assessment note Patient is a 32yo F here following alcohol abuse withdrawal. PCP Silvia Kent Payer [employer] and Medicaid CUE WORKER reviewed EMR. Per provider, no discharge today. Per chart, she is interested in rehab/detox when stable. Per RN, patient reports rehab of some sorts in past. Patient was sober for 17 days and then relapsed. per chart, CIWA has been max of 6 when awake so far, and has mostly been 0 due to patient sleeping throughout the day. CUE WORKER attempted three times to speak with patient. Patient too groggy for productive substance use/discharge planning conversation. Plan: dcp to follow. CM team will continue to follow for rehab/detox resources. Likely home when medically stable. CM team will follow closely. FREEMAN Paredes Discharge Planning/Care Management CM Discharge Assessment Start: 05/15/23 16:42 Freq: Status: Active Protocol: Document 05/15/23 16:42 (Rec: 05/15/23 16:45 [id number]) Discharge Planning Assessment Assigned Mule Packer FREEMAN Payan Advance Directives? No History Provided By Medical Record Prior Living Arrangements Apartment/Condo Household Members friend(s) Comment patient too groggy throughout the day for a comprehensive substance use/discharge planning conversation. Comment Awaiting medical plan of care to unfold before assessing for DC needs Whiteboard Updated in Patient Room with No name and ext. # of Mule Packer Review Status In Process Next Review Type Continued Stay Review
[2023-05-16] VITALS: BP 120/73; PULSE 109; RESP 14; TEMP 37; O2SAT 94
[2023-05-16] MEDS: IBUPROFEN 400 MG TABLET PO (03:17)
[2023-05-16 04:00] VITALS: BP 122/75; PULSE 110; RESP 17; TEMP 37.4; O2SAT 95
[2023-05-16 04:48] LABS: Calcium 8.4 mg/dL (8.4-10.2); Carbon Dioxide 24 mmol/L (22-32); Chloride 101 mmol/L (98-107); Estimated Glomerular Filt Rate > 60 mL/min (>60); Glucose 94 mg/dL (70-100); HEMOLYSIS < 15 (0-50); Sodium 133 mmol/L (137-145)
[2023-05-16 04:50] LABS: Hematocrit 30.3 % (36-46); Hemoglobin 9.8 g/dL (12.0-16.0); Mean Corpuscular HGB Conc 32.4 % (30-36); Mean Corpuscular Hemoglobin 26.5 PG (26-34); Mean Corpuscular Volume 81.9 fL (80-100); Red Cell Distribution Width 25.2 % (11.6-14.8); White Blood Cell Count 2.8 X10^3/uL (4.5-11.0)
[2023-05-16 04:52] LABS: Platelet Count 32 X10^3/uL (150-400)
[2023-05-16 05:07] LABS: Alanine Aminotransferase 96 IU/L (<35); Alkaline Phosphatase 176 U/L (38-126); Aspartate Aminotransferase 285 IU/L (14-36); Bilirubin Total 15.3 mg/dL (0.2-1.3); Bilirubin Unconjugated 2.1 mg/dL (0.0-1.1); Calcium 8.4 mg/dL (8.4-10.2); Carbon Dioxide 23 mmol/L (22-32); Chloride 100 mmol/L (98-107); Estimated Glomerular Filt Rate > 60 mL/min (>60); Glucose 91 mg/dL (70-100); HEMOLYSIS < 15 (0-50); Potassium 2.8 mmol/L (3.4-5.1); Sodium 133 mmol/L (137-145)
[2023-05-16 05:08] LABS: BUN Creatinine Ratio 3.4 (6-22); Blood Urea Nitrogen < 2 mg/dL (7-17); Potassium 2.8 mmol/L (3.4-5.1)
[2023-05-16 06:29] LABS: HBsAg Screen Negative (Negative); Hepatitis A Antibody IgM Negative (Negative); Hepatitis B Core Antibody IgM Negative (Negative); Hepatitis C Antibody Non Reactive (Non Reactive)
[2023-05-16] MEDS: FOLIC ACID 1 MG TABLET PO (08:13)
[2023-05-16] MEDS: chlordiazePOXIDE 25 MG CAPSULE 50 MG PO (08:13)
[2023-05-16] MEDS: MULTIVITAMIN 1 TABLET 1 TAB PO (08:13)
[2023-05-16] MEDS: POTASSIUM CHLORIDE 20 MEQ TAB 40 MEQ PO (08:13)
[2023-05-16] MEDS: cefTRIAXone 1,000 MG in SODIUM CHLORIDE 0.9% 100 ML 200 MG IV (08:13)
[2023-05-16] MEDS: CITALOPRAM 10 MG TABLET 40 MG PO (08:13)
[2023-05-16] MEDS: PANTOPRAZOLE 40 MG VIAL IV (08:14)
--- NOTE | 2023-05-16 09:25 | CM.DPC ---
ANIVAL Cont. Reviewed EMR and team updates for d/c planning needs. Met with pt at bedside, provided counseling to support her goals of maintaining abstinence from alcohol, as well as discussed her goals for moving forward. She is interested in going back into an inpatient rehab tx facility, and expressed that this episode of ETOH overdose was not only scary, but a wake-up call about her liver and health risks with continued drinking. She is spending today with her mother post-discharge to discuss planning to go back to [place] and live with her mother, and most likely will do tx down there. TREE WRAPPER did provide her with a packet of inpt [place] tx options, which she will also consider as alternative options to moving to [place]. No further d/c needs identified at this time. Her roommate will be transporting her back to their apartment at d/c.
--- NOTE | 2023-05-16 20:15 | P.DS_ITS ---
History of Present Illness History of Present Illness Date Patient Seen: 05/15/23 Chief complaint: detoxing/struggling Narrative: Per admitting physician: 32 y/o alcoholic, with several prior attempts to detox, presented to ED, 12 hours after her last drink, wanting to detox. On presentation to ED tremulous, tachycardic, she was given phenobarb, followed by Ativan. At the time of my admission she appears to be more comfortable with initiated CIWA protocol. Additionally, she is having severe alcoholic hepatitis. Discharge Providers Provider Date of admission: 05/15/23 01:44 Discharge Date: 05/16/23 Primary care physician: Silvia Kent, LISA, CANE FURNITURE MAKER Consults: 05/14/23 20:33 Consult to [facility] [place] - Ice Cutter Stat Comment: 05/15/23 01:55 Consult to [facility] [place] - Ice Cutter Routine Comment: needs outpt detox 05/15/23 01:58 Consult to Dietitian, Adult Routine Comment: Reason For Exam: alcoholic hepatitis Discharge provider: Mayco Panda MD Exam Vital Signs (past 8 hours): Oxygen Delivery Method Room Air Oxygen Flow Rate 0 Narrative Exam Narrative: GEN: no acute distress CV: tachycardic, no murmurs PULM: clear bilaterally ABD: soft, nontender EXT:no edema NEURO: awake, alert, oriented, no focal deficits Objective Labs 05/16/23 03:53 05/16/23 03:53 Labs: Laboratory Results - last 24 hr 05/15/23 05/16/23 05/16/23 04:15 03:53 03:53 WBC 2.8 L RBC 3.70 L Hgb 9.8 L Hct 30.3 L MCV 81.9 MCH 26.5 MCHC 32.4 RDW 25.2 H Plt Count 32 L* Sodium 133 L 133 L Potassium 2.8 L Chloride Carbon Dioxide BUN Creatinine Estimated GFR BUN/Creatinine Ratio Glucose Calcium Total Bilirubin Conjugated Bilirubin Unconjugated Bilirubin AST ALT Alkaline Phosphatase Total Protein Albumin Globulin Albumin/Globulin Ratio Hepatitis A IgM Ab Negative Hep Bs Antigen Negative Hep B Core IgM Ab Negative Hepatitis C Antibody Non reactive Hep C Ab Signal/Cutoff Comment 05/16/23 05/16/23 05/16/23 03:53 03:53 03:53 WBC RBC Hgb Hct MCV MCH MCHC RDW Plt Count Sodium Potassium 2.8 L Chloride 101 100 Carbon Dioxide 24 23 BUN < 2 L Creatinine Estimated GFR BUN/Creatinine Ratio Glucose Calcium Total Bilirubin Conjugated Bilirubin Unconjugated Bilirubin AST ALT Alkaline Phosphatase Total Protein Albumin Globulin Albumin/Globulin Ratio Hepatitis A IgM Ab Hep Bs Antigen Hep B Core IgM Ab Hepatitis C Antibody Hep C Ab Signal/Cutoff 05/16/23 05/16/23 05/16/23 03:53 03:53 03:53 WBC RBC Hgb Hct MCV MCH MCHC RDW Plt Count Sodium Potassium Chloride Carbon Dioxide BUN < 2 L Creatinine 0.59 0.59 Estimated GFR > 60 > 60 BUN/Creatinine Ratio 3.4 L Glucose Calcium Total Bilirubin Conjugated Bilirubin Unconjugated Bilirubin AST ALT Alkaline Phosphatase Total Protein Albumin Globulin Albumin/Globulin Ratio Hepatitis A IgM Ab Hep Bs Antigen Hep B Core IgM Ab Hepatitis C Antibody Hep C Ab Signal/Cutoff 05/16/23 05/16/23 05/16/23 03:53 03:53 03:53 WBC RBC Hgb Hct MCV MCH MCHC RDW Plt Count Sodium Potassium Chloride Carbon Dioxide BUN Creatinine Estimated GFR BUN/Creatinine Ratio 3.4 L Glucose 94 91 Calcium 8.4 8.4 Total Bilirubin 15.3 H Conjugated Bilirubin 10.0 H Unconjugated Bilirubin 2.1 H AST 285 H ALT 96 H Alkaline Phosphatase 176 H Total Protein 6.0 L Albumin 3.0 L Globulin 3.0 Albumin/Globulin Ratio 1.0 Hepatitis A IgM Ab Hep Bs Antigen Hep B Core IgM Ab Hepatitis C Antibody Hep C Ab Signal/Cutoff [facility] Medical History Coagulopathy Pancytopenia Thrombocythemia Alcohol abuse Surgical History No history of previous surgery Family History Father Depression Mother No pertinent past medical history Social History household members: friend(s) Smoking Status: Former smoker alcohol intake: current Discharge Assessment & Plan Assessment and Plan Assessment: 1. Alcohol withddrawal with alcohol abuse 2. Alcoholic cirrhosis 3. Pancytopenia 4. Hypokalemia 5. Alcoholic hepatitis 6. Possible UTI Plan of Treatment: Ms. Chase was admitted for alcoholic withdrawal. She has likely alcoholic cirrhosis and pancytopenia from this. She had low potassium and this was repleted. She had elevated bilirubin, DF was 31, she had no abdominal pain and was not started on steroids. She had possible UTI and was started on antibiotics. She followed up with social work and was planning to move to [place] close to family and undergo rehab there for her substance abuse. Discharge Plan Discharge Plan Patient Disposition: Home Provider Discharge Comment: Ms. Chase came to the hospital for alcohol detox. She improved and was able to be discharged. Discharge orders & Medications Prescriptions: New folic acid 1 mg Tablet 1 mg PO DAILY Qty: 30 0RF multivitamin with folic acid [Tab-A-Fela] 400 mcg Tablet 1 tab PO DAILY Qty: 30 0RF potassium chloride 20 mEq tablet,ER particles/crystals 20 meq PO DAILY Qty: 30 0RF thiamine HCl (vitamin B1) 100 mg tablet 50 mg PO DAILY Qty: 30 0RF sulfamethoxazole-trimethoprim [Bactrim DS] 800-160 mg tablet 1 tab PO BID Qty: 4 0RF chlordiazepoxide HCl 25 mg capsule 50 mg PO TID Qty: 5 0RF Rx Instructions: take 2 more doses on 05/16, 2 doses on 05/17, 1 dose of 05/18 and then stop Continued citalopram 40 mg tablet 40 mg PO DAILY trazodone 100 mg tablet 100 mg PO ONCE PM pantoprazole 40 mg tablet,delayed release (DR/EC) 40 mg PO DAILY Follow up/Referrals: Silvia Kent, LISA, CANE FURNITURE MAKER [Primary Care Provider] - Visit Report/Discharge Packet Stand Alone Forms: Patient Portal/API, Stroke Signs & Symptoms Discharge Data Primary Care Provider: Silvia Kent Quality VTE Deep Vein Thrombosis/Pulmonary Embolism Present on Admission: No
== END 2023-05-16 09:40 | disposition home or self-care (01) | DRG 775 ==
LOC: ED 05-15 00:57 → AC 05-15 01:45 → ICU 05-15 03:18
PROVIDERS: Emergency Medicine; Internal Medicine; Admitting Provider Internal Medicine; Emergency Provider Emergency Medicine; PCP Nurse Practitioner Family; Referring Provider Emergency Medicine; Visit Provider Internal Medicine
DX: F10.139 Alcohol abuse with withdrawal, unspecified (principal); K70.10 Alcoholic hepatitis without ascites; D61.818 Other pancytopenia; E87.6 Hypokalemia; K70.30 Alcoholic cirrhosis of liver without ascites; N39.0 Urinary tract infection, site not specified; R94.31 Abnormal electrocardiogram [ECG] [EKG]; Y90.0 Blood alcohol level of less than 20 mg/100 ml; Z87.891 Personal history of nicotine dependence
CPT/HCPCS: 36415; 76705; 80048; 80053; 80074; 80076; 80320; 81001; 82140; 83690; 83735; 85007; 85025; 85027; 85610; 87086; 87797; 93005; 93010; 96365; 96366; 96367; 96375; 99284; C9113; J0696; J2060; J2405; J2560; J3475

== ENCOUNTER 2023-05-27 13:11 | Emergency (ER) | payer OTHER, MEDICAID, SELFPAY ==
[2023-05-15 02:07] VITALS: BMI 30.8
[2023-05-27] VITALS (23 sets, daily range): BP systolic 106–136; BP diastolic 55–75; PULSE 70–85; RESP 15–20; TEMP 36.5; O2SAT 94–99; BMI 31.5
--- NOTE | 2023-05-27 13:47 | DI.RAD.S_ITS ---
PROCEDURE: XR CHEST 1V INDICATIONS: altered mental status TECHNIQUE: One view of the chest was acquired. COMPARISON: None. FINDINGS: Surgical changes and devices: None. Lungs and pleura: Lungs are clear. No pleural effusions or pneumothorax. Mediastinum: Mediastinal contours appear normal. Heart size is normal. Bones and chest wall: No suspicious bony lesions. Overlying soft tissues appear unremarkable. IMPRESSION: No acute cardiopulmonary abnormality is seen. Dictated by: Jessica Valentine M.D. on 05/27/2023 at 15:12 Approved by: Jessica Valentine M.D. on 05/27/2023 at 15:12
--- NOTE | 2023-05-27 13:55 | PC.NURSE ---
Pt appears jaundiced, pt states she has had increased brain fog and has had rhoda colored diarrhea every hour that keeps her up at night. Pt states she has not had a drink since before her last hospitalization. Pt is A&Ox4 but is slow to answer questions. Pt states she feels like he abdomen is more distended than normal.
[2023-05-27 13:56] LABS: Basophils Absolute Auto 0 /uL (0-100); Basophils Percent Auto 0.3 % (0-2); Eosinophils Absolute Auto 0 /uL (0-450); Eosinophils Percent Auto 0.5 % (2-4); Hemoglobin 11.1 g/dL (12.0-16.0); Lymphocytes Absolute Auto 700 /uL (1100-4500); Lymphocytes Percent Auto 12.2 % (25-40); Mean Corpuscular HGB Conc 33.6 % (30-36); Mean Corpuscular Hemoglobin 29.6 PG (26-34); Monocytes Absolute Auto 700 /uL (0-900); Neutrophils Absolute Auto 4300 /uL (1500-7000); Platelet Count 128 X10^3/uL (150-400); Red Blood Cell Count 3.75 X10^6/uL (4.0-5.2); White Blood Cell Count 5.7 X10^3/uL (4.5-11.0)
[2023-05-27 13:59] LABS: Alanine Aminotransferase 39 IU/L (<35); Albumin 3.2 g/dL (3.5-5.0); Albumin Globulin Ratio 0.7 (1.0-2.8); Alkaline Phosphatase 177 U/L (38-126); Aspartate Aminotransferase 139 IU/L (14-36); BUN Creatinine Ratio 5.9 (6-22); Blood Urea Nitrogen 16 mg/dL (7-17); Calcium 9.4 mg/dL (8.4-10.2); Carbon Dioxide 18 mmol/L (22-32); Chloride 107 mmol/L (98-107); Estimated Glomerular Filt Rate 23 mL/min (>60); Globulin 4.4 g/dL (1.7-4.1); Glucose 93 mg/dL (70-100); HEMOLYSIS 35 (0-50); Potassium 3.1 mmol/L (3.4-5.1); Sodium 138 mmol/L (137-145); Total Protein 7.6 g/dL (6.3-8.2)
[2023-05-27 14:01] LABS: Add Manual Diff / Slide Review SLIDE REVIEW
[2023-05-27 14:04] LABS: Bilirubin Total 33.7 mg/dL (0.2-1.3)
[2023-05-27 14:05] LABS: Ammonia (NH3) 35 umol/L (9-30)
[2023-05-27 14:12] LABS: Anisocytosis 3+
[2023-05-27 16:21] LABS: Lipase 154 U/L (23-300)
[2023-05-27 16:31] LABS: INR 1.4 (0.9-1.3); PTT Partial Thromboplastin Tim 39 SECONDS (25.1-36.5); Prothrombin Time 16.2 SECONDS (9.4-12.5)
[2023-05-27] MEDS: LACTULOSE 20 GM/30 ML SOLUTION PO (16:49)
[2023-05-27] MEDS: POTASSIUM CHLORIDE 20 MEQ TAB 40 MEQ PO (16:50)
--- NOTE | 2023-05-27 16:54 | DI.CT.S_ITS ---
PROCEDURE: CT KIDNEY URETER BLADDER (KUB) INDICATIONS: jaundice, renal failiure TECHNIQUE: Axial sections were acquired from the lung bases to the pubic symphysis. Coronal and sagittal reformats were performed. For radiation dose reduction, the following was used: automated exposure control, adjustment of mA and/or kV according to patient size. COMPARISON: None. FINDINGS: Image quality: Excellent. Lung bases: Bibasilar scarring/atelectasis is seen. Heart: No significant findings. URINARY: Right Kidney: No stones or hydronephrosis. Right Ureter: No hydroureter. Left Kidney: No stones or hydronephrosis. Left Ureter: No hydroureter. Bladder: Normal wall thickness. No stones. ABDOMEN: Liver: Lobulated liver contour is seen with diffusely decreased liver parenchymal density. Gallbladder: Multiple small calcified stones are seen in dependent portion of gallbladder lumen. No definite gallbladder wall thickening or pericholecystic fluid. Gallbladder is contracted. Biliary ducts: No biliary dilation. Pancreas: No ductal dilation. Spleen: There is splenomegaly, no discrete splenic lesion. Adrenal Glands: No adrenal nodules. Stomach and Bowel: Examination of unopacified bowel loops shows diffuse colonic wall thickening with mild pericolonic fat stranding. No gross small bowel or gastric wall thickening is seen. Appendix is visualized in right lower quadrant and is normal in size and overall appearance. No abscess collection. Peritoneum: No abnormal intraperitoneal fluid. No free air. Ventral Wall: No hernia. Abdominal Nodes: No enlarged retroperitoneal or mesenteric lymph nodes. Vessels: Aorta and inferior vena cava are normal in size. PELVIS: Pelvic Organs: Hyperdensity within endometrium is seen which may represent endometrial blood suggest clinical correlation. No gross abnormality is seen in bilateral adnexa.. Pelvic Nodes: Unremarkable. Miscellaneous: No inguinal hernias are seen. Bones: No suspicious bony lesions. No acute vertebral body compression fracture. IMPRESSION: 1. No obstructing renal stones or hydronephrosis. No hydroureter. Normal appearing urinary bladder. 2. Cirrhotic appearing liver. No discrete hepatic mass. Splenomegaly, no discrete splenic lesion. 3. Contracted gallbladder with multiple gallstones. No definite CT evidence of acute cholecystitis. No biliary ductal dilatation. 4. Diffuse colonic wall thickening and edema with pericolonic fat stranding concerning for infectious inflammatory colitis. No abscess collection. No free fluid or free air. Normal appendix. 5. Possible blood within endometrial cavity suggest clinical correlation. Dictated by: Zenon Mora M.D. on 05/27/2023 at 17:53 Approved by: Zenon Mora M.D. on 05/27/2023 at 18:01
[2023-05-27 17:50] LABS: Ethanol (ETOH) < 10 mg/dL
--- NOTE | 2023-05-27 18:02 | ED.WEAKNESS ---
HPI - Weakness General Chief complaint: Weakness Stated complaint: Jaundice, fall T-2, dizzy Time Seen by Provider: 05/27/23 14:23 Source: patient Mode of arrival: Wheelchair Related Data Home Medications Medication Instructions Recorded Confirmed citalopram 40 mg tablet 40 mg PO DAILY 05/14/23 05/14/23 pantoprazole 40 mg tablet,delayed 40 mg PO DAILY 05/14/23 05/14/23 release trazodone 100 mg tablet 100 mg PO ONCE PM 05/14/23 05/14/23 Previous Rx's Medication Instructions Recorded chlordiazepoxide HCl 25 mg capsule 50 mg (2 x 25 mg) PO TID #5 caps 05/16/23 folic acid 1 mg tablet 1 mg PO DAILY #30 tabs 05/16/23 multivitamin with folic acid 400 1 tab PO DAILY #30 tabs 05/16/23 mcg tablet (Tab-A-Fela) potassium chloride 20 mEq 20 meq PO DAILY #30 tabs 05/16/23 tablet,extended release(part/cryst) sulfamethoxazole 800 1 tab PO BID #4 tabs 05/16/23 mg-trimethoprim 160 mg tablet (Bactrim DS) thiamine HCl (vitamin B1) 100 mg 50 mg (1/2 x 100 mg) PO DAILY #30 05/16/23 tablet tabs Allergies Allergy/AdvReac Type Severity Reaction Status Date / Time aspirin Allergy Verified 05/14/23 20:22 naproxen [From Aleve] AdvReac Verified 05/27/23 13:50 Patient History Medical History Coagulopathy Pancytopenia Thrombocythemia Alcohol abuse Surgical History No history of previous surgery Family History Father Depression Mother No pertinent past medical history Social History household members: friend(s) Smoking Status: Former smoker alcohol intake: current Smoking Status: Former smoker alcohol intake frequency: 3 or more drinks per day Alcohol type: hard liquor Substance Use Type: does not use Exam Initial Vital Signs Initial Vital Signs: Vital Signs Pulse Oximetry 94 05/27/23 13:29 Course Orders Ordered: ED Orders 05/27/23 13:36 Ammonia (NH3) Stat Complete Blood Count AUTO DIFF Stat Comprehensive Metabolic Panel Stat ETOH [Ethanol (ETOH)] Stat Lipase Stat PTT Partial Thromboplastin Armando Stat Prothrombin Time INR Stat 05/27/23 13:47 XR chest 1V Stat Urine Drug Screen, Rapid Stat EKG-12 Lead Stat 05/27/23 16:38 Test Urine Stat UA Complete [Urinalysis and Microscopic] Stat 05/27/23 16:54 CT kidney ureter bladder (KUB) Stat 05/27/23 17:28 ETOH [Ethanol (ETOH)] Stat Sodium Chloride (Normal Saline 0.9%) 1,000 mls @ 1,000 mls/hr IV BOLUS ONE Stop: 05/27/23 18:50 Discontinued Medications Lactulose (Lactulose 20 Gm/30 Ml Solution) 20 gm PO NOW ONE Stop: 05/27/23 16:38 Last Admin: 05/27/23 16:49 Dose: 20 gm Documented By: CAROLYN Potassium Chloride (Potassium Chloride 20 Meq Tab) 40 meq PO NOW ONE Stop: 05/27/23 16:38 Last Admin: 05/27/23 16:50 Dose: 40 meq Documented By: CAROLYN Vital Signs Vital signs: Vital Signs - 8 hr 05/27/23 13:29 05/27/23 13:30 05/27/23 13:30 Temperature Pulse Rate 73 Respiratory Rate Blood Pressure 136/74 Pulse Oximetry 94 99 Oxygen Delivery Method 05/27/23 13:37 05/27/23 14:00 05/27/23 14:00 Temperature 97.7 F Pulse Rate 74 72 Respiratory Rate 18 18 Blood Pressure 136/74 119/68 Pulse Oximetry 99 98 Oxygen Delivery Method Room Air 05/27/23 14:30 05/27/23 14:30 05/27/23 15:00 Temperature Pulse Rate 70 74 Respiratory Rate 16 16 Blood Pressure 121/72 Pulse Oximetry 98 96 Oxygen Delivery Method 05/27/23 15:00 05/27/23 15:30 05/27/23 15:30 Temperature Pulse Rate 76 Respiratory Rate 15 Blood Pressure 116/73 121/75 Pulse Oximetry 95 Oxygen Delivery Method 05/27/23 16:00 05/27/23 16:00 05/27/23 16:35 Temperature Pulse Rate 77 85 Respiratory Rate 16 Blood Pressure 125/73 Pulse Oximetry 96 96 Oxygen Delivery Method 05/27/23 17:00 Temperature Pulse Rate 71 Respiratory Rate 18 Blood Pressure Pulse Oximetry 98 Oxygen Delivery Method MDM - Weakness Lab Data 05/27/23 13:36 05/27/23 13:36 Labs: Lab Results 05/27/23 Range/Units 13:36 WBC 5.7 (4.5-11.0) X10^3/uL RBC 3.75 L (4.0-5.2) X10^6/uL Hgb 11.1 L (12.0-16.0) g/dL Hct 33.0 L (36-46) % MCV 88.0 (80-100) fL MCH 29.6 (26-34) PG MCHC 33.6 (30-36) % RDW 32.0 H (11.6-14.8) % Plt Count 128 L (150-400) X10^3/uL Neut % (Auto) 75.0 (50-75) % Lymph % (Auto) 12.2 L (25-40) % Preble % (Auto) 12.0 (3-14) % Eos % (Auto) 0.5 L (2-4) % Baso % (Auto) 0.3 (0-2) % Neut # (Auto) 4300 (9333-5412) /uL Lymph # (Auto) 700 L (8674-2999) /uL Preble # (Auto) 700 (0-900) /uL Eos # (Auto) 0 (0-450) /uL Baso # (Auto) 0 (0-100) /uL RBC Morphology See below Anisocytosis 3+ H PT 16.2 H (9.4-12.5) SECONDS INR 1.4 H (0.9-1.3) APTT 39 H (25.1-36.5) SECONDS Sodium 138 (137-145) mmol/L Potassium 3.1 L (3.4-5.1) mmol/L Chloride 107 (98-107) mmol/L Carbon Dioxide 18 L (22-32) mmol/L BUN 16 (7-17) mg/dL Creatinine 2.70 H (0.52-1.04) mg/dL Estimated GFR 23 L (>60) mL/min BUN/Creatinine Ratio 5.9 L (6-22) Glucose 93 (70-100) mg/dL Calcium 9.4 (8.4-10.2) mg/dL Total Bilirubin 33.7 H (0.2-1.3) mg/dL AST 139 H (14-36) IU/L ALT 39 H (<35) IU/L Alkaline Phosphatase 177 H (38-126) U/L Ammonia 35 H (9-30) umol/L Total Protein 7.6 (6.3-8.2) g/dL Albumin 3.2 L (3.5-5.0) g/dL Globulin 4.4 H (1.7-4.1) g/dL Albumin/Globulin Ratio 0.7 L (1.0-2.8) Lipase 154 (23-300) U/L Ethyl Alcohol < 10 ( - 10) mg/dL Discharge Plan Departure Prescriptions: No Action citalopram 40 mg tablet 40 mg PO DAILY trazodone 100 mg tablet 100 mg PO ONCE PM pantoprazole 40 mg tablet,delayed release (DR/EC) 40 mg PO DAILY folic acid 1 mg Tablet 1 mg PO DAILY Qty: 30 0RF multivitamin with folic acid [Tab-A-Fela] 400 mcg Tablet 1 tab PO DAILY Qty: 30 0RF potassium chloride 20 mEq tablet,ER particles/crystals 20 meq PO DAILY Qty: 30 0RF thiamine HCl (vitamin B1) 100 mg tablet 50 mg PO DAILY Qty: 30 0RF sulfamethoxazole-trimethoprim [Bactrim DS] 800-160 mg tablet 1 tab PO BID Qty: 4 0RF chlordiazepoxide HCl 25 mg capsule 50 mg PO TID Qty: 5 0RF Rx Instructions: take 2 more doses on 05/16, 2 doses on 05/17, 1 dose of 05/18 and then stop Referrals: Silvia Kent, LISA, ASSISTANT TO THE VICE PRESIDENT [Primary Care Provider] -
--- NOTE | 2023-05-27 18:07 | PC.NURSE ---
Upon inserting urinary catheter, pt was found to have a tampon inserted, pt unable to remove tampon by herself and asked RN to help remove. Tampon removed by RN.
--- NOTE | 2023-05-27 18:09 | ED_ITS ---
HPI - Dizziness <Brooklyn Lopez, - Last Filed: 05/30/23 07:56> General Chief Complaint: Weakness Stated Complaint: Jaundice, fall T-2, dizzy Time Seen by Provider: 05/27/23 14:23 Source: patient, family, RN notes reviewed and old records reviewed Mode of arrival: Wheelchair Limitations: no limitations History of Present Illness HPI Narrative: 32-year-old female with history of alcohol use disorder with liver failure who presents with increasing jaundice and confusion. Patient states her color has been getting worse. She is felt dizzy but had no syncope. She is had some increased confusion. Denies chest pain or pressure, no shortness of breath. She denies any nausea or vomiting. States her bowel movements have been rhoda colored. Have alternated between solid and diarrhea like. She notes she is been peeing regularly but it has been very dark. She denies dysuria urgency or frequency. No swelling of her extremities. She states she is not had any alcohol since her hospitalization 05/15/2023. Patient states she is on prescriptions she was sent home on Librium when she is completed, Bactrim, folic acid, potassium, citalopram and vitamin B1 as well as Thera-M. No prior surgeries. No known drug allergies. No tobacco, alcohol so she quit 1122. States she was drinking a 5th daily. No recreational drugs. No IV drugs. Patient has been referred to GI at [facility] but has not seen them [id number] yet. She presents with a friend. Related Data Home Medications Medication Instructions Recorded Confirmed citalopram 40 mg tablet 40 mg PO DAILY 05/14/23 05/14/23 pantoprazole 40 mg tablet,delayed 40 mg PO DAILY 05/14/23 05/14/23 release trazodone 100 mg tablet 100 mg PO ONCE PM 05/14/23 05/14/23 Previous Rx's Medication Instructions Recorded chlordiazepoxide HCl 25 mg capsule 50 mg (2 x 25 mg) PO TID #5 caps 05/16/23 folic acid 1 mg tablet 1 mg PO DAILY #30 tabs 05/16/23 multivitamin with folic acid 400 1 tab PO DAILY #30 tabs 05/16/23 mcg tablet (Tab-A-Fela) potassium chloride 20 mEq 20 meq PO DAILY #30 tabs 11/23/23 tablet,extended release(part/cryst) sulfamethoxazole 800 1 tab PO BID #4 tabs 05/16/23 mg-trimethoprim 160 mg tablet (Bactrim DS) thiamine HCl (vitamin B1) 100 mg 50 mg (1/2 x 100 mg) PO DAILY #30 05/16/23 tablet tabs Allergies Allergy/AdvReac Type Severity Reaction Status Date / Time aspirin Allergy Verified 05/14/23 20:22 naproxen [From Aleve] AdvReac Verified 05/27/23 13:50 Review of Systems <Brooklyn Lopez DO - Last Filed: 05/30/23 07:56> Review of Systems ROS Unobtainable: All systems reviewed & are unremarkable except as noted in HPI and below Patient History <Brooklyn Lopez DO - Last Filed: 05/30/23 07:56> Medical History Coagulopathy Pancytopenia Thrombocythemia Alcohol abuse Surgical History No history of previous surgery Family History Father Depression Mother No pertinent past medical history Social History household members: friend(s) Smoking Status: Former smoker alcohol intake: current Smoking Status: Former smoker alcohol intake frequency: 3 or more drinks per day Alcohol type: hard liquor Substance Use Type: does not use Exam <Brooklyn Lopez DO - Last Filed: 05/30/23 07:56> Narrative Exam Narrative: GENERAL: Alert and oriented but mildly confused, jaundiced female HEENT: Head normocephalic, atraumatic, EOMI, positive for scleral icterus, pupils reactive, face symmetric, moist mucous membranes NECK: Supple, full range of motion CARDIOVASCULAR: Regular rate and rhythm without murmurs, rubs or gallops. RESPIRATORY: Breath sounds equal bilaterally, no wheezes rales or rhonchi. No tachypnea accessory muscle use. ABDOMEN: Soft, nontender. Mildly distended. Normoactive bowel sounds all 4 quadrants. No guarding or rebound, rigidity, no mass : No CVA tenderness EXTREMITIES: Normal range of motion, no clubbing or edema. Neurovascularly intact NEUROLOGICAL: Cranial nerves II through XII grossly intact. Moving all extremities SKIN: Warm, dry, no petechiae, no rashes or lesions. No rash or skin changes on patient's torso. Initial Vital Signs Initial Vital Signs: Vital Signs Pulse Oximetry 94 05/27/23 13:29 <Jewell Hightower DO - Last Filed: 05/31/23 06:53> Initial Vital Signs Initial Vital Signs: Vital Signs Pulse Oximetry 94 05/27/23 13:29 <Brooklyn Bowen MD - Last Filed: 05/28/23 22:19> Initial Vital Signs Initial Vital Signs: Vital Signs Pulse Oximetry 94 05/27/23 13:29 Course <Brooklyn Lopez DO - Last Filed: 05/30/23 07:56> Orders Ordered: Discontinued Medications Sodium Chloride (Normal Saline 0.9%) 1,000 mls @ 1,000 mls/hr IV BOLUS ONE Stop: 05/27/23 18:50 Last Infusion: 05/27/23 19:16 Dose: Infused Documented By: Admin: 05/27/23 18:15 Dose: 1,000 mls/hr Documented By: CAROLYN Sodium Chloride (Normal Saline 0.9%) 1,000 mls @ 1,000 mls/hr IV BOLUS ONE Stop: 05/27/23 19:02 Last Admin: 05/27/23 18:57 Dose: Not Given Documented By: CAROLYN Ceftriaxone Sodium 2,000 mg/ (Sodium Chloride) 100 mls @ 200 mls/hr IV NOW ONE Stop: 05/27/23 21:33 Last Infusion: 05/27/23 23:14 Dose: Infused Documented By: Admin: 05/27/23 22:37 Dose: 200 mls/hr Documented By: GILDARDO Metronidazole (Flagyl) 500 mg in 100 mls @ 100 mls/hr IV NOW ONE Stop: 05/27/23 22:31 Last Infusion: 05/27/23 23:00 Dose: Infused Documented By: Admin: 05/27/23 21:54 Dose: 100 mls/hr Documented By: GILDARDO Sodium Chloride (Normal Saline 0.9%) 1,000 mls @ 1,000 mls/hr IV BOLUS ONE Stop: 05/27/23 22:44 Last Infusion: 05/27/23 23:00 Dose: Infused Documented By: Admin: 05/27/23 21:54 Dose: 1,000 mls/hr Documented By: GILDARDO Sodium Chloride (Normal Saline 0.9%) 1,000 mls @ 84 mls/hr IV CONT KIAN Last Infusion: 05/28/23 22:17 Dose: Infused Documented By: Admin: 05/28/23 16:42 Dose: 84 mls/hr Documented By: Infusion: 05/28/23 14:29 Dose: Infused Documented By: Admin: 05/28/23 00:32 Dose: 84 mls/hr Documented By: GILDARDO Metronidazole (Flagyl) 500 mg in 100 mls @ 100 mls/hr IV Q8H KIAN Last Infusion: 05/28/23 16:42 Dose: Infused Documented By: Admin: 05/28/23 15:28 Dose: 100 mls/hr Documented By: Infusion: 05/28/23 09:28 Dose: Infused Documented By: Admin: 05/28/23 08:08 Dose: 100 mls/hr Documented By: CAROLYN Ceftriaxone Sodium 2,000 mg/ (Sodium Chloride) 100 mls @ 200 mls/hr IV DAILY [facility] Lactulose (Lactulose 20 Gm/30 Ml Solution) 20 gm PO NOW ONE Stop: 05/27/23 16:38 Last Admin: 05/27/23 16:49 Dose: 20 gm Documented By: CAROLYN Lactulose (Lactulose 20 Gm/30 Ml Solution) 20 gm PO NOW ONE Stop: 05/28/23 07:33 Last Admin: 05/28/23 08:08 Dose: 20 gm Documented By: CAROLYN Lorazepam (Lorazepam 2 Mg/Ml Inj) 0.5 mg IV NOW ONE Stop: 05/27/23 20:27 Last Admin: 05/27/23 20:35 Dose: 0.5 mg Documented By: GILDARDO Potassium Chloride (Potassium Chloride 20 Meq Tab) 40 meq PO NOW ONE Stop: 05/27/23 16:38 Last Admin: 05/27/23 16:50 Dose: 40 meq Documented By: CAROLYN Potassium Chloride (Potassium Chloride 20 Meq Tab) 40 meq PO NOW ONE Stop: 05/28/23 07:32 Last Admin: 05/28/23 08:08 Dose: 40 meq Documented By: CAROLYN Vital Signs Vital signs: Vital Signs - 8 hr 05/28/23 14:30 05/28/23 14:30 05/28/23 15:00 Temperature Pulse Rate 81 Respiratory Rate 17 Blood Pressure 124/76 122/74 Pulse Oximetry 95 Oxygen Delivery Method 05/28/23 15:00 05/28/23 15:30 05/28/23 15:30 Temperature Pulse Rate 83 83 Respiratory Rate 18 18 Blood Pressure 123/72 Pulse Oximetry 94 95 Oxygen Delivery Method Room Air Room Air 05/28/23 16:00 05/28/23 16:02 05/28/23 16:02 Temperature Pulse Rate 82 86 Respiratory Rate 22 Blood Pressure 141/88 H Pulse Oximetry 95 95 Oxygen Delivery Method 05/28/23 16:30 05/28/23 16:30 05/28/23 17:00 Temperature Pulse Rate 84 84 Respiratory Rate 19 19 Blood Pressure 125/67 Pulse Oximetry 95 94 Oxygen Delivery Method Room Air Room Air 05/28/23 17:00 05/28/23 17:30 05/28/23 17:30 Temperature Pulse Rate 82 Respiratory Rate 17 Blood Pressure 130/75 120/70 Pulse Oximetry 95 Oxygen Delivery Method 05/28/23 18:00 05/28/23 18:00 05/28/23 18:30 Temperature Pulse Rate 83 80 Respiratory Rate 21 19 Blood Pressure 120/64 Pulse Oximetry 95 95 Oxygen Delivery Method 05/28/23 18:50 05/28/23 18:50 05/28/23 19:00 Temperature Pulse Rate 79 85 Respiratory Rate 23 13 Blood Pressure 117/60 Pulse Oximetry 94 94 Oxygen Delivery Method Room Air Room Air 05/28/23 19:30 05/28/23 19:34 05/28/23 19:34 Temperature Pulse Rate 78 80 Respiratory Rate 22 20 Blood Pressure 111/67 Pulse Oximetry 95 95 Oxygen Delivery Method Room Air Room Air 05/28/23 20:00 05/28/23 20:00 05/28/23 20:30 Temperature Pulse Rate 81 84 Respiratory Rate 20 18 Blood Pressure 120/71 Pulse Oximetry 95 95 Oxygen Delivery Method Room Air Room Air 05/28/23 21:00 05/28/23 21:00 05/28/23 21:30 Temperature Pulse Rate 80 82 Respiratory Rate 18 19 Blood Pressure 128/76 Pulse Oximetry 95 96 Oxygen Delivery Method Room Air 05/28/23 22:00 05/28/23 22:12 Temperature 98.9 F Pulse Rate 79 Respiratory Rate 20 Blood Pressure 128/71 Pulse Oximetry 97 95 Oxygen Delivery Method Room Air Abdirizak Hightower DO - Last Filed: 05/31/23 06:53> Orders Ordered: Discontinued Medications Sodium Chloride (Normal Saline 0.9%) 1,000 mls @ 1,000 mls/hr IV BOLUS ONE Stop: 05/27/23 18:50 Last Infusion: 05/27/23 19:16 Dose: Infused Documented By: Admin: 05/27/23 18:15 Dose: 1,000 mls/hr Documented By: CAROLYN Sodium Chloride (Normal Saline 0.9%) 1,000 mls @ 1,000 mls/hr IV BOLUS ONE Stop: 05/27/23 19:02 Last Admin: 05/27/23 18:57 Dose: Not Given Documented By: CAROLYN Ceftriaxone Sodium 2,000 mg/ (Sodium Chloride) 100 mls @ 200 mls/hr IV NOW ONE Stop: 05/27/23 21:33 Last Infusion: 05/27/23 23:14 Dose: Infused Documented By: Admin: 05/27/23 22:37 Dose: 200 mls/hr Documented By: GILDARDO Metronidazole (Flagyl) 500 mg in 100 mls @ 100 mls/hr IV NOW ONE Stop: 05/27/23 22:31 Last Infusion: 05/27/23 23:00 Dose: Infused Documented By: Admin: 05/27/23 21:54 Dose: 100 mls/hr Documented By: GILDARDO Sodium Chloride (Normal Saline 0.9%) 1,000 mls @ 1,000 mls/hr IV BOLUS ONE Stop: 05/27/23 22:44 Last Infusion: 05/27/23 23:00 Dose: Infused Documented By: Admin: 05/27/23 21:54 Dose: 1,000 mls/hr Documented By: GILDARDO Sodium Chloride (Normal Saline 0.9%) 1,000 mls @ 84 mls/hr IV CONT KIAN Last Infusion: 05/28/23 22:17 Dose: Infused Documented By: Admin: 05/28/23 16:42 Dose: 84 mls/hr Documented By: Infusion: 05/28/23 14:29 Dose: Infused Documented By: Admin: 05/28/23 00:32 Dose: 84 mls/hr Documented By: GILDARDO Metronidazole (Flagyl) 500 mg in 100 mls @ 100 mls/hr IV Q8H KIAN Last Infusion: 05/28/23 16:42 Dose: Infused Documented By: Admin: 05/28/23 15:28 Dose: 100 mls/hr Documented By: Infusion: 05/28/23 09:28 Dose: Infused Documented By: Admin: 05/28/23 08:08 Dose: 100 mls/hr Documented By: CAROLYN Ceftriaxone Sodium 2,000 mg/ (Sodium Chloride) 100 mls @ 200 mls/hr IV DAILY [facility] Lactulose (Lactulose 20 Gm/30 Ml Solution) 20 gm PO NOW ONE Stop: 05/27/23 16:38 Last Admin: 05/27/23 16:49 Dose: 20 gm Documented By: CAROLYN Lactulose (Lactulose 20 Gm/30 Ml Solution) 20 gm PO NOW ONE Stop: 05/28/23 07:33 Last Admin: 05/28/23 08:08 Dose: 20 gm Documented By: CAROLYN Lorazepam (Lorazepam 2 Mg/Ml Inj) 0.5 mg IV NOW ONE Stop: 05/27/23 20:27 Last Admin: 05/27/23 20:35 Dose: 0.5 mg Documented By: GILDARDO Potassium Chloride (Potassium Chloride 20 Meq Tab) 40 meq PO NOW ONE Stop: 05/27/23 16:38 Last Admin: 05/27/23 16:50 Dose: 40 meq Documented By: CAROLYN Potassium Chloride (Potassium Chloride 20 Meq Tab) 40 meq PO NOW ONE Stop: 05/28/23 07:32 Last Admin: 05/28/23 08:08 Dose: 40 meq Documented By: CAROLYN Vital Signs Vital signs: Vital Signs - 8 hr 05/28/23 14:30 05/28/23 14:30 05/28/23 15:00 Temperature Pulse Rate 81 Respiratory Rate 17 Blood Pressure 124/76 122/74 Pulse Oximetry 95 Oxygen Delivery Method 05/28/23 15:00 05/28/23 15:30 05/28/23 15:30 Temperature Pulse Rate 83 83 Respiratory Rate 18 18 Blood Pressure 123/72 Pulse Oximetry 94 95 Oxygen Delivery Method Room Air Room Air 05/28/23 16:00 05/28/23 16:02 05/28/23 16:02 Temperature Pulse Rate 82 86 Respiratory Rate 22 Blood Pressure 141/88 H Pulse Oximetry 95 95 Oxygen Delivery Method 05/28/23 16:30 05/28/23 16:30 05/28/23 17:00 Temperature Pulse Rate 84 84 Respiratory Rate 19 19 Blood Pressure 125/67 Pulse Oximetry 95 94 Oxygen Delivery Method Room Air Room Air 05/28/23 17:00 05/28/23 17:30 05/28/23 17:30 Temperature Pulse Rate 82 Respiratory Rate 17 Blood Pressure 130/75 120/70 Pulse Oximetry 95 Oxygen Delivery Method 05/28/23 18:00 05/28/23 18:00 05/28/23 18:30 Temperature Pulse Rate 83 80 Respiratory Rate 21 19 Blood Pressure 120/64 Pulse Oximetry 95 95 Oxygen Delivery Method 05/28/23 18:50 05/28/23 18:50 05/28/23 19:00 Temperature Pulse Rate 79 85 Respiratory Rate 23 13 Blood Pressure 117/60 Pulse Oximetry 94 94 Oxygen Delivery Method Room Air Room Air 05/28/23 19:30 05/28/23 19:34 05/28/23 19:34 Temperature Pulse Rate 78 80 Respiratory Rate 22 20 Blood Pressure 111/67 Pulse Oximetry 95 95 Oxygen Delivery Method Room Air Room Air 05/28/23 20:00 05/28/23 20:00 05/28/23 20:30 Temperature Pulse Rate 81 84 Respiratory Rate 20 18 Blood Pressure 120/71 Pulse Oximetry 95 95 Oxygen Delivery Method Room Air Room Air 05/28/23 21:00 05/28/23 21:00 05/28/23 21:30 Temperature Pulse Rate 80 82 Respiratory Rate 18 19 Blood Pressure 128/76 Pulse Oximetry 95 96 Oxygen Delivery Method Room Air 05/28/23 22:00 05/28/23 22:12 Temperature 98.9 F Pulse Rate 79 Respiratory Rate 20 Blood Pressure 128/71 Pulse Oximetry 97 95 Oxygen Delivery Method Room Air <Brooklyn Bowen MD - Last Filed: 05/28/23 22:19> Orders Ordered: Discontinued Medications Sodium Chloride (Normal Saline 0.9%) 1,000 mls @ 1,000 mls/hr IV BOLUS ONE Stop: 05/27/23 18:50 Last Infusion: 05/27/23 19:16 Dose: Infused Documented By: Admin: 05/27/23 18:15 Dose: 1,000 mls/hr Documented By: CAROLYN Sodium Chloride (Normal Saline 0.9%) 1,000 mls @ 1,000 mls/hr IV BOLUS ONE Stop: 05/27/23 19:02 Last Admin: 05/27/23 18:57 Dose: Not Given Documented By: CAROLYN Ceftriaxone Sodium 2,000 mg/ (Sodium Chloride) 100 mls @ 200 mls/hr IV NOW ONE Stop: 05/27/23 21:33 Last Infusion: 05/27/23 23:14 Dose: Infused Documented By: Admin: 05/27/23 22:37 Dose: 200 mls/hr Documented By: GILDARDO Metronidazole (Flagyl) 500 mg in 100 mls @ 100 mls/hr IV NOW ONE Stop: 05/27/23 22:31 Last Infusion: 05/27/23 23:00 Dose: Infused Documented By: Admin: 05/27/23 21:54 Dose: 100 mls/hr Documented By: GILDARDO Sodium Chloride (Normal Saline 0.9%) 1,000 mls @ 1,000 mls/hr IV BOLUS ONE Stop: 05/27/23 22:44 Last Infusion: 05/27/23 23:00 Dose: Infused Documented By: Admin: 05/27/23 21:54 Dose: 1,000 mls/hr Documented By: GILDARDO Sodium Chloride (Normal Saline 0.9%) 1,000 mls @ 84 mls/hr IV CONT KIAN Last Infusion: 05/28/23 22:17 Dose: Infused Documented By: Admin: 05/28/23 16:42 Dose: 84 mls/hr Documented By: Infusion: 05/28/23 14:29 Dose: Infused Documented By: Admin: 05/28/23 00:32 Dose: 84 mls/hr Documented By: GILDARDO Metronidazole (Flagyl) 500 mg in 100 mls @ 100 mls/hr IV Q8H KIAN Last Infusion: 05/28/23 16:42 Dose: Infused Documented By: Admin: 05/28/23 15:28 Dose: 100 mls/hr Documented By: Infusion: 05/28/23 09:28 Dose: Infused Documented By: Admin: 05/28/23 08:08 Dose: 100 mls/hr Documented By: CAROLYN Ceftriaxone Sodium 2,000 mg/ (Sodium Chloride) 100 mls @ 200 mls/hr IV DAILY KIAN Lactulose (Lactulose 20 Gm/30 Ml Solution) 20 gm PO NOW ONE Stop: 05/27/23 16:38 Last Admin: 05/27/23 16:49 Dose: 20 gm Documented By: CAROLYN Lactulose (Lactulose 20 Gm/30 Ml Solution) 20 gm PO NOW ONE Stop: 05/28/23 07:33 Last Admin: 05/28/23 08:08 Dose: 20 gm Documented By: CAROLYN Lorazepam (Lorazepam 2 Mg/Ml Inj) 0.5 mg IV NOW ONE Stop: 05/27/23 20:27 Last Admin: 05/27/23 20:35 Dose: 0.5 mg Documented By: GILDARDO Potassium Chloride (Potassium Chloride 20 Meq Tab) 40 meq PO NOW ONE Stop: 05/27/23 16:38 Last Admin: 05/27/23 16:50 Dose: 40 meq Documented By: CAROLYN Potassium Chloride (Potassium Chloride 20 Meq Tab) 40 meq PO NOW ONE Stop: 05/28/23 07:32 Last Admin: 05/28/23 08:08 Dose: 40 meq Documented By: CAROLYN Vital Signs Vital signs: Vital Signs - 8 hr 05/28/23 14:30 05/28/23 14:30 05/28/23 15:00 Temperature Pulse Rate 81 Respiratory Rate 17 Blood Pressure 124/76 122/74 Pulse Oximetry 95 Oxygen Delivery Method 05/28/23 15:00 05/28/23 15:30 05/28/23 15:30 Temperature Pulse Rate 83 83 Respiratory Rate 18 18 Blood Pressure 123/72 Pulse Oximetry 94 95 Oxygen Delivery Method Room Air Room Air 05/28/23 16:00 05/28/23 16:02 05/28/23 16:02 Temperature Pulse Rate 82 86 Respiratory Rate 22 Blood Pressure 141/88 H Pulse Oximetry 95 95 Oxygen Delivery Method 05/28/23 16:30 05/28/23 16:30 05/28/23 17:00 Temperature Pulse Rate 84 84 Respiratory Rate 19 19 Blood Pressure 125/67 Pulse Oximetry 95 94 Oxygen Delivery Method Room Air Room Air 05/28/23 17:00 05/28/23 17:30 05/28/23 17:30 Temperature Pulse Rate 82 Respiratory Rate 17 Blood Pressure 130/75 120/70 Pulse Oximetry 95 Oxygen Delivery Method 05/28/23 18:00 05/28/23 18:00 05/28/23 18:30 Temperature Pulse Rate 83 80 Respiratory Rate 21 19 Blood Pressure 120/64 Pulse Oximetry 95 95 Oxygen Delivery Method 05/28/23 18:50 05/28/23 18:50 05/28/23 19:00 Temperature Pulse Rate 79 85 Respiratory Rate 23 13 Blood Pressure 117/60 Pulse Oximetry 94 94 Oxygen Delivery Method Room Air Room Air 05/28/23 19:30 05/28/23 19:34 05/28/23 19:34 Temperature Pulse Rate 78 80 Respiratory Rate 22 20 Blood Pressure 111/67 Pulse Oximetry 95 95 Oxygen Delivery Method Room Air Room Air 05/28/23 20:00 05/28/23 20:00 05/28/23 20:30 Temperature Pulse Rate 81 84 Respiratory Rate 20 18 Blood Pressure 120/71 Pulse Oximetry 95 95 Oxygen Delivery Method Room Air Room Air 05/28/23 21:00 05/28/23 21:00 05/28/23 21:30 Temperature Pulse Rate 80 82 Respiratory Rate 18 19 Blood Pressure 128/76 Pulse Oximetry 95 96 Oxygen Delivery Method Room Air 05/28/23 22:00 05/28/23 22:12 Temperature 98.9 F Pulse Rate 79 Respiratory Rate 20 Blood Pressure 128/71 Pulse Oximetry 97 95 Oxygen Delivery Method Room Air MDM - Dizziness <Brooklyn Lopez, DO - Last Filed: 05/30/23 07:56> Lab Data 05/28/23 16:15 05/28/23 16:15 Labs: Lab Results 05/27/23 05/27/23 05/27/23 Range/Units 13:36 18:00 19:28 WBC 5.7 (4.5-11.0) X10^3/uL RBC 3.75 L (4.0-5.2) X10^6/uL Hgb 11.1 L (12.0-16.0) g/dL Hct 33.0 L (36-46) % MCV 88.0 (80-100) fL MCH 29.6 (26-34) PG MCHC 33.6 (30-36) % RDW 32.0 H (11.6-14.8) % Plt Count 128 L (150-400) X10^3/uL Neut % (Auto) 75.0 (50-75) % Lymph % (Auto) 12.2 L (25-40) % [place] % (Auto) 12.0 (3-14) % Eos % (Auto) 0.5 L (2-4) % Baso % (Auto) 0.3 (0-2) % Neut # (Auto) 4300 (9117-4838) /uL Lymph # (Auto) 700 L (7386-4639) /uL [place] # (Auto) 700 (0-900) /uL Eos # (Auto) 0 (0-450) /uL Baso # (Auto) 0 (0-100) /uL Total Counted Seg Neutrophils % (38-70) % Lymphocytes % (Manual) (25-45) % Monocytes % (Manual) (2-11) % Eosinophils % (Manual) (2-4) % Basophils % (Manual) (0-1) % Neutrophils # (Manual) (2675-4126) /uL RBC Morphology See below Anisocytosis 3+ H Microcytosis Macrocytosis Target Cells Tear Drop Cells Stomatocytes Schistocytes PT 16.2 H (9.4-12.5) SECONDS INR 1.4 H (0.9-1.3) APTT 39 H (25.1-36.5) SECONDS Sodium 138 137 (137-145) mmol/L Potassium 3.1 L 3.0 L (3.4-5.1) mmol/L Chloride 107 113 H (98-107) mmol/L Carbon Dioxide 18 L 16 L (22-32) mmol/L BUN 16 14 (7-17) mg/dL Creatinine 2.70 H 2.21 H (0.52-1.04) mg/dL Estimated GFR 23 L 29 L (>60) mL/min BUN/Creatinine Ratio 5.9 L 6.3 (6-22) Glucose 93 78 (70-100) mg/dL Lactate 1.1 0.9 (0.7-2.1) mmol/L Calcium 9.4 7.9 L (8.4-10.2) mg/dL Total Bilirubin 33.7 H 31.2 H (0.2-1.3) mg/dL AST 139 H 116 H (14-36) IU/L ALT 39 H 30 (<35) IU/L Alkaline Phosphatase 177 H 126 (38-126) U/L Ammonia 35 H (9-30) umol/L Total Protein 7.6 6.0 L (6.3-8.2) g/dL Albumin 3.2 L 2.5 L (3.5-5.0) g/dL Globulin 4.4 H 3.5 (1.7-4.1) g/dL Albumin/Globulin Ratio 0.7 L 0.7 L (1.0-2.8) Lipase 154 (23-300) U/L Procalcitonin 0.71 H (<0.5) ng/mL Urine Color Yellow Urine Appearance Clear Urine pH 5.5 (4.5-8.0) Ur Specific [place] 1.010 (1.000-1.035) Urine Protein Negative (Negative) Urine Glucose (UA) Trace H (Negative) g/dL Urine Ketones Negative (NEGATIVE) Urine Occult Blood Negative (Negative) Urine Nitrate Negative (Negative) Urine Bilirubin 3+ H (NEGATIVE) Ur Bilirubin Confirm (Negative) Urine Urobilinogen 1.0 (0.2) E.U./dL Ur Leukocyte Esterase Negative (NEGATIVE) Urine RBC None seen (0-5/HPF) Urine WBC 0-1/hpf (0-5/HPF) Ur Squamous Epith Cells None seen (0-5/HPF) Amorphous Sediment 1+ Urine Bacteria None seen (None) Ur Culture Indicated? Cult not indicated Urine Test Negative (Negative) U Opiates 300ng/mL cut Negative (Negative) Ur Oxycodone Screen Negative (Negative) Urine Methadone Screen Negative (Negative) Ur Barbiturates Screen Positive H (Negative) U Tricyclic Antidepress Negative (Negative) Ur Phencyclidine Scrn Negative (Negative) Ur Amphetamines Screen Negative (Negative) U Methamphetamines Scrn Negative (Negative) Ur MDMA Scrn (Ecstasy) Negative (Negative) U Benzodiazepines Scrn Positive H (Negative) Urine Cocaine Screen Negative (Negative) U Marijuana (THC) Screen Negative (Negative) Ethyl Alcohol < 10 ( - 10) mg/dL A.calcoaceticus-baumannii cmplx PCR (Not Detect) Bacteroides fragilis (Not Detect) Wendy albicans (PCR) (Not Detect) Wendy auris (PCR) (Not Detect) C. glabrata (PCR) (Not Detect) C. krusei (PCR) (Not Detect) C. parapsilosis (PCR) (Not Detect) C. tropicalis (PCR) (Not Detect) C. neoform/gattii (PCR) (Not Detect) Enterobacterales (PCR) (Not Detect) E. cloacae complex PCR (Not Detect) Enterococc faecalis PCR (Not Detect) Enterococc faecium PCR (Not Detect) E. coli (PCR) (Not Detect) H. influenzae (PCR) (Not Detect) Klebsiella aerogenes (PCR) (Not Detect) Klebsiella oxytoca PCR (Not Detect) Klebsiella pneumoniae (Not Detect) List. monocytogenes PCR (Not Detect) N. meningitidis (PCR) (Not Detect) Proteus species (PCR) (Not Detect) Salmonella spp. (PCR) (Not Detect) Serratia marcescens PCR (Not Detect) Staphylococcus sp PCR (Not Detect) Staph aureus (PCR) (Not Detect) mecA/C & MREJ Resist Gene (Not Detect) mecA/C-Methicil Resis Gene (Not Detect) mcr-1 Colistin Res Gene PCR (Not Detect) Staph epidermidis (PCR) (Not Detect) Staph lugdunensis PCR (Not Detect) S. maltophilia (PCR) (Not Detect) Streptococcus sp PCR (Not Detect) Group A Strep (PCR) (Not Detect) Strep agalactiae (PCR) (Not Detect) Strep pneumoniae (PCR) (Not Detect) P. aeruginosa (PCR) (Not Detect) Paul/B-Vanco Res Genes (Not Detect) blaIMP Car res Gene PCR (Not Detect) KPC-Carbap Res Gene PCR (Not Detect) blaNDM Car Res Gene PCR (Not Detect) OXA-48 Carbapenem Resis Gene (PCR) (Not Detect) blaVIM Car Res Gene PCR (Not Detect) CTX-M Gene Resistance (PCR) (Not Detect) 05/28/23 05/28/23 05/28/23 Range/Units 05:15 16:15 17:50 WBC 4.9 3.8 L (4.5-11.0) X10^3/uL RBC 3.30 L 3.24 L (4.0-5.2) X10^6/uL Hgb 9.9 L 9.6 L (12.0-16.0) g/dL Hct 29.5 L 28.6 L (36-46) % MCV 89.1 88.2 (80-100) fL MCH 29.8 29.5 (26-34) PG MCHC 33.5 33.5 (30-36) % RDW 31.4 H 31.1 H (11.6-14.8) % Plt Count 102 L 99 L (150-400) X10^3/uL Neut % (Auto) Not Reportable 78.0 H (50-75) % Lymph % (Auto) Not Reportable 10.8 L (25-40) % [place] % (Auto) Not Reportable 9.6 (3-14) % Eos % (Auto) Not Reportable 0.6 L (2-4) % Baso % (Auto) Not Reportable 1.0 (0-2) % Neut # (Auto) 3000 (9811-3930) /uL Lymph # (Auto) Not Reportable 400 L (4578-9531) /uL [place] # (Auto) Not Reportable 400 (0-900) /uL Eos # (Auto) 0 (0-450) /uL Baso # (Auto) Not Reportable 0 (0-100) /uL Total Counted 100 Seg Neutrophils % 78.0 H (38-70) % Lymphocytes % (Manual) 9.0 L (25-45) % Monocytes % (Manual) 8.0 (2-11) % Eosinophils % (Manual) 1.0 L (2-4) % Basophils % (Manual) 4.0 H (0-1) % Neutrophils # (Manual) 3822 (6156-1332) /uL RBC Morphology See below See below Anisocytosis 3+ H 3+ H Microcytosis 2+ H 2+ H Macrocytosis 1+ H 1+ H Target Cells 2+ H 2+ H Tear Drop Cells 1+ H 1+ H Stomatocytes 1+ H Schistocytes 1+ H PT (9.4-12.5) SECONDS INR (0.9-1.3) APTT (25.1-36.5) SECONDS Sodium 138 136 L (137-145) mmol/L Potassium 3.3 L 3.5 (3.4-5.1) mmol/L Chloride 114 H 114 H (98-107) mmol/L Carbon Dioxide 13 L 15 L (22-32) mmol/L BUN 14 15 (7-17) mg/dL Creatinine 2.36 H 2.18 H (0.52-1.04) mg/dL Estimated GFR 27 L 30 L (>60) mL/min BUN/Creatinine Ratio 5.9 L 6.9 (6-22) Glucose 78 86 (70-100) mg/dL Lactate (0.7-2.1) mmol/L Calcium 8.7 8.8 (8.4-10.2) mg/dL Total Bilirubin 30.9 H 31.1 H (0.2-1.3) mg/dL AST 124 H 114 H (14-36) IU/L ALT 35 H 31 (<35) IU/L Alkaline Phosphatase 142 H 130 H (38-126) U/L Ammonia 40 H (9-30) umol/L Total Protein 6.5 6.3 (6.3-8.2) g/dL Albumin 2.7 L 2.6 L (3.5-5.0) g/dL Globulin 3.8 3.7 (1.7-4.1) g/dL Albumin/Globulin Ratio 0.7 L 0.7 L (1.0-2.8) Lipase (23-300) U/L Procalcitonin (<0.5) ng/mL Urine Color Urine Appearance Urine pH (4.5-8.0) Ur Specific [place] (1.000-1.035) Urine Protein (Negative) Urine Glucose (UA) (Negative) g/dL Urine Ketones (NEGATIVE) Urine Occult Blood (Negative) Urine Nitrate (Negative) Urine Bilirubin (NEGATIVE) Ur Bilirubin Confirm (Negative) Urine Urobilinogen (0.2) E.U./dL Ur Leukocyte Esterase (NEGATIVE) Urine RBC (0-5/HPF) Urine WBC (0-5/HPF) Ur Squamous Epith Cells (0-5/HPF) Amorphous Sediment Urine Bacteria (None) Ur Culture Indicated? Urine Test (Negative) U Opiates 300ng/mL cut (Negative) Ur Oxycodone Screen (Negative) Urine Methadone Screen (Negative) Ur Barbiturates Screen (Negative) U Tricyclic Antidepress (Negative) Ur Phencyclidine Scrn (Negative) Ur Amphetamines Screen (Negative) U Methamphetamines Scrn (Negative) Ur MDMA Scrn (Ecstasy) (Negative) U Benzodiazepines Scrn (Negative) Urine Cocaine Screen (Negative) U Marijuana (THC) Screen (Negative) Ethyl Alcohol ( - 10) mg/dL A.calcoaceticus-baumannii cmplx PCR Not detected (Not Detect) Bacteroides fragilis Not detected (Not Detect) Wendy albicans (PCR) Not detected (Not Detect) Wendy auris (PCR) Not detected (Not Detect) C. glabrata (PCR) Not detected (Not Detect) C. krusei (PCR) Not detected (Not Detect) C. parapsilosis (PCR) Not detected (Not Detect) C. tropicalis (PCR) Not detected (Not Detect) C. neoform/gattii (PCR) Not detected (Not Detect) Enterobacterales (PCR) Not detected (Not Detect) E. cloacae complex PCR Not detected (Not Detect) Enterococc faecalis PCR Not detected (Not Detect) Enterococc faecium PCR Not detected (Not Detect) E. coli (PCR) Not detected (Not Detect) H. influenzae (PCR) Not detected (Not Detect) Klebsiella aerogenes (PCR) Not detected (Not Detect) Klebsiella oxytoca PCR Not detected (Not Detect) Klebsiella pneumoniae Not detected (Not Detect) List. monocytogenes PCR Not detected (Not Detect) N. meningitidis (PCR) Not detected (Not Detect) Proteus species (PCR) Not detected (Not Detect) Salmonella spp. (PCR) Not detected (Not Detect) Serratia marcescens PCR Not detected (Not Detect) Staphylococcus sp PCR Detected (Not Detect) Staph aureus (PCR) Not detected (Not Detect) mecA/C & MREJ Resist Gene Not applicable (Not Detect) mecA/C-Methicil Resis Gene Not applicable (Not Detect) mcr-1 Colistin Res Gene PCR Not applicable (Not Detect) Staph epidermidis (PCR) Not detected (Not Detect) Staph lugdunensis PCR Not detected (Not Detect) S. maltophilia (PCR) Not detected (Not Detect) Streptococcus sp PCR Not detected (Not Detect) Group A Strep (PCR) Not detected (Not Detect) Strep agalactiae (PCR) Not detected (Not Detect) Strep pneumoniae (PCR) Not detected (Not Detect) P. aeruginosa (PCR) Not detected (Not Detect) Paul/B-Vanco Res Genes Not applicable (Not Detect) blaIMP Car res Gene PCR Not applicable (Not Detect) KPC-Carbap Res Gene PCR Not applicable (Not Detect) blaNDM Car Res Gene PCR Not applicable (Not Detect) OXA-48 Carbapenem Resis Gene (PCR) Not applicable (Not Detect) blaVIM Car Res Gene PCR Not applicable (Not Detect) CTX-M Gene Resistance (PCR) Not applicable (Not Detect) Imaging Data Chest x-ray: Radiologist's Impression: [address] [address] XRay Report Signed Patient: Kaitlin Chase MR#: [id number] : 1990 Acct:[id number] Age/Sex: 32 / F Date of Service: 05/27/23 Loc: ED Accession Number: [id number] Procedure: XR chest 1V Ordering Provider: Brooklyn Lopez D.O. PROCEDURE: XR CHEST 1V INDICATIONS: altered mental status TECHNIQUE: One view of the chest was acquired. COMPARISON: None. FINDINGS: Surgical changes and devices: None. Lungs and pleura: Lungs are clear. No pleural effusions or pneumothorax. Mediastinum: Mediastinal contours appear normal. Heart size is normal. Bones and chest wall: No suspicious bony lesions. Overlying soft tissues appear unremarkable. IMPRESSION: No acute cardiopulmonary abnormality is seen. Dictated by: Jessica Valentine M.D. on 05/27/2023 at 15:12 Approved by: Jessica Valentine M.D. on 05/27/2023 at 15:12 CT scan - abdomen/pelvis: Radiologist's Impression: [place] [address] CT Scan Report Signed Patient: Kaitlin Chase MR#: [id number] : 1990 Acct:[id number] Age/Sex: 32 / F Date of Service: 05/27/23 Loc: ED Accession Number: [id number] Procedure: CT kidney ureter bladder (KUB) Ordering Provider: Brooklyn Lopez D.O. PROCEDURE: CT KIDNEY URETER BLADDER (KUB) INDICATIONS: jaundice, renal failiure TECHNIQUE: Axial sections were acquired from the lung bases to the pubic symphysis. Coronal and sagittal reformats were performed. For radiation dose reduction, the following was used: automated exposure control, adjustment of mA and/or kV according to patient size. COMPARISON: None. FINDINGS: Image quality: Excellent. Lung bases: Bibasilar scarring/atelectasis is seen. Heart: No significant findings. URINARY: Right Kidney: No stones or hydronephrosis. Right Ureter: No hydroureter. Left Kidney: No stones or hydronephrosis. Left Ureter: No hydroureter. Bladder: Normal wall thickness. No stones. ABDOMEN: Liver: Lobulated liver contour is seen with diffusely decreased liver parenchymal density. Gallbladder: Multiple small calcified stones are seen in dependent portion of gallbladder lumen. No definite gallbladder wall thickening or pericholecystic fluid. Gallbladder is contracted. Biliary ducts: No biliary dilation. Pancreas: No ductal dilation. Spleen: There is splenomegaly, no discrete splenic lesion. Adrenal Glands: No adrenal nodules. Stomach and Bowel: Examination of unopacified bowel loops shows diffuse colonic wall thickening with mild pericolonic fat stranding. No gross small bowel or gastric wall thickening is seen. Appendix is visualized in right lower quadrant and is normal in size and overall appearance. No abscess collection. Peritoneum: No abnormal intraperitoneal fluid. No free air. Ventral Wall: No hernia. Abdominal Nodes: No enlarged retroperitoneal or mesenteric lymph nodes. Vessels: Aorta and inferior vena cava are normal in size. PELVIS: Pelvic Organs: Hyperdensity within endometrium is seen which may represent endometrial blood suggest clinical correlation. No gross abnormality is seen in bilateral adnexa.. Pelvic Nodes: Unremarkable. Miscellaneous: No inguinal hernias are seen. Bones: No suspicious bony lesions. No acute vertebral body compression fracture. IMPRESSION: 1. No obstructing renal stones or hydronephrosis. No hydroureter. Normal appearing urinary bladder. 2. Cirrhotic appearing liver. No discrete hepatic mass. Splenomegaly, no discrete splenic lesion. 3. Contracted gallbladder with multiple gallstones. No definite CT evidence of acute cholecystitis. No biliary ductal dilatation. 4. Diffuse colonic wall thickening and edema with pericolonic fat stranding concerning for infectious inflammatory colitis. No abscess collection. No free fluid or free air. Normal appendix. 5. Possible blood within endometrial cavity suggest clinical correlation. Dictated by: Zenon Mora M.D. on 05/27/2023 at 17:53 Approved by: Zenon Mora M.D. on 05/27/2023 at 18:01 ECG Data Attestation: I personally reviewed and interpreted this ECG as follows: Interpretation: Sinus rhythm rate of 70 [place] of 2 wolf QRS of 100 QTC 473. Nonspecific change. First-degree AV block. MDM Narrative Medical decision making narrative: 32-year-old female with recent alcohol abuse has recently stopped in the last weeks. Patient is quite jaundiced, she has normal white count, hemoglobin 11 but platelets are 128 actually improved from most recent visit INR is 1.4, creatinine today is 2.7 she was 0.59 on her last visit with a potassium of 3.1, sodium is 138 glucose is 93 with CO2 of 18. Bilirubin is 33 up from 15, AST is 139 ALT is 39 alk-phos 177, ammonia levels 35 albumin 3.2. ETOH is negative. UDS positive for barbiturates and benzodiazepines but this maybe related to her recent Librium prescription and likely receive phenobarbital on her last hospitalization. CT KUB showed lobulated liver changes with diffusely decreased liver parenchymal density multiple small calcified stones in the gallbladder but no wall thickening or fluid no biliary dilation or ductal dilation, patient does not have any abnormal intraperitoneal fluid or free air. Patient has some diffuse colonic wall thickening with mild pericolonic fat stranding. No hernia, hyperdensity in the endometrium suggesting blood. Patient has currently been on her period. Patient's MELD score is 33points with 52.6% 3 month mortality. I reviewed patient's findings today. UA shows trace glucose, no ketones, no blood, no nitrates 3+ bilirubin otherwise 1 WBC but no other leukocyte esterase, no RBCs or bacteria. Discussed with patient she did have 350 mL out Gardner catheter was given 1 L fluid bolus we will continue with hydration gently. Gardner catheter was placed for strict I's and O's. UDS positive for benzodiazepines and barbiturates but patient has been on Librium recently. Patient would likely benefit from transfer for Nephrology and hepatology/GI. Patient signed out to Dr. Hightower while awaiting potential transfer. Dr. Hightower-patient signed out to me by Dr. Lopez I have seen evaluated patient myself. She is awake alert but confused. Very jaundiced. No significant tremors or sign of withdrawal. She is found to have worsening bilirubin in renal function concern for hepatorenal syndrome. CT does show multiple small gallstones she is minimal tender tenderness or right upper quadrant. However with acute change in her bilirubin MRCP was done to rule out choledocholithiasis. MRCP is negative for choledocholithiasis. Discussed case with [facility] liver transplant doctor who reports that she is not a liver transplant candidate and does not need to be transferred for this. Spoke with Dr. Fernandez at [facility] who recommended starting her on antibiotics making sure that there is not an infection. Urinalysis negative no leukocytosis afebrile, procalcitonin 0.71, lactate 1.1 and then 0.9. Low suspicion for infection. Renal function improved after IV fluids Patient on multiple list critical bed shortage. She remained stable awaiting for placement for higher level of care due to worsening liver function high MELD score. 05/28/23 John patient signed back out to myself. We did contact [facility] this morning. Patient appears stable. She notes she would quite a bit of difficulty moving around safely. We will continue lactulose repeated her oral potassium supplementation slightly improved but still low continue with very slow fluids patient is eating and drinking with the diet. Patient's Flagyl and Rocephin were ordered to be continued. Discussed with patient and friend at bedside we will continue for transfer. SPoke with Dr. Chapin at [facility], accepts for PCU bed. They will have to evaluate for PCU bed status unsure if they have this availability. Patient signed out to Dr. Bowen while awaiting placement. [facility] has been in contact. Patient has antibiotics ordered to continue. Labs were repeated this evening appear fairly stable. Ammonia has slightly increased. <Jewell Hightower, DO - Last Filed: 05/31/23 06:53> Lab Data Labs: Lab Results 05/27/23 05/27/23 05/27/23 Range/Units 13:36 18:00 19:28 WBC 5.7 (4.5-11.0) X10^3/uL RBC 3.75 L (4.0-5.2) X10^6/uL Hgb 11.1 L (12.0-16.0) g/dL Hct 33.0 L (36-46) % MCV 88.0 (80-100) fL MCH 29.6 (26-34) PG MCHC 33.6 (30-36) % RDW 32.0 H (11.6-14.8) % Plt Count 128 L (150-400) X10^3/uL Neut % (Auto) 75.0 (50-75) % Lymph % (Auto) 12.2 L (25-40) % [place] % (Auto) 12.0 (3-14) % Eos % (Auto) 0.5 L (2-4) % Baso % (Auto) 0.3 (0-2) % Neut # (Auto) 4300 (9032-4059) /uL Lymph # (Auto) 700 L (7432-9737) /uL [place] # (Auto) 700 (0-900) /uL Eos # (Auto) 0 (0-450) /uL Baso # (Auto) 0 (0-100) /uL Total Counted Seg Neutrophils % (38-70) % Lymphocytes % (Manual) (25-45) % Monocytes % (Manual) (2-11) % Eosinophils % (Manual) (2-4) % Basophils % (Manual) (0-1) % Neutrophils # (Manual) (3311-3614) /uL RBC Morphology See below Anisocytosis 3+ H Microcytosis Macrocytosis Target Cells Tear Drop Cells Stomatocytes Schistocytes PT 16.2 H (9.4-12.5) SECONDS INR 1.4 H (0.9-1.3) APTT 39 H (25.1-36.5) SECONDS Sodium 138 137 (137-145) mmol/L Potassium 3.1 L 3.0 L (3.4-5.1) mmol/L Chloride 107 113 H (98-107) mmol/L Carbon Dioxide 18 L 16 L (22-32) mmol/L BUN 16 14 (7-17) mg/dL Creatinine 2.70 H 2.21 H (0.52-1.04) mg/dL Estimated GFR 23 L 29 L (>60) mL/min BUN/Creatinine Ratio 5.9 L 6.3 (6-22) Glucose 93 78 (70-100) mg/dL Lactate 1.1 0.9 (0.7-2.1) mmol/L Calcium 9.4 7.9 L (8.4-10.2) mg/dL Total Bilirubin 33.7 H 31.2 H (0.2-1.3) mg/dL AST 139 H 116 H (14-36) IU/L ALT 39 H 30 (<35) IU/L Alkaline Phosphatase 177 H 126 (38-126) U/L Ammonia 35 H (9-30) umol/L Total Protein 7.6 6.0 L (6.3-8.2) g/dL Albumin 3.2 L 2.5 L (3.5-5.0) g/dL Globulin 4.4 H 3.5 (1.7-4.1) g/dL Albumin/Globulin Ratio 0.7 L 0.7 L (1.0-2.8) Lipase 154 (23-300) U/L Procalcitonin 0.71 H (<0.5) ng/mL Urine Color Yellow Urine Appearance Clear Urine pH 5.5 (4.5-8.0) Ur Specific [place] 1.010 (1.000-1.035) Urine Protein Negative (Negative) Urine Glucose (UA) Trace H (Negative) g/dL Urine Ketones Negative (NEGATIVE) Urine Occult Blood Negative (Negative) Urine Nitrate Negative (Negative) Urine Bilirubin 3+ H (NEGATIVE) Ur Bilirubin Confirm (Negative) Urine Urobilinogen 1.0 (0.2) E.U./dL Ur Leukocyte Esterase Negative (NEGATIVE) Urine RBC None seen (0-5/HPF) Urine WBC 0-1/hpf (0-5/HPF) Ur Squamous Epith Cells None seen (0-5/HPF) Amorphous Sediment 1+ Urine Bacteria None seen (None) Ur Culture Indicated? Cult not indicated Urine Test Negative (Negative) U Opiates 300ng/mL cut Negative (Negative) Ur Oxycodone Screen Negative (Negative) Urine Methadone Screen Negative (Negative) Ur Barbiturates Screen Positive H (Negative) U Tricyclic Antidepress Negative (Negative) Ur Phencyclidine Scrn Negative (Negative) Ur Amphetamines Screen Negative (Negative) U Methamphetamines Scrn Negative (Negative) Ur MDMA Scrn (Ecstasy) Negative (Negative) U Benzodiazepines Scrn Positive H (Negative) Urine Cocaine Screen Negative (Negative) U Marijuana (THC) Screen Negative (Negative) Ethyl Alcohol < 10 ( - 10) mg/dL A.calcoaceticus-baumannii cmplx PCR (Not Detect) Bacteroides fragilis (Not Detect) Wendy albicans (PCR) (Not Detect) Wendy auris (PCR) (Not Detect) C. glabrata (PCR) (Not Detect) C. krusei (PCR) (Not Detect) C. parapsilosis (PCR) (Not Detect) C. tropicalis (PCR) (Not Detect) C. neoform/gattii (PCR) (Not Detect) Enterobacterales (PCR) (Not Detect) E. cloacae complex PCR (Not Detect) Enterococc faecalis PCR (Not Detect) Enterococc faecium PCR (Not Detect) E. coli (PCR) (Not Detect) H. influenzae (PCR) (Not Detect) Klebsiella aerogenes (PCR) (Not Detect) Klebsiella oxytoca PCR (Not Detect) Klebsiella pneumoniae (Not Detect) List. monocytogenes PCR (Not Detect) N. meningitidis (PCR) (Not Detect) Proteus species (PCR) (Not Detect) Salmonella spp. (PCR) (Not Detect) Serratia marcescens PCR (Not Detect) Staphylococcus sp PCR (Not Detect) Staph aureus (PCR) (Not Detect) mecA/C & MREJ Resist Gene (Not Detect) mecA/C-Methicil Resis Gene (Not Detect) mcr-1 Colistin Res Gene PCR (Not Detect) Staph epidermidis (PCR) (Not Detect) Staph lugdunensis PCR (Not Detect) S. maltophilia (PCR) (Not Detect) Streptococcus sp PCR (Not Detect) Group A Strep (PCR) (Not Detect) Strep agalactiae (PCR) (Not Detect) Strep pneumoniae (PCR) (Not Detect) P. aeruginosa (PCR) (Not Detect) Paul/B-Vanco Res Genes (Not Detect) blaIMP Car res Gene PCR (Not Detect) KPC-Carbap Res Gene PCR (Not Detect) blaNDM Car Res Gene PCR (Not Detect) OXA-48 Carbapenem Resis Gene (PCR) (Not Detect) blaVIM Car Res Gene PCR (Not Detect) CTX-M Gene Resistance (PCR) (Not Detect) 05/28/23 05/28/23 05/28/23 Range/Units 05:15 16:15 17:50 WBC 4.9 3.8 L (4.5-11.0) X10^3/uL RBC 3.30 L 3.24 L (4.0-5.2) X10^6/uL Hgb 9.9 L 9.6 L (12.0-16.0) g/dL Hct 29.5 L 28.6 L (36-46) % MCV 89.1 88.2 (80-100) fL MCH 29.8 29.5 (26-34) PG MCHC 33.5 33.5 (30-36) % RDW 31.4 H 31.1 H (11.6-14.8) % Plt Count 102 L 99 L (150-400) X10^3/uL Neut % (Auto) Not Reportable 78.0 H (50-75) % Lymph % (Auto) Not Reportable 10.8 L (25-40) % [place] % (Auto) Not Reportable 9.6 (3-14) % Eos % (Auto) Not Reportable 0.6 L (2-4) % Baso % (Auto) Not Reportable 1.0 (0-2) % Neut # (Auto) 3000 (9968-9010) /uL Lymph # (Auto) Not Reportable 400 L (0072-1414) /uL [place] # (Auto) Not Reportable 400 (0-900) /uL Eos # (Auto) 0 (0-450) /uL Baso # (Auto) Not Reportable 0 (0-100) /uL Total Counted 100 Seg Neutrophils % 78.0 H (38-70) % Lymphocytes % (Manual) 9.0 L (25-45) % Monocytes % (Manual) 8.0 (2-11) % Eosinophils % (Manual) 1.0 L (2-4) % Basophils % (Manual) 4.0 H (0-1) % Neutrophils # (Manual) 3822 (7103-1737) /uL RBC Morphology See below See below Anisocytosis 3+ H 3+ H Microcytosis 2+ H 2+ H Macrocytosis 1+ H 1+ H Target Cells 2+ H 2+ H Tear Drop Cells 1+ H 1+ H Stomatocytes 1+ H Schistocytes 1+ H PT (9.4-12.5) SECONDS INR (0.9-1.3) APTT (25.1-36.5) SECONDS Sodium 138 136 L (137-145) mmol/L Potassium 3.3 L 3.5 (3.4-5.1) mmol/L Chloride 114 H 114 H (98-107) mmol/L Carbon Dioxide 13 L 15 L (22-32) mmol/L BUN 14 15 (7-17) mg/dL Creatinine 2.36 H 2.18 H (0.52-1.04) mg/dL Estimated GFR 27 L 30 L (>60) mL/min BUN/Creatinine Ratio 5.9 L 6.9 (6-22) Glucose 78 86 (70-100) mg/dL Lactate (0.7-2.1) mmol/L Calcium 8.7 8.8 (8.4-10.2) mg/dL Total Bilirubin 30.9 H 31.1 H (0.2-1.3) mg/dL AST 124 H 114 H (14-36) IU/L ALT 35 H 31 (<35) IU/L Alkaline Phosphatase 142 H 130 H (38-126) U/L Ammonia 40 H (9-30) umol/L Total Protein 6.5 6.3 (6.3-8.2) g/dL Albumin 2.7 L 2.6 L (3.5-5.0) g/dL Globulin 3.8 3.7 (1.7-4.1) g/dL Albumin/Globulin Ratio 0.7 L 0.7 L (1.0-2.8) Lipase (23-300) U/L Procalcitonin (<0.5) ng/mL Urine Color Urine Appearance Urine pH (4.5-8.0) Ur Specific [place] (1.000-1.035) Urine Protein (Negative) Urine Glucose (UA) (Negative) g/dL Urine Ketones (NEGATIVE) Urine Occult Blood (Negative) Urine Nitrate (Negative) Urine Bilirubin (NEGATIVE) Ur Bilirubin Confirm (Negative) Urine Urobilinogen (0.2) E.U./dL Ur Leukocyte Esterase (NEGATIVE) Urine RBC (0-5/HPF) Urine WBC (0-5/HPF) Ur Squamous Epith Cells (0-5/HPF) Amorphous Sediment Urine Bacteria (None) Ur Culture Indicated? Urine Test (Negative) U Opiates 300ng/mL cut (Negative) Ur Oxycodone Screen (Negative) Urine Methadone Screen (Negative) Ur Barbiturates Screen (Negative) U Tricyclic Antidepress (Negative) Ur Phencyclidine Scrn (Negative) Ur Amphetamines Screen (Negative) U Methamphetamines Scrn (Negative) Ur MDMA Scrn (Ecstasy) (Negative) U Benzodiazepines Scrn (Negative) Urine Cocaine Screen (Negative) U Marijuana (THC) Screen (Negative) Ethyl Alcohol ( - 10) mg/dL A.calcoaceticus-baumannii cmplx PCR Not detected (Not Detect) Bacteroides fragilis Not detected (Not Detect) Wendy albicans (PCR) Not detected (Not Detect) Wendy auris (PCR) Not detected (Not Detect) C. glabrata (PCR) Not detected (Not Detect) C. krusei (PCR) Not detected (Not Detect) C. parapsilosis (PCR) Not detected (Not Detect) C. tropicalis (PCR) Not detected (Not Detect) C. neoform/gattii (PCR) Not detected (Not Detect) Enterobacterales (PCR) Not detected (Not Detect) E. cloacae complex PCR Not detected (Not Detect) Enterococc faecalis PCR Not detected (Not Detect) Enterococc faecium PCR Not detected (Not Detect) E. coli (PCR) Not detected (Not Detect) H. influenzae (PCR) Not detected (Not Detect) Klebsiella aerogenes (PCR) Not detected (Not Detect) Klebsiella oxytoca PCR Not detected (Not Detect) Klebsiella pneumoniae Not detected (Not Detect) List. monocytogenes PCR Not detected (Not Detect) N. meningitidis (PCR) Not detected (Not Detect) Proteus species (PCR) Not detected (Not Detect) Salmonella spp. (PCR) Not detected (Not Detect) Serratia marcescens PCR Not detected (Not Detect) Staphylococcus sp PCR Detected (Not Detect) Staph aureus (PCR) Not detected (Not Detect) mecA/C & MREJ Resist Gene Not applicable (Not Detect) mecA/C-Methicil Resis Gene Not applicable (Not Detect) mcr-1 Colistin Res Gene PCR Not applicable (Not Detect) Staph epidermidis (PCR) Not detected (Not Detect) Staph lugdunensis PCR Not detected (Not Detect) S. maltophilia (PCR) Not detected (Not Detect) Streptococcus sp PCR Not detected (Not Detect) Group A Strep (PCR) Not detected (Not Detect) Strep agalactiae (PCR) Not detected (Not Detect) Strep pneumoniae (PCR) Not detected (Not Detect) P. aeruginosa (PCR) Not detected (Not Detect) Paul/B-Vanco Res Genes Not applicable (Not Detect) blaIMP Car res Gene PCR Not applicable (Not Detect) KPC-Carbap Res Gene PCR Not applicable (Not Detect) blaNDM Car Res Gene PCR Not applicable (Not Detect) OXA-48 Carbapenem Resis Gene (PCR) Not applicable (Not Detect) blaVIM Car Res Gene PCR Not applicable (Not Detect) CTX-M Gene Resistance (PCR) Not applicable (Not Detect) MDM Narrative Medical decision making narrative: 32-year-old female with recent alcohol abuse has recently stopped in the last weeks. Patient is quite jaundiced, she has normal white count, hemoglobin 11 but platelets are 128 actually improved from most recent visit INR is 1.4, creatinine today is 2.7 she was 0.59 on her last visit with a potassium of 3.1, sodium is 138 glucose is 93 with CO2 of 18. Bilirubin is 33 up from 15, AST is 139 ALT is 39 alk-phos 177, ammonia levels 35 albumin 3.2. ETOH is negative. UDS positive for barbiturates and benzodiazepines but this maybe related to her recent Librium prescription and likely receive phenobarbital on her last hospitalization. CT KUB showed lobulated liver changes with diffusely decreased liver parenchymal density multiple small calcified stones in the gallbladder but no wall thickening or fluid no biliary dilation or ductal dilation, patient does not have any abnormal intraperitoneal fluid or free air. Patient has some diffuse colonic wall thickening with mild pericolonic fat stranding. No hernia, hyperdensity in the endometrium suggesting blood. Patient has currently been on her period. Patient's MELD score is 33points with 52.6% 3 month mortality. I reviewed patient's findings today. UA shows trace glucose, no ketones, no blood, no nitrates 3+ bilirubin otherwise 1 WBC but no other leukocyte esterase, no RBCs or bacteria. Discussed with patient she did have 350 mL out Gardner catheter was given 1 L fluid bolus we will continue with hydration gently. Gardner catheter was placed for strict I's and O's. UDS positive for benzodiazepines and barbiturates but patient has been on Librium recently. Patient would likely benefit from transfer for Nephrology and hepatology/GI. Patient signed out to Dr. Hightower while awaiting potential transfer. Dr. Hightower-patient signed out to me by Dr. Lopez I have seen evaluated patient myself. She is awake alert but confused. Very jaundiced. No significant tremors or sign of withdrawal. She is found to have worsening bilirubin in renal function concern for hepatorenal syndrome. CT does show multiple small gallstones she is minimal tender tenderness or right upper quadrant. However with acute change in her bilirubin MRCP was done to rule out choledocholithiasis. MRCP is negative for choledocholithiasis. Discussed case with [facility] liver transplant doctor who reports that she is not a liver transplant candidate and does not need to be transferred for this. Spoke with Dr. Fernandez at [facility] who recommended starting her on antibiotics making sure that there is not an infection. Urinalysis negative no leukocytosis afebrile, procalcitonin 0.71, lactate 1.1 and then 0.9. Low suspicion for infection. Renal function improved after IV fluids Patient on multiple list critical bed shortage. She remained stable awaiting for placement for higher level of care due to worsening liver function high MELD score. <Brooklyn Bowen MD - Last Filed: 05/28/23 22:19> Lab Data Labs: Lab Results 05/27/23 05/27/23 05/27/23 Range/Units 13:36 18:00 19:28 WBC 5.7 (4.5-11.0) X10^3/uL RBC 3.75 L (4.0-5.2) X10^6/uL Hgb 11.1 L (12.0-16.0) g/dL Hct 33.0 L (36-46) % MCV 88.0 (80-100) fL MCH 29.6 (26-34) PG MCHC 33.6 (30-36) % RDW 32.0 H (11.6-14.8) % Plt Count 128 L (150-400) X10^3/uL Neut % (Auto) 75.0 (50-75) % Lymph % (Auto) 12.2 L (25-40) % [place] % (Auto) 12.0 (3-14) % Eos % (Auto) 0.5 L (2-4) % Baso % (Auto) 0.3 (0-2) % Neut # (Auto) 4300 (6324-8402) /uL Lymph # (Auto) 700 L (3029-4864) /uL [place] # (Auto) 700 (0-900) /uL Eos # (Auto) 0 (0-450) /uL Baso # (Auto) 0 (0-100) /uL Total Counted Seg Neutrophils % (38-70) % Lymphocytes % (Manual) (25-45) % Monocytes % (Manual) (2-11) % Eosinophils % (Manual) (2-4) % Basophils % (Manual) (0-1) % Neutrophils # (Manual) (7102-4712) /uL RBC Morphology See below Anisocytosis 3+ H Microcytosis Macrocytosis Target Cells Tear Drop Cells Stomatocytes Schistocytes PT 16.2 H (9.4-12.5) SECONDS INR 1.4 H (0.9-1.3) APTT 39 H (25.1-36.5) SECONDS Sodium 138 137 (137-145) mmol/L Potassium 3.1 L 3.0 L (3.4-5.1) mmol/L Chloride 107 113 H (98-107) mmol/L Carbon Dioxide 18 L 16 L (22-32) mmol/L BUN 16 14 (7-17) mg/dL Creatinine 2.70 H 2.21 H (0.52-1.04) mg/dL Estimated GFR 23 L 29 L (>60) mL/min BUN/Creatinine Ratio 5.9 L 6.3 (6-22) Glucose 93 78 (70-100) mg/dL Lactate 1.1 0.9 (0.7-2.1) mmol/L Calcium 9.4 7.9 L (8.4-10.2) mg/dL Total Bilirubin 33.7 H 31.2 H (0.2-1.3) mg/dL AST 139 H 116 H (14-36) IU/L ALT 39 H 30 (<35) IU/L Alkaline Phosphatase 177 H 126 (38-126) U/L Ammonia 35 H (9-30) umol/L Total Protein 7.6 6.0 L (6.3-8.2) g/dL Albumin 3.2 L 2.5 L (3.5-5.0) g/dL Globulin 4.4 H 3.5 (1.7-4.1) g/dL Albumin/Globulin Ratio 0.7 L 0.7 L (1.0-2.8) Lipase 154 (23-300) U/L Procalcitonin 0.71 H (<0.5) ng/mL Urine Color Yellow Urine Appearance Clear Urine pH 5.5 (4.5-8.0) Ur Specific [place] 1.010 (1.000-1.035) Urine Protein Negative (Negative) Urine Glucose (UA) Trace H (Negative) g/dL Urine Ketones Negative (NEGATIVE) Urine Occult Blood Negative (Negative) Urine Nitrate Negative (Negative) Urine Bilirubin 3+ H (NEGATIVE) Ur Bilirubin Confirm (Negative) Urine Urobilinogen 1.0 (0.2) E.U./dL Ur Leukocyte Esterase Negative (NEGATIVE) Urine RBC None seen (0-5/HPF) Urine WBC 0-1/hpf (0-5/HPF) Ur Squamous Epith Cells None seen (0-5/HPF) Amorphous Sediment 1+ Urine Bacteria None seen (None) Ur Culture Indicated? Cult not indicated Urine Test Negative (Negative) U Opiates 300ng/mL cut Negative (Negative) Ur Oxycodone Screen Negative (Negative) Urine Methadone Screen Negative (Negative) Ur Barbiturates Screen Positive H (Negative) U Tricyclic Antidepress Negative (Negative) Ur Phencyclidine Scrn Negative (Negative) Ur Amphetamines Screen Negative (Negative) U Methamphetamines Scrn Negative (Negative) Ur MDMA Scrn (Ecstasy) Negative (Negative) U Benzodiazepines Scrn Positive H (Negative) Urine Cocaine Screen Negative (Negative) U Marijuana (THC) Screen Negative (Negative) Ethyl Alcohol < 10 ( - 10) mg/dL A.calcoaceticus-baumannii cmplx PCR (Not Detect) Bacteroides fragilis (Not Detect) Wendy albicans (PCR) (Not Detect) Wendy auris (PCR) (Not Detect) C. glabrata (PCR) (Not Detect) C. krusei (PCR) (Not Detect) C. parapsilosis (PCR) (Not Detect) C. tropicalis (PCR) (Not Detect) C. neoform/gattii (PCR) (Not Detect) Enterobacterales (PCR) (Not Detect) E. cloacae complex PCR (Not Detect) Enterococc faecalis PCR (Not Detect) Enterococc faecium PCR (Not Detect) E. coli (PCR) (Not Detect) H. influenzae (PCR) (Not Detect) Klebsiella aerogenes (PCR) (Not Detect) Klebsiella oxytoca PCR (Not Detect) Klebsiella pneumoniae (Not Detect) List. monocytogenes PCR (Not Detect) N. meningitidis (PCR) (Not Detect) Proteus species (PCR) (Not Detect) Salmonella spp. (PCR) (Not Detect) Serratia marcescens PCR (Not Detect) Staphylococcus sp PCR (Not Detect) Staph aureus (PCR) (Not Detect) mecA/C & MREJ Resist Gene (Not Detect) mecA/C-Methicil Resis Gene (Not Detect) mcr-1 Colistin Res Gene PCR (Not Detect) Staph epidermidis (PCR) (Not Detect) Staph lugdunensis PCR (Not Detect) S. maltophilia (PCR) (Not Detect) Streptococcus sp PCR (Not Detect) Group A Strep (PCR) (Not Detect) Strep agalactiae (PCR) (Not Detect) Strep pneumoniae (PCR) (Not Detect) P. aeruginosa (PCR) (Not Detect) Paul/B-Vanco Res Genes (Not Detect) blaIMP Car res Gene PCR (Not Detect) KPC-Carbap Res Gene PCR (Not Detect) blaNDM Car Res Gene PCR (Not Detect) OXA-48 Carbapenem Resis Gene (PCR) (Not Detect) blaVIM Car Res Gene PCR (Not Detect) CTX-M Gene Resistance (PCR) (Not Detect) 05/28/23 05/28/23 05/28/23 Range/Units 05:15 16:15 17:50 WBC 4.9 3.8 L (4.5-11.0) X10^3/uL RBC 3.30 L 3.24 L (4.0-5.2) X10^6/uL Hgb 9.9 L 9.6 L (12.0-16.0) g/dL Hct 29.5 L 28.6 L (36-46) % MCV 89.1 88.2 (80-100) fL MCH 29.8 29.5 (26-34) PG MCHC 33.5 33.5 (30-36) % RDW 31.4 H 31.1 H (11.6-14.8) % Plt Count 102 L 99 L (150-400) X10^3/uL Neut % (Auto) Not Reportable 78.0 H (50-75) % Lymph % (Auto) Not Reportable 10.8 L (25-40) % [place] % (Auto) Not Reportable 9.6 (3-14) % Eos % (Auto) Not Reportable 0.6 L (2-4) % Baso % (Auto) Not Reportable 1.0 (0-2) % Neut # (Auto) 3000 (8102-7759) /uL Lymph # (Auto) Not Reportable 400 L (6829-0748) /uL [place] # (Auto) Not Reportable 400 (0-900) /uL Eos # (Auto) 0 (0-450) /uL Baso # (Auto) Not Reportable 0 (0-100) /uL Total Counted 100 Seg Neutrophils % 78.0 H (38-70) % Lymphocytes % (Manual) 9.0 L (25-45) % Monocytes % (Manual) 8.0 (2-11) % Eosinophils % (Manual) 1.0 L (2-4) % Basophils % (Manual) 4.0 H (0-1) % Neutrophils # (Manual) 3822 (2815-8433) /uL RBC Morphology See below See below Anisocytosis 3+ H 3+ H Microcytosis 2+ H 2+ H Macrocytosis 1+ H 1+ H Target Cells 2+ H 2+ H Tear Drop Cells 1+ H 1+ H Stomatocytes 1+ H Schistocytes 1+ H PT (9.4-12.5) SECONDS INR (0.9-1.3) APTT (25.1-36.5) SECONDS Sodium 138 136 L (137-145) mmol/L Potassium 3.3 L 3.5 (3.4-5.1) mmol/L Chloride 114 H 114 H (98-107) mmol/L Carbon Dioxide 13 L 15 L (22-32) mmol/L BUN 14 15 (7-17) mg/dL Creatinine 2.36 H 2.18 H (0.52-1.04) mg/dL Estimated GFR 27 L 30 L (>60) mL/min BUN/Creatinine Ratio 5.9 L 6.9 (6-22) Glucose 78 86 (70-100) mg/dL Lactate (0.7-2.1) mmol/L Calcium 8.7 8.8 (8.4-10.2) mg/dL Total Bilirubin 30.9 H 31.1 H (0.2-1.3) mg/dL AST 124 H 114 H (14-36) IU/L ALT 35 H 31 (<35) IU/L Alkaline Phosphatase 142 H 130 H (38-126) U/L Ammonia 40 H (9-30) umol/L Total Protein 6.5 6.3 (6.3-8.2) g/dL Albumin 2.7 L 2.6 L (3.5-5.0) g/dL Globulin 3.8 3.7 (1.7-4.1) g/dL Albumin/Globulin Ratio 0.7 L 0.7 L (1.0-2.8) Lipase (23-300) U/L Procalcitonin (<0.5) ng/mL Urine Color Urine Appearance Urine pH (4.5-8.0) Ur Specific [place] (1.000-1.035) Urine Protein (Negative) Urine Glucose (UA) (Negative) g/dL Urine Ketones (NEGATIVE) Urine Occult Blood (Negative) Urine Nitrate (Negative) Urine Bilirubin (NEGATIVE) Ur Bilirubin Confirm (Negative) Urine Urobilinogen (0.2) E.U./dL Ur Leukocyte Esterase (NEGATIVE) Urine RBC (0-5/HPF) Urine WBC (0-5/HPF) Ur Squamous Epith Cells (0-5/HPF) Amorphous Sediment Urine Bacteria (None) Ur Culture Indicated? Urine Test (Negative) U Opiates 300ng/mL cut (Negative) Ur Oxycodone Screen (Negative) Urine Methadone Screen (Negative) Ur Barbiturates Screen (Negative) U Tricyclic Antidepress (Negative) Ur Phencyclidine Scrn (Negative) Ur Amphetamines Screen (Negative) U Methamphetamines Scrn (Negative) Ur MDMA Scrn (Ecstasy) (Negative) U Benzodiazepines Scrn (Negative) Urine Cocaine Screen (Negative) U Marijuana (THC) Screen (Negative) Ethyl Alcohol ( - 10) mg/dL A.calcoaceticus-baumannii cmplx PCR Not detected (Not Detect) Bacteroides fragilis Not detected (Not Detect) Wendy albicans (PCR) Not detected (Not Detect) Wendy auris (PCR) Not detected (Not Detect) C. glabrata (PCR) Not detected (Not Detect) C. krusei (PCR) Not detected (Not Detect) C. parapsilosis (PCR) Not detected (Not Detect) C. tropicalis (PCR) Not detected (Not Detect) C. neoform/gattii (PCR) Not detected (Not Detect) Enterobacterales (PCR) Not detected (Not Detect) E. cloacae complex PCR Not detected (Not Detect) Enterococc faecalis PCR Not detected (Not Detect) Enterococc faecium PCR Not detected (Not Detect) E. coli (PCR) Not detected (Not Detect) H. influenzae (PCR) Not detected (Not Detect) Klebsiella aerogenes (PCR) Not detected (Not Detect) Klebsiella oxytoca PCR Not detected (Not Detect) Klebsiella pneumoniae Not detected (Not Detect) List. monocytogenes PCR Not detected (Not Detect) N. meningitidis (PCR) Not detected (Not Detect) Proteus species (PCR) Not detected (Not Detect) Salmonella spp. (PCR) Not detected (Not Detect) Serratia marcescens PCR Not detected (Not Detect) Staphylococcus sp PCR Detected (Not Detect) Staph aureus (PCR) Not detected (Not Detect) mecA/C & MREJ Resist Gene Not applicable (Not Detect) mecA/C-Methicil Resis Gene Not applicable (Not Detect) mcr-1 Colistin Res Gene PCR Not applicable (Not Detect) Staph epidermidis (PCR) Not detected (Not Detect) Staph lugdunensis PCR Not detected (Not Detect) S. maltophilia (PCR) Not detected (Not Detect) Streptococcus sp PCR Not detected (Not Detect) Group A Strep (PCR) Not detected (Not Detect) Strep agalactiae (PCR) Not detected (Not Detect) Strep pneumoniae (PCR) Not detected (Not Detect) P. aeruginosa (PCR) Not detected (Not Detect) Paul/B-Vanco Res Genes Not applicable (Not Detect) blaIMP Car res Gene PCR Not applicable (Not Detect) KPC-Carbap Res Gene PCR Not applicable (Not Detect) blaNDM Car Res Gene PCR Not applicable (Not Detect) OXA-48 Carbapenem Resis Gene (PCR) Not applicable (Not Detect) blaVIM Car Res Gene PCR Not applicable (Not Detect) CTX-M Gene Resistance (PCR) Not applicable (Not Detect) MDM Narrative Medical decision making narrative: 32-year-old female with recent alcohol abuse has recently stopped in the last weeks. Patient is quite jaundiced, she has normal white count, hemoglobin 11 but platelets are 128 actually improved from most recent visit INR is 1.4, creatinine today is 2.7 she was 0.59 on her last visit with a potassium of 3.1, sodium is 138 glucose is 93 with CO2 of 18. Bilirubin is 33 up from 15, AST is 139 ALT is 39 alk-phos 177, ammonia levels 35 albumin 3.2. ETOH is negative. UDS positive for barbiturates and benzodiazepines but this maybe related to her recent Librium prescription and likely receive phenobarbital on her last hospitalization. CT [facility] showed lobulated liver changes with diffusely decreased liver parenchymal density multiple small calcified stones in the gallbladder but no wall thickening or fluid no biliary dilation or ductal dilation, patient does not have any abnormal intraperitoneal fluid or free air. Patient has some diffuse colonic wall thickening with mild pericolonic fat stranding. No hernia, hyperdensity in the endometrium suggesting blood. Patient has currently been on her period. Patient's MELD score is 33points with 52.6% 3 month mortality. I reviewed patient's findings today. UA shows trace glucose, no ketones, no blood, no nitrates 3+ bilirubin otherwise 1 WBC but no other leukocyte esterase, no RBCs or bacteria. Discussed with patient she did have 350 mL out Gardner catheter was given 1 L fluid bolus we will continue with hydration gently. Gardner catheter was placed for strict I's and O's. UDS positive for benzodiazepines and barbiturates but patient has been on Librium recently. Patient would likely benefit from transfer for Nephrology and hepatology/GI. Patient signed out to Dr. Hightower while awaiting potential transfer. Dr. Hightower-patient signed out to me by Dr. Lopez I have seen evaluated patient myself. She is awake alert but confused. Very jaundiced. No significant tremors or sign of withdrawal. She is found to have worsening bilirubin in renal function concern for hepatorenal syndrome. CT does show multiple small gallstones she is minimal tender tenderness or right upper quadrant. However with acute change in her bilirubin MRCP was done to rule out choledocholithiasis. MRCP is negative for choledocholithiasis. Discussed case with [facility] liver transplant doctor who reports that she is not a liver transplant candidate and does not need to be transferred for this. Spoke with Dr. Fernandez at [facility] who recommended starting her on antibiotics making sure that there is not an infection. Urinalysis negative no leukocytosis afebrile, procalcitonin 0.71, lactate 1.1 and then 0.9. Low suspicion for infection. Renal function improved after IV fluids Patient on multiple list critical bed shortage. She remained stable awaiting for placement for higher level of care due to worsening liver function high MELD score. 05/28/23 John patient signed back out to myself. We did contact [facility] this morning. Patient appears stable. She notes she would quite a bit of difficulty moving around safely. We will continue lactulose repeated her oral potassium supplementation slightly improved but still low continue with very slow fluids patient is eating and drinking with the diet. Patient's Flagyl and Rocephin were ordered to be continued. Discussed with patient and friend at bedside we will continue for transfer. SPoke with Dr. Chapin at [facility], accepts for PCU bed. They will have to evaluate for PCU bed status unsure if they have this availability. Patient signed out to Dr. Bowen while awaiting placement. [facility] has been in contact. Patient has antibiotics ordered to continue. Labs were repeated this evening appear fairly stable. Ammonia has slightly increased. 05/28/23 Andrés -care of patient is signed out to me by Dr. Lopez. No acute events reported while patient was in the emergency department. Ambulance transport arrived at 2200 to take patient to higher level of care. Patient left with medics in stable condition Critical Care Time <Jewell Katja, - Last Filed: 05/31/23 06:53> Critical Care Time Critical Care Time: Yes Total Critical Care Time: 40 Attestation: The high probability of a clinically significant, sudden or life threatening deterioration of the [cardiovascular] system(s) required my full and direct attention, intervention and personal management. The aggregate critical care time was 40 minutes. This time is in addition to time spent performing reported procedures but includes the following: [x] Data Review and interpretation [x] Patient assessment and monitoring of vital signs [x] Documentation [x] Medication orders and management Discharge Plan Departure Patient Disposition: [facility] Clinical Impression: Alcoholic liver failure, Renal failure, Hypokalemia Prescriptions: No Action citalopram 40 mg tablet 40 mg PO DAILY trazodone 100 mg tablet 100 mg PO ONCE PM pantoprazole 40 mg tablet,delayed release (DR/EC) 40 mg PO DAILY folic acid 1 mg Tablet 1 mg PO DAILY Qty: 30 0RF multivitamin with folic acid [Tab-A-Fela] 400 mcg Tablet 1 tab PO DAILY Qty: 30 0RF potassium chloride 20 mEq tablet,ER particles/crystals 20 meq PO DAILY Qty: 30 0RF thiamine HCl (vitamin B1) 100 mg tablet 50 mg PO DAILY Qty: 30 0RF sulfamethoxazole-trimethoprim [Bactrim DS] 800-160 mg tablet 1 tab PO BID Qty: 4 0RF chlordiazepoxide HCl 25 mg capsule 50 mg PO TID Qty: 5 0RF Rx Instructions: take 2 more doses on 05/16, 2 doses on 05/17, 1 dose of 05/18 and then stop Referrals: Silvia Kent, LISA, [employer]APH[employer] [Primary Care Provider] -
[2023-05-27 18:12] LABS: Appearance Urine UA CLEAR; Bilirubin Urine UA 3+ (NEGATIVE); Color Urine UA YELLOW; Glucose Urine UA TRACE g/dL (Negative); Ketones Urine UA NEGATIVE (NEGATIVE); Leukocyte Esterase Urine UA NEGATIVE (NEGATIVE); Nitrite Urine UA NEGATIVE (Negative); Occult Blood Urine UA NEGATIVE (Negative); Protein Urine UA NEGATIVE (Negative)
[2023-05-27] MEDS: SODIUM CHLORIDE 0.9% 1,000 ML 1000 ML IV ×2 (18:15→21:54)
[2023-05-27 18:17] LABS: Pregnancy Test Urine Negative (Negative)
[2023-05-27 18:21] LABS: pH Urine UA 5.5 (4.5-8.0)
[2023-05-27 18:22] LABS: Bacteria Urine None Seen; RBC Urine None Seen (0-5/HPF); Squamous Epithelial Cell Urine None Seen (0-5/HPF); WBC Urine 0-1/HPF (0-5/HPF)
[2023-05-27 18:23] LABS: Amorphous Sediment Urine 1+; Culture Indicated Urine Cult Not Indicated; UR Morphine/Opiate cutoff 300 Negative (Negative); Ur Creatinine Normal (Normal); Ur Specific Gravity Normal (Normal); Urine Amphetamines Negative (Negative); Urine Barbiturates Positive (Negative); Urine Benzodiazepines Positive (Negative); Urine Cocaine Negative (Negative); Urine MDMA Negative (Negative); Urine Methadone Negative (Negative); Urine Methamphetamines Negative (Negative); Urine Oxycodone Negative (Negative); Urine Phencyclidine Negative (Negative); Urine Tetrahydrocannabinol Negative (Negative); Urine Tricyclic Antidepressant Negative (Negative); Urine pH Normal (Normal)
[2023-05-27 19:46] LABS: Alanine Aminotransferase 30 IU/L (<35); Albumin 2.5 g/dL (3.5-5.0); Albumin Globulin Ratio 0.7 (1.0-2.8); Alkaline Phosphatase 126 U/L (38-126); Aspartate Aminotransferase 116 IU/L (14-36); BUN Creatinine Ratio 6.3 (6-22); Blood Urea Nitrogen 14 mg/dL (7-17); Calcium 7.9 mg/dL (8.4-10.2); Carbon Dioxide 16 mmol/L (22-32); Chloride 113 mmol/L (98-107); Estimated Glomerular Filt Rate 29 mL/min (>60); Globulin 3.5 g/dL (1.7-4.1); Glucose 78 mg/dL (70-100); Sodium 137 mmol/L (137-145)
--- NOTE | 2023-05-27 20:23 | DI.MRI.S_ITS ---
PROCEDURE: MR ABDOMEN WO/W CON INDICATIONS: gall stones high raimundo, cirrhosis TECHNIQUE: Coronal HASTE, axial 2D FLASH in- and [id number]; axial breath-hold T2 FSE. Dynamic axial VIBE during the administration of contrast; post-contrast coronal VIBE or 2D FLASH with fat saturation from the hepatic dome to the iliac crests. Optional diffusion weighted imaging and ADC may be performed. COMPARISON: [facility], CT, CT KIDNEY URETER BLADDER (KUB), 05/27/2023, 17:28. [facility], MR, MR ABDOMEN WO/W CON, 04/25/2022, 7:37. FINDINGS: Image quality: Diagnostic. Lung bases: No basal pleural effusions. Heart size is normal. Liver: Liver is enlarged. There is decreased signal on out of phase T1-weighted images consistent with diffuse fatty infiltration. Mildly nodular liver surface is suspicious for cirrhosis. Portions of the liver are not included on all sequences due to liver size; liver measures at least 30 cm in craniocaudal dimension. There is heterogeneous geographic arterial enhancement of the liver. No suspicious and arterially enhancing mass is seen given limitations related to liver size and respiratory motion. Gallbladder: Gallbladder is contracted. There is suggestion of gallbladder wall thickening without significant pericholecystic fluid. No gallstones are seen. Biliary tree: No dilation. No filling defect is seen. Pancreas: No ductal dilation. Spleen: Moderately enlarged. Adrenal glands: No adrenal nodules. Kidneys: No hydronephrosis. No solid mass. No complex renal cyst which requires follow up, per consensus guidelines. Nodes and vessels: No retroperitoneal or mesenteric adenopathy by size criteria. Aorta and inferior vena cava are normal in size. Bowel and peritoneum: Normal colonic caliber. No free fluid. Bones and soft tissues: No ventral hernias. Bone marrow is normal in overall signal. IMPRESSION: 1. Marked hepatomegaly and diffuse hepatic steatosis. Mildly nodular liver surface may indicate cirrhosis. Heterogeneous enhancement of the liver is seen without a definite suspicious arterially enhancing mass. 2. Contracted appearance of the gallbladder. Apparent gallbladder wall thickening may be related to contraction or liver disease versus less likely cholecystitis. No pericholecystic fluid. Previously seen tiny calcified gallstones or calcific debris are not well visualized on MRI. 3. No biliary ductal dilatation. No choledocholith. Approved by: Terrance Shetty M.D. on 05/27/2023 at 22:55
[2023-05-27 20:29] LABS: Bilirubin Total 31.2 mg/dL (0.2-1.3)
[2023-05-27] MEDS: LORazepam 2 MG/ML INJ 0.5 MG IV (20:35)
[2023-05-27 21:46] LABS: Lactate (Lactic Acid) 1.1 mmol/L (0.7-2.1)
[2023-05-27] MEDS: metroNIDAZOLE 500 MG/100 ML PIGGYBACK 100 MG IV (21:54)
[2023-05-27 22:04] LABS: Procalcitonin 0.71 ng/mL (<0.5)
[2023-05-27] MEDS: cefTRIAXone 2,000 MG in SODIUM CHLORIDE 0.9% 100 ML 200 MG IV (22:37)
[2023-05-27 23:09] LABS: Lactate (Lactic Acid) 0.9 mmol/L (0.7-2.1)
[2023-05-28] VITALS (53 sets, daily range): BP systolic 105–141; BP diastolic 60–88; PULSE 76–86; RESP 13–26; TEMP 36.9–37.2; O2SAT 94–99
[2023-05-28] MEDS: SODIUM CHLORIDE 0.9% 1,000 ML 84 ML IV ×2 (00:32→16:42)
--- NOTE | 2023-05-28 04:35 | PC.NURSE ---
Pt on wait lists for transfer @ , [facility], [facility], [facility], [place], no list at [facility], [place]
[2023-05-28 05:28] LABS: Hematocrit 29.5 % (36-46); Hemoglobin 9.9 g/dL (12.0-16.0); Mean Corpuscular HGB Conc 33.5 % (30-36); Mean Corpuscular Hemoglobin 29.8 PG (26-34); Mean Corpuscular Volume 89.1 fL (80-100); Platelet Count 102 X10^3/uL (150-400); Red Cell Distribution Width 31.4 % (11.6-14.8); White Blood Cell Count 4.9 X10^3/uL (4.5-11.0)
[2023-05-28 05:29] LABS: Add Manual Diff / Slide Review YES
[2023-05-28 05:32] LABS: Alanine Aminotransferase 35 IU/L (<35); Albumin 2.7 g/dL (3.5-5.0); Albumin Globulin Ratio 0.7 (1.0-2.8); Alkaline Phosphatase 142 U/L (38-126); Aspartate Aminotransferase 124 IU/L (14-36); BUN Creatinine Ratio 5.9 (6-22); Blood Urea Nitrogen 14 mg/dL (7-17); Calcium 8.7 mg/dL (8.4-10.2); Carbon Dioxide 13 mmol/L (22-32); Chloride 114 mmol/L (98-107); Estimated Glomerular Filt Rate 27 mL/min (>60); Globulin 3.8 g/dL (1.7-4.1); Glucose 78 mg/dL (70-100); Potassium 3.3 mmol/L (3.4-5.1); Sodium 138 mmol/L (137-145); Total Protein 6.5 g/dL (6.3-8.2)
[2023-05-28 05:42] LABS: Bilirubin Total 30.9 mg/dL (0.2-1.3); HEMOLYSIS 0 (0-50)
[2023-05-28 05:54] LABS: Neutrophils Absolute Manual 3822 /uL (3000-5900); Total Cells Counted 100
[2023-05-28 05:56] LABS: Anisocytosis 3+; Macrocytosis 1+; Microcytosis 2+; Stomatocytes 1+; Tear Drop Cells 1+
[2023-05-28 05:57] LABS: Target Cells 2+
[2023-05-28] MEDS: POTASSIUM CHLORIDE 20 MEQ TAB 40 MEQ PO (08:08)
[2023-05-28] MEDS: metroNIDAZOLE 500 MG/100 ML PIGGYBACK 100 MG IV ×2 (08:08→15:28)
[2023-05-28] MEDS: LACTULOSE 20 GM/30 ML SOLUTION PO (08:08)
--- NOTE | 2023-05-28 10:55 | PC.NURSE ---
late entry, at 0730 RN was assisting pt to commode, pt was unsteady when getting up and not stable on her feet. Pt was a full assist from commode back to bed. Dr. Lopez aware of change in condition. RN instructed pt on importance of not getting up out of bed. Continuing to use bedpan for toileting.
--- NOTE | 2023-05-28 11:40 | PC.NURSE ---
SPONGE DIVER NOTE: pt repositioned; pt appears comfortable
[2023-05-28 16:24] LABS: Add Manual Diff / Slide Review NO; Basophils Absolute Auto 0 /uL (0-100); Eosinophils Absolute Auto 0 /uL (0-450); Eosinophils Percent Auto 0.6 % (2-4); Hematocrit 28.6 % (36-46); Hemoglobin 9.6 g/dL (12.0-16.0); Lymphocytes Absolute Auto 400 /uL (1100-4500); Lymphocytes Percent Auto 10.8 % (25-40); Mean Corpuscular HGB Conc 33.5 % (30-36); Mean Corpuscular Hemoglobin 29.5 PG (26-34); Mean Corpuscular Volume 88.2 fL (80-100); Monocytes Absolute Auto 400 /uL (0-900); Monocytes Percent Auto 9.6 % (3-14); Neutrophils Absolute Auto 3000 /uL (1500-7000); Platelet Count 99 X10^3/uL (150-400); Red Blood Cell Count 3.24 X10^6/uL (4.0-5.2); Red Cell Distribution Width 31.1 % (11.6-14.8); White Blood Cell Count 3.8 X10^3/uL (4.5-11.0)
--- NOTE | 2023-05-28 16:45 | PC.NURSE ---
Verified with provider Mank to restart orders for continuous IV fluid administration of NS at 84 mls/hr.
[2023-05-28 16:48] LABS: Ammonia (NH3) 40 umol/L (9-30)
[2023-05-28 16:49] LABS: Alanine Aminotransferase 31 IU/L (<35); Albumin 2.6 g/dL (3.5-5.0); Albumin Globulin Ratio 0.7 (1.0-2.8); Alkaline Phosphatase 130 U/L (38-126); Aspartate Aminotransferase 114 IU/L (14-36); BUN Creatinine Ratio 6.9 (6-22); Blood Urea Nitrogen 15 mg/dL (7-17); Calcium 8.8 mg/dL (8.4-10.2); Carbon Dioxide 15 mmol/L (22-32); Chloride 114 mmol/L (98-107); Estimated Glomerular Filt Rate 30 mL/min (>60); Globulin 3.7 g/dL (1.7-4.1); Glucose 86 mg/dL (70-100); Potassium 3.5 mmol/L (3.4-5.1); Sodium 136 mmol/L (137-145); Total Protein 6.3 g/dL (6.3-8.2)
[2023-05-28 17:00] LABS: Bilirubin Total 31.1 mg/dL (0.2-1.3)
[2023-05-28 17:18] LABS: Anisocytosis 3+; Microcytosis 2+
[2023-05-28 17:19] LABS: Target Cells 2+; Tear Drop Cells 1+
[2023-05-28 17:20] LABS: Macrocytosis 1+; Schistocytes 1+
--- NOTE | 2023-05-28 17:29 | PC.NURSE ---
Pt is alert to place, situation, but unaware of date. Patient thinks it is April of 1993.
[2023-05-28 19:03] LABS: Acinetobacter calcoa-baumannii Not Detected (Not Detect); Bacteroides fragilis Not Detected (Not Detect); Candida albicans Not Detected (Not Detect); Candida auris Not Detected (Not Detect); Candida glabrata Not Detected (Not Detect); Candida krusei Not Detected (Not Detect); Candida parapsilosis Not Detected (Not Detect); Candida tropicalis Not Detected (Not Detect); Cryptococcus neoformans/gatti Not Detected (Not Detect); Enterobacter cloacae complex Not Detected (Not Detect); Enterobacterales Not Detected (Not Detect); Enterococcus faecalis Not Detected (Not Detect); Enterococcus faecium Not Detected (Not Detect); Haemophilus influenzae Not Detected (Not Detect); Klebsiella aerogenes Not Detected (Not Detect); Listeria monocytogenes Not Detected (Not Detect); Neisseria meningitidis Not Detected (Not Detect); Proteus species Not Detected (Not Detect); Pseudomonas aeruginosa Not Detected (Not Detect); Salmonella species Not Detected (Not Detect); Serratia marcescens Not Detected (Not Detect); Staphylococcus epidermidis Not Detected (Not Detect); Staphylococcus lugdunensis Not Detected (Not Detect); Stenotrophomonas maltophilia Not Detected (Not Detect); Streptococcus agalactiae (Gr B Not Detected (Not Detect); Streptococcus pneumonia Not Detected (Not Detect); Streptococcus pyogenes (Gr A) Not Detected (Not Detect); Streptococcus species Not Detected (Not Detect)
[2023-05-28 19:07] LABS: Staphylococcus species Detected (Not Detect)
--- NOTE | 2023-05-28 22:14 | PC.NURSE ---
Report given to Annalise REGAN for [facility] transport. Report also called to Gaviota REGAN at [facility] at .
== END 2023-05-28 22:18 | disposition short-term general hospital (02) ==
PROVIDERS: Emergency Medicine; Emergency Provider Emergency Medicine; PCP Nurse Practitioner Family
DX: K70.40 Alcoholic hepatic failure without coma (principal); N19 Unspecified kidney failure; E87.6 Hypokalemia
CPT/HCPCS: 36415; 71045; 74176; 74183; 80053; 80305; 80320; 81001; 81025; 82140; 83605; 83690; 84145; 85007; 85025; 85610; 85730; 87040; 87077; 87154; 93005; 96365; 96366; 96368; 96375; 99285; A9579; J0696; J2060

== ENCOUNTER → 2023-06-10 13:47 | Outpatient (CLI) | payer OTHER, MEDICAID, SELFPAY ==
[2023-05-15 02:07] VITALS: BMI 30.8
[2023-06-10 14:14] LABS: Add Manual Diff / Slide Review NO; Basophils Absolute Auto 100 /uL (0-100); Basophils Percent Auto 0.7 % (0-2); Eosinophils Absolute Auto 200 /uL (0-450); Eosinophils Percent Auto 1.2 % (2-4); Hematocrit 25.8 % (36-46); Hemoglobin 8.4 g/dL (12.0-16.0); Lymphocytes Absolute Auto 1200 /uL (1100-4500); Lymphocytes Percent Auto 9.7 % (25-40); Mean Corpuscular HGB Conc 32.6 % (30-36); Mean Corpuscular Hemoglobin 30.8 PG (26-34); Mean Corpuscular Volume 94.4 fL (80-100); Monocytes Absolute Auto 800 /uL (0-900); Monocytes Percent Auto 6.1 % (3-14); Neutrophils Absolute Auto 10200 /uL (1500-7000); Neutrophils Percent Auto 82.3 % (50-75); Platelet Count 131 X10^3/uL (150-400); Red Blood Cell Count 2.73 X10^6/uL (4.0-5.2); Red Cell Distribution Width 21.9 % (11.6-14.8); White Blood Cell Count 12.4 X10^3/uL (4.5-11.0)
[2023-06-10 14:20] LABS: INR 1.3 (0.9-1.3); Prothrombin Time 14.5 SECONDS (9.4-12.5)
[2023-06-10 14:24] LABS: Ammonia (NH3) 28 umol/L (9-30)
[2023-06-10 14:39] LABS: Alanine Aminotransferase 289 IU/L (<35); Albumin 3.9 g/dL (3.5-5.0); Albumin Globulin Ratio 1.2 (1.0-2.8); Alkaline Phosphatase 140 U/L (38-126); Aspartate Aminotransferase 309 IU/L (14-36); BUN Creatinine Ratio 23.4 (6-22); Bilirubin Total 6.8 mg/dL (0.2-1.3); Blood Urea Nitrogen 33 mg/dL (7-17); Calcium 9.5 mg/dL (8.4-10.2); Carbon Dioxide 19 mmol/L (22-32); Chloride 109 mmol/L (98-107); Estimated Glomerular Filt Rate 50 mL/min (>60); Globulin 3.2 g/dL (1.7-4.1); Glucose 129 mg/dL (70-100); HEMOLYSIS < 15 (0-50); Potassium 4.3 mmol/L (3.4-5.1); Sodium 139 mmol/L (137-145); Total Protein 7.1 g/dL (6.3-8.2)
[2023-06-10 14:50] LABS: Macrocytosis 1+; Microcytosis 1+; Platelet Estimate Decreased on smear
[2023-06-10 14:51] LABS: Tear Drop Cells 1+
== END ==
PROVIDERS: PCP Nurse Practitioner Family; Referring Provider Nurse Practitioner Family; Visit Provider Nurse Practitioner Family
DX: R79.89 Other specified abnormal findings of blood chemistry (principal); Z78.9 Other specified health status
CPT/HCPCS: 36415; 80053; 82140; 85025; 85610

== ENCOUNTER → 2023-06-14 13:26 | Outpatient (CLI) | payer OTHER, MEDICAID, SELFPAY ==
[2023-05-15 02:07] VITALS: BMI 30.8
[2023-06-14 14:46] LABS: Add Manual Diff / Slide Review NO; Basophils Absolute Auto 100 /uL (0-100); Basophils Percent Auto 0.5 % (0-2); Eosinophils Absolute Auto 100 /uL (0-450); Eosinophils Percent Auto 1.1 % (2-4); Hematocrit 26.9 % (36-46); Lymphocytes Absolute Auto 2500 /uL (1100-4500); Lymphocytes Percent Auto 18.2 % (25-40); Mean Corpuscular HGB Conc 33.4 % (30-36); Mean Corpuscular Hemoglobin 31.6 PG (26-34); Mean Corpuscular Volume 94.6 fL (80-100); Monocytes Absolute Auto 1000 /uL (0-900); Neutrophils Absolute Auto 9900 /uL (1500-7000); Neutrophils Percent Auto 73.2 % (50-75); Platelet Count 122 X10^3/uL (150-400); Red Blood Cell Count 2.84 X10^6/uL (4.0-5.2); Red Cell Distribution Width 19.9 % (11.6-14.8); White Blood Cell Count 13.5 X10^3/uL (4.5-11.0)
[2023-06-14 15:14] LABS: Alanine Aminotransferase 286 IU/L (<35); Albumin Globulin Ratio 1.3 (1.0-2.8); Alkaline Phosphatase 119 U/L (38-126); Aspartate Aminotransferase 197 IU/L (14-36); BUN Creatinine Ratio 23.1 (6-22); Bilirubin Total 5.3 mg/dL (0.2-1.3); Blood Urea Nitrogen 25 mg/dL (7-17); Calcium 10.5 mg/dL (8.4-10.2); Carbon Dioxide 21 mmol/L (22-32); Chloride 108 mmol/L (98-107); Estimated Glomerular Filt Rate > 60 mL/min (>60); Glucose 69 mg/dL (70-100); HEMOLYSIS < 15 (0-50); Potassium 3.9 mmol/L (3.4-5.1); Sodium 139 mmol/L (137-145)
== END ==
PROVIDERS: PCP Nurse Practitioner Family; Referring Provider Nurse Practitioner Family; Visit Provider Nurse Practitioner Family
DX: K70.30 Alcoholic cirrhosis of liver without ascites (principal); L29.9 Pruritus, unspecified
CPT/HCPCS: 36415; 80053; 85025

== ENCOUNTER → 2023-06-28 13:14 | Outpatient (CLI) | payer OTHER, MEDICAID, SELFPAY ==
[2023-05-15 02:07] VITALS: BMI 30.8
[2023-06-28 13:49] LABS: Add Manual Diff / Slide Review NO; Basophils Absolute Auto 100 /uL (0-100); Basophils Percent Auto 0.9 % (0-2); Eosinophils Absolute Auto 300 /uL (0-450); Eosinophils Percent Auto 1.5 % (2-4); Hematocrit 34.3 % (36-46); Hemoglobin 11.3 g/dL (12.0-16.0); Lymphocytes Absolute Auto 2900 /uL (1100-4500); Lymphocytes Percent Auto 17.6 % (25-40); Mean Corpuscular HGB Conc 33.1 % (30-36); Mean Corpuscular Hemoglobin 30.9 PG (26-34); Mean Corpuscular Volume 93.5 fL (80-100); Monocytes Absolute Auto 1000 /uL (0-900); Monocytes Percent Auto 5.8 % (3-14); Neutrophils Absolute Auto 12100 /uL (1500-7000); Neutrophils Percent Auto 74.2 % (50-75); Platelet Count 135 X10^3/uL (150-400); Red Blood Cell Count 3.67 X10^6/uL (4.0-5.2); Red Cell Distribution Width 15.8 % (11.6-14.8); White Blood Cell Count 16.4 X10^3/uL (4.5-11.0)
[2023-06-28 14:02] LABS: Ammonia (NH3) 14 umol/L (9-30)
[2023-06-28 14:12] LABS: Alanine Aminotransferase 163 IU/L (<35); Albumin 4.3 g/dL (3.5-5.0); Albumin Globulin Ratio 1.5 (1.0-2.8); Alkaline Phosphatase 154 U/L (38-126); Aspartate Aminotransferase 77 IU/L (14-36); BUN Creatinine Ratio 32.8 (6-22); Bilirubin Total 2.8 mg/dL (0.2-1.3); Blood Urea Nitrogen 22 mg/dL (7-17); Carbon Dioxide 25 mmol/L (22-32); Chloride 103 mmol/L (98-107); Estimated Glomerular Filt Rate > 60 mL/min (>60); Globulin 2.9 g/dL (1.7-4.1); Glucose 81 mg/dL (70-100); HEMOLYSIS < 15 (0-50); Potassium 3.9 mmol/L (3.4-5.1); Sodium 136 mmol/L (137-145); Total Protein 7.2 g/dL (6.3-8.2)
== END ==
PROVIDERS: PCP Nurse Practitioner Family; Referring Provider Nurse Practitioner Family; Visit Provider Nurse Practitioner Family
DX: K72.00 Acute and subacute hepatic failure without coma (principal)
CPT/HCPCS: 36415; 80053; 82140; 85025

== ENCOUNTER → 2023-07-29 12:13 | Outpatient (CLI) | payer OTHER, MEDICAID, SELFPAY ==
[2023-05-15 02:07] VITALS: BMI 30.8
[2023-07-29 12:49] LABS: Add Manual Diff / Slide Review NO; Basophils Absolute Auto 100 /uL (0-100); Basophils Percent Auto 1.4 % (0-2); Eosinophils Absolute Auto 200 /uL (0-450); Eosinophils Percent Auto 2.2 % (2-4); Hematocrit 37.3 % (36-46); Hemoglobin 12.7 g/dL (12.0-16.0); Lymphocytes Absolute Auto 2100 /uL (1100-4500); Lymphocytes Percent Auto 29.5 % (25-40); Mean Corpuscular HGB Conc 33.9 % (30-36); Mean Corpuscular Hemoglobin 29.9 PG (26-34); Monocytes Absolute Auto 500 /uL (0-900); Monocytes Percent Auto 6.5 % (3-14); Neutrophils Absolute Auto 4300 /uL (1500-7000); Neutrophils Percent Auto 60.4 % (50-75); Platelet Count 147 X10^3/uL (150-400); Red Blood Cell Count 4.24 X10^6/uL (4.0-5.2); Red Cell Distribution Width 14.4 % (11.6-14.8); White Blood Cell Count 7.1 X10^3/uL (4.5-11.0)
[2023-07-29 13:11] LABS: Alanine Aminotransferase 75 IU/L (<35); Albumin 4.2 g/dL (3.5-5.0); Albumin Globulin Ratio 1.4 (1.0-2.8); Alkaline Phosphatase 98 U/L (38-126); Aspartate Aminotransferase 59 IU/L (14-36); BUN Creatinine Ratio 22.2 (6-22); Bilirubin Total 1.1 mg/dL (0.2-1.3); Blood Urea Nitrogen 12 mg/dL (7-17); Calcium 9.8 mg/dL (8.4-10.2); Carbon Dioxide 23 mmol/L (22-32); Chloride 106 mmol/L (98-107); Estimated Glomerular Filt Rate > 60 mL/min (>60); Glucose 106 mg/dL (70-100); HEMOLYSIS < 15 (0-50); Sodium 139 mmol/L (137-145); Total Protein 7.2 g/dL (6.3-8.2)
== END ==
PROVIDERS: PCP Nurse Practitioner Family; Referring Provider Nurse Practitioner Family; Visit Provider Nurse Practitioner Family
DX: K76.82 Hepatic encephalopathy (principal); K72.00 Acute and subacute hepatic failure without coma; K21.9 Gastro-esophageal reflux disease without esophagitis; N17.9 Acute kidney failure, unspecified
CPT/HCPCS: 36415; 80053; 85025

== ENCOUNTER 2023-09-13 23:14 | Emergency (ER) | payer OTHER, MEDICAID, SELFPAY ==
[2023-05-15 02:07] VITALS: BMI 30.8
[2023-09-13 23:23] VITALS: BP 147/96; PULSE 113; RESP 16; TEMP 36.4; O2SAT 98; BMI 35.9
[2023-09-14] VITALS (16 sets, daily range): BP systolic 114–156; BP diastolic 62–102; PULSE 91–109; RESP 15–20; TEMP 36.4; O2SAT 92–99
[2023-09-14 01:43] LABS: Add Manual Diff / Slide Review NO; Basophils Absolute Auto 100 /uL (0-100); Basophils Percent Auto 1.3 % (0-2); Eosinophils Absolute Auto 100 /uL (0-450); Eosinophils Percent Auto 1.5 % (2-4); Hematocrit 37.6 % (36-46); Hemoglobin 12.6 g/dL (12.0-16.0); Lymphocytes Absolute Auto 3000 /uL (1100-4500); Mean Corpuscular HGB Conc 33.5 % (30-36); Mean Corpuscular Hemoglobin 27.7 PG (26-34); Mean Corpuscular Volume 82.8 fL (80-100); Monocytes Absolute Auto 300 /uL (0-900); Monocytes Percent Auto 4.9 % (3-14); Neutrophils Absolute Auto 2700 /uL (1500-7000); Neutrophils Percent Auto 43.3 % (50-75); Platelet Count 152 X10^3/uL (150-400); Red Blood Cell Count 4.54 X10^6/uL (4.0-5.2); Red Cell Distribution Width 13.4 % (11.6-14.8); White Blood Cell Count 6.2 X10^3/uL (4.5-11.0)
[2023-09-14 01:57] LABS: Acetaminophen < 10 ug/mL (10-30); Alanine Aminotransferase 41 IU/L (<35); Albumin 4.2 g/dL (3.5-5.0); Albumin Globulin Ratio 1.3 (1.0-2.8); Alkaline Phosphatase 96 U/L (38-126); Aspartate Aminotransferase 63 IU/L (14-36); BUN Creatinine Ratio 23.4 (6-22); Bilirubin Total 0.9 mg/dL (0.2-1.3); Blood Urea Nitrogen 11 mg/dL (7-17); Calcium 8.5 mg/dL (8.4-10.2); Carbon Dioxide 22 mmol/L (22-32); Chloride 107 mmol/L (98-107); Estimated Glomerular Filt Rate > 60 mL/min (>60); Ethanol (ETOH) 218 mg/dL; Globulin 3.2 g/dL (1.7-4.1); Glucose 97 mg/dL (70-100); HEMOLYSIS 20 (0-50); Lactate (Lactic Acid) 2.8 mmol/L (0.7-2.1); Potassium 3.8 mmol/L (3.4-5.1); Salicylate < 1.0 mg/dL (<20); Sodium 141 mmol/L (137-145); Total Protein 7.4 g/dL (6.3-8.2)
--- NOTE | 2023-09-14 02:24 | PC.NURSE ---
Water w/ ice given to pt and two friends at bedside. Denied any needs at this tiem. Denied any nausea at this time. Updated on plan of care and delay.
[2023-09-14 03:14] LABS: Reflexed Lactate in 2 Hours Y
--- NOTE | 2023-09-14 03:32 | ED_ITS ---
HPI - Alcohol <Jewell Hightower DO - Last Filed: 09/15/23 00:01> General Chief Complaint: Toxicology Problem Stated Complaint: alcohol detox Time Seen by Provider: 09/14/23 02:58 Source: patient Mode of arrival: Ambulatory History of Present Illness HPI narrative: Patient is a 32-year-old female history of alcohol abuse presenting today with wanting detox. She reports she has been sober for 120 days. She started drinking vodka 2 days ago. She has not had alcohol withdrawal seizures but has been admitted many times for alcohol problems. She has been to detox a handful times as well. She is tried many things to stop drinking. She has good support friends at bedside. She is having headache. No abdominal pain nausea or vomiting. No fever. She called to detox centers before her arrival neither 1 had any sort of bed. She has concerned friend Related Data Home Medications Medication Instructions Recorded Confirmed citalopram 40 mg tablet 40 mg PO DAILY 05/14/23 05/14/23 pantoprazole 40 mg tablet,delayed 40 mg PO DAILY 05/14/23 05/14/23 release trazodone 100 mg tablet 100 mg PO ONCE PM 05/14/23 05/14/23 Previous Rx's Medication Instructions Recorded chlordiazepoxide HCl 25 mg capsule 50 mg (2 x 25 mg) PO TID #5 caps 05/16/23 folic acid 1 mg tablet 1 mg PO DAILY #30 tabs 05/16/23 multivitamin with folic acid 400 1 tab PO DAILY #30 tabs 05/16/23 mcg tablet (Tab-A-Fela) potassium chloride 20 mEq 20 meq PO DAILY #30 tabs 05/16/23 tablet,extended release(part/cryst) sulfamethoxazole 800 1 tab PO BID #4 tabs 05/16/23 mg-trimethoprim 160 mg tablet (Bactrim DS) thiamine HCl (vitamin B1) 100 mg 50 mg (1/2 x 100 mg) PO DAILY #30 05/16/23 tablet tabs Allergies Allergy/AdvReac Type Severity Reaction Status Date / Time aspirin Allergy Verified 05/14/23 20:22 naproxen [From Aleve] AdvReac Verified 05/27/23 13:50 Patient History <Jewell Hightower DO - Last Filed: 09/15/23 00:01> Medical History Coagulopathy Pancytopenia Thrombocythemia Alcohol abuse Surgical History No history of previous surgery Family History Father Depression Mother No pertinent past medical history Social History household members: friend(s) Smoking Status: Former smoker alcohol intake: current Smoking Status: Former smoker alcohol intake frequency: 3 or more drinks per day Alcohol type: hard liquor Substance Use Type: does not use Exam <Jewell Hightower DO - Last Filed: 09/15/23 00:01> Initial Vital Signs Initial Vital Signs: Vital Signs Temperature 97.6 F 09/13/23 23:23 Pulse Rate 113 H 09/13/23 23:23 Respiratory Rate 16 09/13/23 23:23 Blood Pressure 147/96 H 09/13/23 23:23 Pulse Oximetry 98 09/13/23 23:23 Oxygen Delivery Method Room Air 09/13/23 23:23 GENERAL: Alert pleasant 32-year-old female and in no acute distress. HEENT: Head atraumatic,EOMI, pupils reactive, face symmetric, moist mucous membranes CARDIOVASCULAR: Regular rate and rhythm without murmurs, rubs or gallops. RESPIRATORY: Breath sounds equal bilaterally, no wheezes rales or rhonchi. ABDOMEN: Soft, nontender. Normoactive bowel sounds all 4 quadrants. No guarding or rebound. EXTREMITIES: Normal range of motion, no clubbing or edema. Neurovascularly intact NEUROLOGICAL: Alert and oriented x4. SKIN: Warm, dry, no laceration, no petechiae, no rashes or lesions. <Brooklyn Bowen MD - Last Filed: 09/14/23 07:55> Initial Vital Signs Initial Vital Signs: Vital Signs Temperature 97.6 F 09/13/23 23:23 Pulse Rate 113 H 09/13/23 23:23 Respiratory Rate 16 09/13/23 23:23 Blood Pressure 147/96 H 09/13/23 23:23 Pulse Oximetry 98 09/13/23 23:23 Oxygen Delivery Method Room Air 09/13/23 23:23 Course <Jewell Hightower DO - Last Filed: 09/15/23 00:01> Orders Ordered: Discontinued Medications Acetaminophen (Acetaminophen 325 Mg Tablet) 975 mg PO NOW ONE Stop: 09/14/23 03:48 Last Admin: 09/14/23 04:01 Dose: 975 mg Documented By: TAYLOR Chlordiazepoxide HCl (Chlordiazepoxide 25 Mg Capsule) 50 mg PO NOW ONE Stop: 09/14/23 07:53 Last Admin: 09/14/23 07:56 Dose: 50 mg Documented By: Sodium Chloride (Normal Saline 0.9%) 1,000 mls @ 1,000 mls/hr IV BOLUS ONE Stop: 09/14/23 04:45 Last Infusion: 09/14/23 05:00 Dose: Infused Documented By: Admin: 09/14/23 04:00 Dose: 1,000 mls/hr Documented By: TAYLOR Lorazepam (Lorazepam 2 Mg/Ml Inj) 2 mg IV NOW ONE Stop: 09/14/23 06:33 Last Admin: 09/14/23 06:38 Dose: 2 mg Documented By: TAYLOR Phenobarbital (Phenobarbital 65 Mg/Ml Vial) 260 mg IV NOW ONE Stop: 09/14/23 03:47 Last Admin: 09/14/23 04:01 Dose: 260 mg Documented By: TAYLOR Vital Signs Vital signs: Vital Signs - 8 hr 09/14/23 01:27 09/14/23 01:27 09/14/23 01:30 Temperature 97.6 F Pulse Rate 108 H 101 H 102 H Respiratory Rate 20 Blood Pressure 156/100 H Pulse Oximetry 97 99 99 Oxygen Delivery Method Room Air Room Air 09/14/23 01:30 09/14/23 02:00 09/14/23 02:00 Temperature Pulse Rate 99 H Respiratory Rate Blood Pressure 144/102 H 147/87 H Pulse Oximetry 98 Oxygen Delivery Method Room Air 09/14/23 02:30 09/14/23 02:30 09/14/23 03:00 Temperature Pulse Rate 100 H 98 H Respiratory Rate Blood Pressure 137/86 Pulse Oximetry 97 94 Oxygen Delivery Method 09/14/23 03:00 09/14/23 03:30 09/14/23 03:30 Temperature Pulse Rate 99 H Respiratory Rate 18 Blood Pressure 134/79 114/69 Pulse Oximetry 93 Oxygen Delivery Method 09/14/23 04:00 09/14/23 04:00 09/14/23 04:30 Temperature Pulse Rate 102 H 96 H Respiratory Rate Blood Pressure 128/90 Pulse Oximetry 96 94 Oxygen Delivery Method Room Air 09/14/23 04:30 09/14/23 05:00 09/14/23 05:00 Temperature Pulse Rate 99 H Respiratory Rate Blood Pressure 130/81 140/90 Pulse Oximetry 95 Oxygen Delivery Method 09/14/23 05:30 09/14/23 05:30 09/14/23 06:00 Temperature Pulse Rate 101 H 109 H Respiratory Rate Blood Pressure 149/91 H Pulse Oximetry 96 95 Oxygen Delivery Method 09/14/23 06:00 09/14/23 06:30 09/14/23 06:30 Temperature Pulse Rate 91 H Respiratory Rate Blood Pressure 139/87 122/71 Pulse Oximetry 94 Oxygen Delivery Method Room Air 09/14/23 07:00 09/14/23 07:00 09/14/23 07:00 Temperature Pulse Rate 101 H 101 H Respiratory Rate Blood Pressure 120/73 Pulse Oximetry 93 96 Oxygen Delivery Method 09/14/23 07:30 09/14/23 07:30 Temperature Pulse Rate 104 H Respiratory Rate Blood Pressure 120/62 Pulse Oximetry 92 Oxygen Delivery Method <Brooklyn Bowen MD - Last Filed: 09/14/23 07:55> Orders Ordered: Discontinued Medications Acetaminophen (Acetaminophen 325 Mg Tablet) 975 mg PO NOW ONE Stop: 09/14/23 03:48 Last Admin: 09/14/23 04:01 Dose: 975 mg Documented By: TAYLOR Chlordiazepoxide HCl (Chlordiazepoxide 25 Mg Capsule) 50 mg PO NOW ONE Stop: 09/14/23 07:53 Last Admin: 09/14/23 07:56 Dose: 50 mg Documented By: Sodium Chloride (Normal Saline 0.9%) 1,000 mls @ 1,000 mls/hr IV BOLUS ONE Stop: 09/14/23 04:45 Last Infusion: 09/14/23 05:00 Dose: Infused Documented By: Admin: 09/14/23 04:00 Dose: 1,000 mls/hr Documented By: TAYLOR Lorazepam (Lorazepam 2 Mg/Ml Inj) 2 mg IV NOW ONE Stop: 09/14/23 06:33 Last Admin: 09/14/23 06:38 Dose: 2 mg Documented By: TAYLOR Phenobarbital (Phenobarbital 65 Mg/Ml Vial) 260 mg IV NOW ONE Stop: 09/14/23 03:47 Last Admin: 09/14/23 04:01 Dose: 260 mg Documented By: SB Vital Signs Vital signs: Vital Signs - 8 hr 09/14/23 01:27 09/14/23 01:27 09/14/23 01:30 Temperature 97.6 F Pulse Rate 108 H 101 H 102 H Respiratory Rate 20 Blood Pressure 156/100 H Pulse Oximetry 97 99 99 Oxygen Delivery Method Room Air Room Air 09/14/23 01:30 09/14/23 02:00 09/14/23 02:00 Temperature Pulse Rate 99 H Respiratory Rate Blood Pressure 144/102 H 147/87 H Pulse Oximetry 98 Oxygen Delivery Method Room Air 09/14/23 02:30 09/14/23 02:30 09/14/23 03:00 Temperature Pulse Rate 100 H 98 H Respiratory Rate Blood Pressure 137/86 Pulse Oximetry 97 94 Oxygen Delivery Method 09/14/23 03:00 09/14/23 03:30 09/14/23 03:30 Temperature Pulse Rate 99 H Respiratory Rate 18 Blood Pressure 134/79 114/69 Pulse Oximetry 93 Oxygen Delivery Method 09/14/23 04:00 09/14/23 04:00 09/14/23 04:30 Temperature Pulse Rate 102 H 96 H Respiratory Rate Blood Pressure 128/90 Pulse Oximetry 96 94 Oxygen Delivery Method Room Air 09/14/23 04:30 09/14/23 05:00 09/14/23 05:00 Temperature Pulse Rate 99 H Respiratory Rate Blood Pressure 130/81 140/90 Pulse Oximetry 95 Oxygen Delivery Method 09/14/23 05:30 09/14/23 05:30 09/14/23 06:00 Temperature Pulse Rate 101 H 109 H Respiratory Rate Blood Pressure 149/91 H Pulse Oximetry 96 95 Oxygen Delivery Method 09/14/23 06:00 09/14/23 06:30 09/14/23 06:30 Temperature Pulse Rate 91 H Respiratory Rate Blood Pressure 139/87 122/71 Pulse Oximetry 94 Oxygen Delivery Method Room Air 09/14/23 07:00 09/14/23 07:00 09/14/23 07:00 Temperature Pulse Rate 101 H 101 H Respiratory Rate Blood Pressure 120/73 Pulse Oximetry 93 96 Oxygen Delivery Method 09/14/23 07:30 09/14/23 07:30 Temperature Pulse Rate 104 H Respiratory Rate Blood Pressure 120/62 Pulse Oximetry 92 Oxygen Delivery Method MDM - Alcohol <Jewell Hightower, DO - Last Filed: 09/15/23 00:01> Lab Data 09/14/23 01:30 09/14/23 01:30 Labs: Lab Results 09/14/23 09/14/23 Range/Units 01:30 05:02 WBC 6.2 (4.5-11.0) X10^3/uL RBC 4.54 (4.0-5.2) X10^6/uL Hgb 12.6 (12.0-16.0) g/dL Hct 37.6 (36-46) % MCV 82.8 (80-100) fL MCH 27.7 (26-34) PG MCHC 33.5 (30-36) % RDW 13.4 (11.6-14.8) % Plt Count 152 (150-400) X10^3/uL Neut % (Auto) 43.3 L (50-75) % Lymph % (Auto) 49.0 H (25-40) % [place] % (Auto) 4.9 (3-14) % Eos % (Auto) 1.5 L (2-4) % Baso % (Auto) 1.3 (0-2) % Neut # (Auto) 2700 (0739-4773) /uL Lymph # (Auto) 3000 (5804-6841) /uL [place] # (Auto) 300 (0-900) /uL Eos # (Auto) 100 (0-450) /uL Baso # (Auto) 100 (0-100) /uL PT 15.6 H (9.4-12.5) SECONDS INR 1.4 H (0.9-1.3) APTT 38 H (25.1-36.5) SECONDS Sodium 141 (137-145) mmol/L Potassium 3.8 (3.4-5.1) mmol/L Chloride 107 (98-107) mmol/L Carbon Dioxide 22 (22-32) mmol/L BUN 11 (7-17) mg/dL Creatinine 0.47 L (0.52-1.04) mg/dL Estimated GFR > 60 (>60) mL/min BUN/Creatinine Ratio 23.4 H (6-22) Glucose 97 (70-100) mg/dL Lactate 2.8 H 2.7 H (0.7-2.1) mmol/L Calcium 8.5 (8.4-10.2) mg/dL Total Bilirubin 0.9 (0.2-1.3) mg/dL AST 63 H (14-36) IU/L ALT 41 H (<35) IU/L Alkaline Phosphatase 96 (38-126) U/L Total Protein 7.4 (6.3-8.2) g/dL Albumin 4.2 (3.5-5.0) g/dL Globulin 3.2 (1.7-4.1) g/dL Albumin/Globulin Ratio 1.3 (1.0-2.8) Salicylates < 1.0 (<20) mg/dL Acetaminophen < 10 (10-30) ug/mL Ethyl Alcohol 218 H ( - 10) mg/dL MDM Narrative Medical decision making narrative: Patient 32-year-old female history of alcohol abuse has been so many times presents today wanting detox. She does have a current alcohol level of 218. But overall blood work has been reviewed and is improved. She has not suicidal or homicidal. She has previously gone to detox and feels like he needs it again. She has been drinking vodka for the last 2 days. Detox him has been called and may or currently reviewing. Signed out to Dr. Bowen <Brooklyn Bowen MD - Last Filed: 09/14/23 07:55> Lab Data Labs: Lab Results 09/14/23 09/14/23 Range/Units 01:30 05:02 WBC 6.2 (4.5-11.0) X10^3/uL RBC 4.54 (4.0-5.2) X10^6/uL Hgb 12.6 (12.0-16.0) g/dL Hct 37.6 (36-46) % MCV 82.8 (80-100) fL MCH 27.7 (26-34) PG MCHC 33.5 (30-36) % RDW 13.4 (11.6-14.8) % Plt Count 152 (150-400) X10^3/uL Neut % (Auto) 43.3 L (50-75) % Lymph % (Auto) 49.0 H (25-40) % [place] % (Auto) 4.9 (3-14) % Eos % (Auto) 1.5 L (2-4) % Baso % (Auto) 1.3 (0-2) % Neut # (Auto) 2700 (1106-9850) /uL Lymph # (Auto) 3000 (9296-0979) /uL [place] # (Auto) 300 (0-900) /uL Eos # (Auto) 100 (0-450) /uL Baso # (Auto) 100 (0-100) /uL PT 15.6 H (9.4-12.5) SECONDS INR 1.4 H (0.9-1.3) APTT 38 H (25.1-36.5) SECONDS Sodium 141 (137-145) mmol/L Potassium 3.8 (3.4-5.1) mmol/L Chloride 107 (98-107) mmol/L Carbon Dioxide 22 (22-32) mmol/L BUN 11 (7-17) mg/dL Creatinine 0.47 L (0.52-1.04) mg/dL Estimated GFR > 60 (>60) mL/min BUN/Creatinine Ratio 23.4 H (6-22) Glucose 97 (70-100) mg/dL Lactate 2.8 H 2.7 H (0.7-2.1) mmol/L Calcium 8.5 (8.4-10.2) mg/dL Total Bilirubin 0.9 (0.2-1.3) mg/dL AST 63 H (14-36) IU/L ALT 41 H (<35) IU/L Alkaline Phosphatase 96 (38-126) U/L Total Protein 7.4 (6.3-8.2) g/dL Albumin 4.2 (3.5-5.0) g/dL Globulin 3.2 (1.7-4.1) g/dL Albumin/Globulin Ratio 1.3 (1.0-2.8) Salicylates < 1.0 (<20) mg/dL Acetaminophen < 10 (10-30) ug/mL Ethyl Alcohol 218 H ( - 10) mg/dL MDM Narrative Medical decision making narrative: Patient 32-year-old female history of alcohol abuse has been so many times presents today wanting detox. She does have a current alcohol level of 218. But overall blood work has been reviewed and is improved. She has not suicidal or homicidal. She has previously gone to detox and feels like he needs it again. She has been drinking vodka for the last 2 days. Detox him has been called and may or currently reviewing. Signed out to Dr. Andrés Bowen -care of patient signed out to me by Dr. Hightwoer at 7:00 a.m. [facility] has a bed available at 11:00 a.m.. Patient reassessed, she was sleeping soundly in the ED bed, she does have mild tachycardia with heart rate 100 beats per minute sleeping, 117 when awakened, however she was not tremulous, diaphoretic, in any acute distress. Patient was given a dose of Librium in the emergency department. She was counseled about the available detox bed at 11:00 a.m. she states that she was a friend who can take her to [facility] for her detox bed appointment. ED return precautions discussed at bedside. Patient expressed understanding of the plan and is in agreement at this time. All questions answered at the time of discharge. Discharge Plan Departure Patient Disposition: Home Clinical Impression: Alcohol abuse Instructions: DI for Alcohol Use Disorder Activity Restrictions/Additional Instructions: [facility] has a bed available for you at 11:00 a.m. today. A dose of Librium has been given to you here just before her discharge to help with the cravings until you can make it to [facility] for your detox bed. Prescriptions: No Action citalopram 40 mg tablet 40 mg PO DAILY trazodone 100 mg tablet 100 mg PO ONCE PM pantoprazole 40 mg tablet,delayed release (DR/EC) 40 mg PO DAILY folic acid 1 mg Tablet 1 mg PO DAILY Qty: 30 0RF multivitamin with folic acid [Tab-A-Fela] 400 mcg Tablet 1 tab PO DAILY Qty: 30 0RF potassium chloride 20 mEq tablet,ER particles/crystals 20 meq PO DAILY Qty: 30 0RF thiamine HCl (vitamin B1) 100 mg tablet 50 mg PO DAILY Qty: 30 0RF sulfamethoxazole-trimethoprim [Bactrim DS] 800-160 mg tablet 1 tab PO BID Qty: 4 0RF chlordiazepoxide HCl 25 mg capsule 50 mg PO TID Qty: 5 0RF Rx Instructions: take 2 more doses on 05/16, 2 doses on 05/17, 1 dose of 05/18 and then stop Referrals: Silvia Kent DNP, [employer] [Primary Care Provider] - Stand Alone Forms: Patient Portal/API
--- NOTE | 2023-09-14 03:43 | PC.NURSE ---
MD Hightower at bedside.
[2023-09-14] MEDS: SODIUM CHLORIDE 0.9% 1,000 ML 1000 ML IV (04:00)
[2023-09-14] MEDS: ACETAMINOPHEN 325 MG TABLET 975 MG PO (04:01)
[2023-09-14] MEDS: PHENobarbital 65 MG/ML VIAL 260 MG IV (04:01)
--- NOTE | 2023-09-14 04:58 | PC.NURSE ---
friends leaving to go home. Ratna [phone] Camila [phone] They have said that her room mate (not listed) or they can come get the patient if needed. Denied any further questions.
[2023-09-14 05:24] LABS: INR 1.4 (0.9-1.3); Prothrombin Time 15.6 SECONDS (9.4-12.5)
[2023-09-14 05:26] LABS: Lactate 2HR (Lactic Acid Rflx) 2.7 mmol/L (0.7-2.1); PTT Partial Thromboplastin Tim 38 SECONDS (25.1-36.5)
[2023-09-14] MEDS: LORazepam 2 MG/ML INJ IV (06:38)
--- NOTE | 2023-09-14 07:50 | PC.NURSE ---
[facility]YW[employer]ER Note: [facility] called at 0748, bed available for patient at 1100
[2023-09-14] MEDS: chlordiazePOXIDE 25 MG CAPSULE 50 MG PO (07:56)
== END 2023-09-14 09:42 | disposition home or self-care (01) ==
PROVIDERS: Emergency Medicine; Emergency Provider Emergency Medicine; PCP Nurse Practitioner Family
DX: F10.129 Alcohol abuse with intoxication, unspecified (principal); Y90.7 Blood alcohol level of 200-239 mg/100 ml
CPT/HCPCS: 36415; 80053; 80320; 80329; 83605; 85025; 85610; 85730; 96361; 96374; 96375; 99284; G0480; J2060; J2560

== ENCOUNTER 2024-01-31 14:18 | Emergency (ER) | payer OTHER, MEDICAID, SELFPAY ==
[2023-05-15 02:07] VITALS: BMI 30.8
[2024-01-31] VITALS (7 sets, daily range): BP systolic 140–155; BP diastolic 74–98; PULSE 87–114; RESP 16–31; TEMP 36.9; O2SAT 95–100; BMI 33.0
--- NOTE | 2024-01-31 14:35 | ED_ITS ---
HPI - General Adult General Chief complaint: Toxicology Problem Stated complaint: anxiety, feels unsafe Time Seen by Provider: 01/31/24 14:28 Source: patient Mode of arrival: Ambulatory History of Present Illness HPI narrative: Patient is a 33-year-old female. Has had history of alcohol abuse/alcohol withdrawal in the past. Last time she was withdrawn from alcohol was earlier this year. She has spent time in detox in the past for alcohol. Her last drink was approximately 0400 hours this morning. She has been drinking for the past 3 days. Has never had a the on-call withdrawal seizure. She states she felt very anxious last evening and worsened today. She did contacted detox facility in his waiting for them to call back. She denies any suicidal ideation. She states she just feels like she was going to because of the anxiety. Denies any other drugs or alcohol. Related Data Home Medications Medication Instructions Recorded Confirmed citalopram 40 mg tablet 40 mg PO DAILY 05/14/23 05/14/23 pantoprazole 40 mg tablet,delayed 40 mg PO DAILY 05/14/23 05/14/23 release trazodone 100 mg tablet 100 mg PO ONCE PM 05/14/23 05/14/23 Previous Rx's Medication Instructions Recorded chlordiazepoxide HCl 25 mg capsule 50 mg (2 x 25 mg) PO TID #5 caps 05/16/23 folic acid 1 mg tablet 1 mg PO DAILY #30 tabs 05/16/23 multivitamin with folic acid 400 1 tab PO DAILY #30 tabs 05/16/23 mcg tablet (Tab-A-Fela) potassium chloride 20 mEq 20 meq PO DAILY #30 tabs 05/16/23 tablet,extended release(part/cryst) sulfamethoxazole 800 1 tab PO BID #4 tabs 05/16/23 mg-trimethoprim 160 mg tablet (Bactrim DS) thiamine HCl (vitamin B1) 100 mg 50 mg (1/2 x 100 mg) PO DAILY #30 05/16/23 tablet tabs Allergies Allergy/AdvReac Type Severity Reaction Status Date / Time aspirin Allergy Verified 01/31/24 14:24 naproxen [From Aleve] AdvReac Verified 01/31/24 14:24 Review of Systems Review of Systems ROS Unobtainable: All systems reviewed & are unremarkable except as noted in HPI and below Patient History Medical History Coagulopathy Pancytopenia Thrombocythemia Alcohol abuse Surgical History No history of previous surgery Family History Father Depression Mother No pertinent past medical history Social History household members: friend(s) Smoking Status: Former smoker alcohol intake: current Smoking Status: Former smoker alcohol intake frequency: 3 or more drinks per day Alcohol type: hard liquor Substance Use Type: does not use Exam Initial Vital Signs Initial Vital Signs: Vital Signs Temperature 98.4 F 01/31/24 14:21 Pulse Rate 114 H 01/31/24 14:21 Respiratory Rate 18 01/31/24 14:21 Blood Pressure 146/95 H 01/31/24 14:21 Pulse Oximetry 99 01/31/24 14:21 Oxygen Delivery Method Room Air 01/31/24 14:21 Const General: cooperative, comfortable and No ill appearing HENMT Head: normal to inspection and normocephalic Resp Effort & Inspection: normal respiratory effort Auscultation: clear to auscultation bilaterally Cardio Rate: regular rate Rhythm: regular rhythm GI Inspection: normal to inspection and non-distended Skin General: no rashes or lesions noted Neuro General: patient alert, patient awake and moves all extremities Extrem General: normal to inspection and capillary refill normal Course Orders Ordered: ED Orders 01/31/24 14:27 Urine Drug Screen, Rapid Stat 01/31/24 14:39 Acetaminophen Stat Complete Blood Count AUTO DIFF Stat Comprehensive Metabolic Panel Stat Ethanol (ETOH) Stat Free T4, Direct Thyroxine Stat Salicylate Stat Thyroid Stimulating Hormone Stat 01/31/24 14:57 COVID19 -Nasal RAPID Stat Discontinued Medications Thiamine HCl 100 mg/ Sodium (Chloride) 101 mls @ 404 mls/hr IV NOW ONE Stop: 01/31/24 14:38 Last Infusion: 01/31/24 15:20 Dose: Infused Documented By: Admin: 01/31/24 14:47 Dose: 404 mls/hr Documented By: BANDAR Sodium Chloride (Normal Saline 0.9%) 1,000 mls @ 1,000 mls/hr IV BOLUS ONE Stop: 01/31/24 16:04 Last Infusion: 01/31/24 16:57 Dose: Infused Documented By: Admin: 01/31/24 15:26 Dose: 1,000 mls/hr Documented By: BANDAR Ondansetron HCl (Ondansetron 4 Mg/2 Ml Inj) 4 mg IV NOW ONE Stop: 01/31/24 15:06 Last Admin: 01/31/24 15:27 Dose: 4 mg Documented By: BANDAR Phenobarbital (Phenobarbital 65 Mg/Ml Vial) 260 mg IV NOW ONE Stop: 01/31/24 14:37 Last Admin: 01/31/24 14:47 Dose: 260 mg Documented By: BANDAR Vital Signs Vital signs: Vital Signs - 8 hr 01/31/24 14:21 Temperature 98.4 F Pulse Rate 114 H Respiratory Rate 18 Blood Pressure 146/95 H Pulse Oximetry 99 Oxygen Delivery Method Room Air Medical Decision Making Lab Data 01/31/24 14:39 01/31/24 14:39 Labs: Lab Results 01/31/24 01/31/24 Range/Units 14:39 14:57 WBC 6.1 (4.5-11.0) X10^3/uL RBC 5.28 H (4.0-5.2) X10^6/uL Hgb 15.2 (12.0-16.0) g/dL Hct 45.2 (36-46) % MCV 85.6 (80-100) fL MCH 28.8 (26-34) PG MCHC 33.6 (30-36) % RDW 13.7 (11.6-14.8) % Plt Count 216 (150-400) X10^3/uL Neut % (Auto) 62.2 (50-75) % Lymph % (Auto) 31.7 (25-40) % [place] % (Auto) 3.8 (3-14) % Eos % (Auto) 1.1 L (2-4) % Baso % (Auto) 1.2 (0-2) % Neut # (Auto) 3800 (3377-7819) /uL Lymph # (Auto) 1900 (6298-9944) /uL [place] # (Auto) 200 (0-900) /uL Eos # (Auto) 100 (0-450) /uL Baso # (Auto) 100 (0-100) /uL Sodium 140 (137-145) mmol/L Potassium 4.0 (3.4-5.1) mmol/L Chloride 106 (98-107) mmol/L Carbon Dioxide 22 (22-32) mmol/L BUN 19 H (7-17) mg/dL Creatinine 0.62 (0.52-1.04) mg/dL Estimated GFR > 60 (>60) mL/min BUN/Creatinine Ratio 30.6 H (6-22) Glucose 121 H (70-100) mg/dL Calcium 8.9 (8.4-10.2) mg/dL Total Bilirubin 1.5 H (0.2-1.3) mg/dL AST 77 H (14-36) IU/L ALT 64 H (<35) IU/L Alkaline Phosphatase 100 (38-126) U/L Total Protein 7.5 (6.3-8.2) g/dL Albumin 4.6 (3.5-5.0) g/dL Globulin 2.9 (1.7-4.1) g/dL Albumin/Globulin Ratio 1.6 (1.0-2.8) TSH 1.12 (0.47-4.68) uIU/mL Free T4 1.11 (0.78-2.19) ng/dL Salicylates < 1.0 (<20) mg/dL Acetaminophen < 10 (10-30) ug/mL Ethyl Alcohol 152 H ( - 10) mg/dL SARS-CoV-2 (PCR) Negative (Negative) MDM Narrative Medical decision making narrative: Patient does have history of alcohol abuse. She is intoxicated here in the ER. Initially had a CIWA score of 13. This improved tremendously with phenobarbital. Patient has been in contact with a local alcohol detox facility. She was able to contact them while she was here in the emergency department and there is a bed available for her at 1800 hours. Plan will be is to keep her in the emergency department until 1700 hours and then discharge her. Her roommate will drive her to detox. Patient is comfortable with this plan. Discharge Plan Departure Patient Disposition: Home Clinical Impression: Alcohol withdrawal syndrome Instructions: DI for Alcohol Use Disorder Activity Restrictions/Additional Instructions: Your workup here in the emergency department is very reassuring. You were medically cleared to be discharged from the emergency department to go directly to detox. Return to the emergency department for new symptoms. Prescriptions: No Action citalopram 40 mg tablet 40 mg PO DAILY trazodone 100 mg tablet 100 mg PO ONCE PM pantoprazole 40 mg tablet,delayed release (DR/EC) 40 mg PO DAILY folic acid 1 mg Tablet 1 mg PO DAILY Qty: 30 0RF multivitamin with folic acid [Tab-A-Fela] 400 mcg Tablet 1 tab PO DAILY Qty: 30 0RF potassium chloride 20 mEq tablet,ER particles/crystals 20 meq PO DAILY Qty: 30 0RF thiamine HCl (vitamin B1) 100 mg tablet 50 mg PO DAILY Qty: 30 0RF sulfamethoxazole-trimethoprim [Bactrim DS] 800-160 mg tablet 1 tab PO BID Qty: 4 0RF chlordiazepoxide HCl 25 mg capsule 50 mg PO TID Qty: 5 0RF Rx Instructions: take 2 more doses on 05/16, 2 doses on 05/17, 1 dose of 05/18 and then stop Referrals: Silvia Kent, LISA, [employer] PHOTOGRAPHER [Primary Care Provider] - Stand Alone Forms: Patient Portal/API
[2024-01-31] MEDS: THIAMINE 100 MG in SODIUM CHLORIDE 0.9% 100 ML 404 MG IV (14:47)
[2024-01-31] MEDS: PHENobarbital 65 MG/ML VIAL 260 MG IV (14:47)
[2024-01-31 14:49] LABS: Add Manual Diff / Slide Review NO; Basophils Absolute Auto 100 /uL (0-100); Basophils Percent Auto 1.2 % (0-2); Eosinophils Absolute Auto 100 /uL (0-450); Eosinophils Percent Auto 1.1 % (2-4); Hematocrit 45.2 % (36-46); Hemoglobin 15.2 g/dL (12.0-16.0); Lymphocytes Absolute Auto 1900 /uL (1100-4500); Lymphocytes Percent Auto 31.7 % (25-40); Mean Corpuscular HGB Conc 33.6 % (30-36); Mean Corpuscular Hemoglobin 28.8 PG (26-34); Mean Corpuscular Volume 85.6 fL (80-100); Monocytes Absolute Auto 200 /uL (0-900); Monocytes Percent Auto 3.8 % (3-14); Neutrophils Absolute Auto 3800 /uL (1500-7000); Neutrophils Percent Auto 62.2 % (50-75); Platelet Count 216 X10^3/uL (150-400); Red Blood Cell Count 5.28 X10^6/uL (4.0-5.2); Red Cell Distribution Width 13.7 % (11.6-14.8); White Blood Cell Count 6.1 X10^3/uL (4.5-11.0)
[2024-01-31 15:03] LABS: Acetaminophen < 10 ug/mL (10-30); Alanine Aminotransferase 64 IU/L (<35); Albumin 4.6 g/dL (3.5-5.0); Albumin Globulin Ratio 1.6 (1.0-2.8); Alkaline Phosphatase 100 U/L (38-126); Aspartate Aminotransferase 77 IU/L (14-36); BUN Creatinine Ratio 30.6 (6-22); Bilirubin Total 1.5 mg/dL (0.2-1.3); Blood Urea Nitrogen 19 mg/dL (7-17); Calcium 8.9 mg/dL (8.4-10.2); Carbon Dioxide 22 mmol/L (22-32); Chloride 106 mmol/L (98-107); Estimated Glomerular Filt Rate > 60 mL/min (>60); Ethanol (ETOH) 152 mg/dL; Globulin 2.9 g/dL (1.7-4.1); Glucose 121 mg/dL (70-100); HEMOLYSIS < 15 (0-50); Salicylate < 1.0 mg/dL (<20); Sodium 140 mmol/L (137-145); Total Protein 7.5 g/dL (6.3-8.2)
[2024-01-31 15:19] LABS: Free T4, Direct Thyroxine 1.11 ng/dL (0.78-2.19)
[2024-01-31 15:19] LABS: COVID19 -Nasal RAPID Negative (Negative)
[2024-01-31] MEDS: SODIUM CHLORIDE 0.9% 1,000 ML 1000 ML IV (15:26)
[2024-01-31] MEDS: ONDANSETRON 4 MG/2 ML INJ IV (15:27)
[2024-01-31 15:33] LABS: Thyroid Stimulating Hormone 1.12 uIU/mL (0.47-4.68)
== END 2024-01-31 17:01 | disposition home or self-care (01) ==
PROVIDERS: Emergency Provider Emergency Medicine; PCP Nurse Practitioner Family
DX: F10.939 Alcohol use, unspecified with withdrawal, unspecified (principal); Z11.52 Encounter for screening for COVID-19
CPT/HCPCS: 36415; 80053; 80320; 80329; 84439; 84443; 85025; 87635; 99284; G0480; J2405; J2560

== ENCOUNTER 2024-01-31 18:44 | Emergency (ER) | payer OTHER, MEDICAID, SELFPAY ==
[2023-05-15 02:07] VITALS: BMI 30.8
[2024-01-31 18:54] VITALS: BP 132/93; PULSE 89; RESP 19; TEMP 36.9; O2SAT 95
[2024-01-31] MEDS: LORazepam 0.5 MG TABLET 1 MG PO (19:20)
[2024-01-31 19:30] VITALS: BP 144/86; PULSE 93; RESP 18; O2SAT 96
[2024-01-31 19:36] VITALS: PULSE 91; O2SAT 97
[2024-01-31 19:37] LABS: Ethanol (ETOH) 76 mg/dL
--- NOTE | 2024-01-31 19:56 | ED.ANXIETY ---
HPI - Anxiety General Chief Complaint: Anxiety Stated Complaint: Returning; Alcohol Withdrawal, Anxiety Time Seen by Provider: 01/31/24 18:57 History of Present Illness HPI narrative: 33-year-old female evaluated here earlier today for requested detox services from alcohol, was scheduled for placement at [facility] in [place], with planned intake 6:00 p.m. this evening, which has been moved to 10:30 p.m., went home, feels uncomfortable waiting that long, returns for requested further treatment. Denies interim alcohol or other drug use. No seizure activity. No incontinence of urine or stool. No shaking activity. She denies thoughts of hurting herself or others. Related Data Home Medications Medication Instructions Recorded Confirmed citalopram 40 mg tablet 40 mg PO DAILY 05/14/23 05/14/23 pantoprazole 40 mg tablet,delayed 40 mg PO DAILY 05/14/23 05/14/23 release trazodone 100 mg tablet 100 mg PO ONCE PM 05/14/23 05/14/23 Previous Rx's Medication Instructions Recorded chlordiazepoxide HCl 25 mg capsule 50 mg (2 x 25 mg) PO TID #5 caps 05/16/23 folic acid 1 mg tablet 1 mg PO DAILY #30 tabs 05/16/23 multivitamin with folic acid 400 1 tab PO DAILY #30 tabs 05/16/23 mcg tablet (Tab-A-Fela) potassium chloride 20 mEq 20 meq PO DAILY #30 tabs 05/16/23 tablet,extended release(part/cryst) sulfamethoxazole 800 1 tab PO BID #4 tabs 05/16/23 mg-trimethoprim 160 mg tablet (Bactrim DS) thiamine HCl (vitamin B1) 100 mg 50 mg (1/2 x 100 mg) PO DAILY #30 05/16/23 tablet tabs Allergies Allergy/AdvReac Type Severity Reaction Status Date / Time aspirin Allergy Verified 01/31/24 14:24 naproxen [From Aleve] AdvReac Verified 01/31/24 14:24 Review of Systems Review of Systems Narrative: see HPI Patient History Medical History Coagulopathy Pancytopenia Thrombocythemia Alcohol abuse Surgical History No history of previous surgery Family History Father Depression Mother No pertinent past medical history Social History household members: friend(s) Smoking Status: Former smoker alcohol intake: current Smoking Status: Former smoker alcohol intake frequency: 3 or more drinks per day Alcohol type: hard liquor Substance Use Type: does not use Exam Narrative Exam Narrative: GENERAL: Well-developed patient, in mild distress. HEAD: Atraumatic. Normocephalic. EYES: Pupils equal round and reactive. Extraocular motions intact. No scleral icterus. No injection or drainage. ENT: Nose without bleeding, purulent drainage. Throat without erythema, tonsillar hypertrophy or exudate. Airway patent. NECK: Trachea midline. Non tender CARDIOVASCULAR: Regular rate and rhythm without murmurs, gallops, or rubs. RESPIRATORY: Clear to auscultation. Breath sounds equal bilaterally. No wheezes, rales, or rhonchi. GASTROINTESTINAL: Abdomen soft, non-tender, nondistended. EXTREMITIES: No edema or joint tenderness. BACK: Nontender without deformity or crepitance. No flank tenderness. NEURO: AOx3. SKIN: No rash or erythema of visible areas Initial Vital Signs Initial Vital Signs: Vital Signs Temperature 98.4 F 01/31/24 18:54 Pulse Rate 89 01/31/24 18:54 Respiratory Rate 19 01/31/24 18:54 Blood Pressure 132/93 H 01/31/24 18:54 Pulse Oximetry 95 01/31/24 18:54 Oxygen Delivery Method Room Air 01/31/24 18:54 Course Orders Ordered: ED Orders 01/31/24 19:15 Ethanol (ETOH) Stat Discontinued Medications Lorazepam (Lorazepam 0.5 Mg Tablet) 1 mg PO NOW ONE Stop: 01/31/24 19:14 Last Admin: 01/31/24 19:20 Dose: 1 mg Documented By: AB Vital Signs Vital signs: Vital Signs - 8 hr 01/31/24 18:54 01/31/24 19:30 01/31/24 19:36 Temperature 98.4 F Pulse Rate 89 93 H 91 H Respiratory Rate 19 18 Blood Pressure 132/93 H 144/86 H Pulse Oximetry 95 96 97 Oxygen Delivery Method Room Air Room Air 01/31/24 20:00 01/31/24 20:00 01/31/24 20:30 Temperature Pulse Rate 95 H Respiratory Rate Blood Pressure 157/94 H 166/87 H Pulse Oximetry 97 Oxygen Delivery Method Room Air 01/31/24 20:30 Temperature Pulse Rate 92 H Respiratory Rate Blood Pressure Pulse Oximetry 97 Oxygen Delivery Method Room Air MDM - Anxiety Lab Data Attestation: I reviewed the patient's lab results. Labs: Lab Results 01/31/24 Range/Units 19:15 Ethyl Alcohol 76 H ( - 10) mg/dL MDM Narrative Medical decision making narrative: 33-year-old female request for alcohol detox services and also anxiety, was evaluated earlier today, with plan for follow up [facility] inpatient detox facility intake 6:30 p.m., intake time was changed to 10:30 p.m., she went home and did not feel comfortable waiting that long, here for further treatment pending that intake appointment. Afebrile, sirs screen negative, no tremulousness, unremarkable vitals. No seizure activity suspected. P.o. Ativan given. She has a ride with roommate, to be able to go to her 1030pm intake, we will observe patient through a proximally 9:00 p.m. and then discharged with POV transport to 10:30 p.m. intake [facility] in [place] as planned. Discharge with friend to drive her to inpatient psychiatric detox facility as planned Discharge Plan Departure Patient Disposition: Home Clinical Impression: Alcohol abuse Activity Restrictions/Additional Instructions: Alcohol abuse, prior evaluation earlier today, planned for alcohol rehab placement center [facility], planned intake 6:30 p.m. today, was apparently moved by the facility 10:30 p.m., you did not feel comfortable with this delay and wanted further treatment here, you were given an oral dose of Ativan. He seemed to be stable. Discharge now to go to the [facility] to a facility as planned for 10:30 p.m. intake. Prescriptions: No Action citalopram 40 mg tablet 40 mg PO DAILY trazodone 100 mg tablet 100 mg PO ONCE PM pantoprazole 40 mg tablet,delayed release (DR/EC) 40 mg PO DAILY folic acid 1 mg Tablet 1 mg PO DAILY Qty: 30 0RF multivitamin with folic acid [Tab-A-Fela] 400 mcg Tablet 1 tab PO DAILY Qty: 30 0RF potassium chloride 20 mEq tablet,ER particles/crystals 20 meq PO DAILY Qty: 30 0RF thiamine HCl (vitamin B1) 100 mg tablet 50 mg PO DAILY Qty: 30 0RF sulfamethoxazole-trimethoprim [Bactrim DS] 800-160 mg tablet 1 tab PO BID Qty: 4 0RF chlordiazepoxide HCl 25 mg capsule 50 mg PO TID Qty: 5 0RF Rx Instructions: take 2 more doses on 05/16, 2 doses on 05/17, 1 dose of 05/18 and then stop Referrals: Silvia Kent, LISA, P[employer] UP TR[employer] DRIVER [Primary Care Provider] - Stand Alone Forms: Patient Portal/API
[2024-01-31 20:00] VITALS: BP 157/94; PULSE 95; O2SAT 97
[2024-01-31 20:30] VITALS: BP 166/87; PULSE 92; O2SAT 97
== END 2024-01-31 20:42 | disposition home or self-care (01) ==
PROVIDERS: Emergency Provider Emergency Medicine; PCP Nurse Practitioner Family
DX: F10.10 Alcohol abuse, uncomplicated (principal); F41.9 Anxiety disorder, unspecified; F10.939 Alcohol use, unspecified with withdrawal, unspecified; Z11.52 Encounter for screening for COVID-19; Y90.3 Blood alcohol level of 60-79 mg/100 ml
CPT/HCPCS: 36415; 80053; 80320; 80329; 84439; 84443; 85025; 87635; 96365; 96375; 99283; 99284; G0480; J2405; J2560

== ENCOUNTER 2024-03-21 16:34 | Emergency (ER) | payer OTHER, MEDICAID, SELFPAY ==
[2023-05-15 02:07] VITALS: BMI 30.8
[2024-03-21] VITALS (13 sets, daily range): BP systolic 130–162; BP diastolic 89–101; PULSE 91–117; RESP 11–25; TEMP 36.6; O2SAT 95–98; BMI 33.5
--- NOTE | 2024-03-21 17:11 | ED.ALCOHOL ---
HPI - Alcohol <Jewell Hightower DO - Last Filed: 03/28/24 16:30> General Chief Complaint: Toxicology Problem Stated Complaint: anxiety, ETOH withdraw Time Seen by Provider: 03/21/24 16:47 History of Present Illness HPI narrative: Patient is a 33-year-old female history of anxiety and alcohol abuse presenting today with nausea vomiting and anxiety. She reports that she was previously sober for 20 days but started binge drinking 6 days ago. She drank quite heavily for about 2-1/2 days and then started tapering off. She is done this before. But has been throwing up since yesterday overall not feeling well. She denies any chest pain or shortness of breath Related Data Home Medications Medication Instructions Recorded Confirmed citalopram 40 mg tablet 40 mg PO DAILY 05/14/23 05/14/23 pantoprazole 40 mg tablet,delayed 40 mg PO DAILY 05/14/23 05/14/23 release trazodone 100 mg tablet 100 mg PO ONCE PM 05/14/23 05/14/23 Previous Rx's Medication Instructions Recorded chlordiazepoxide HCl 25 mg capsule 50 mg (2 x 25 mg) PO TID #5 caps 05/16/23 folic acid 1 mg tablet 1 mg PO DAILY #30 tabs 05/16/23 multivitamin with folic acid 400 1 tab PO DAILY #30 tabs 05/16/23 mcg tablet (Tab-A-Fela) potassium chloride 20 mEq 20 meq PO DAILY #30 tabs 05/16/23 tablet,extended release(part/cryst) sulfamethoxazole 800 1 tab PO BID #4 tabs 05/16/23 mg-trimethoprim 160 mg tablet (Bactrim DS) thiamine HCl (vitamin B1) 100 mg 50 mg (1/2 x 100 mg) PO DAILY #30 05/16/23 tablet tabs Allergies Allergy/AdvReac Type Severity Reaction Status Date / Time aspirin Allergy Verified 01/31/24 14:24 naproxen [From Aleve] AdvReac Verified 01/31/24 14:24 Patient History <Jewell Hightower DO - Last Filed: 03/28/24 16:30> Medical History Coagulopathy Pancytopenia Thrombocythemia Alcohol abuse Surgical History No history of previous surgery Family History Father Depression Mother No pertinent past medical history Social History household members: friend(s) Smoking Status: Former smoker alcohol intake: current Smoking Status: Former smoker alcohol intake frequency: 3 or more drinks per day Alcohol type: hard liquor Substance Use Type: does not use Exam <Jewell Hightower DO - Last Filed: 03/28/24 16:30> Initial Vital Signs Initial Vital Signs: Vital Signs Pulse Rate 115 H 03/21/24 16:38 Blood Pressure 147/99 H 03/21/24 16:38 Pulse Oximetry 96 03/21/24 16:38 GENERAL: Alert 33-year-old female anxious HEENT: Head atraumatic,EOMI, pupils reactive, face symmetric, moist mucous membranes CARDIOVASCULAR: Regular rate and rhythm without murmurs, rubs or gallops. RESPIRATORY: Breath sounds equal bilaterally, no wheezes rales or rhonchi. ABDOMEN: Soft, nontender. Normoactive bowel sounds all 4 quadrants. No guarding or rebound. EXTREMITIES: Normal range of motion, no clubbing or edema. Neurovascularly intact NEUROLOGICAL: Alert and oriented x4.Normal gait and speech. Mild tremors SKIN: Warm, dry, no laceration, no petechiae, no rashes or lesions. <Kevin Fung DO - Last Filed: 03/21/24 20:59> Initial Vital Signs Initial Vital Signs: Vital Signs Pulse Rate 115 H 03/21/24 16:38 Blood Pressure 147/99 H 03/21/24 16:38 Pulse Oximetry 96 03/21/24 16:38 Course <Jewell Hightower DO - Last Filed: 03/28/24 16:30> Orders Ordered: Discontinued Medications Sodium Chloride (Normal Saline 0.9%) 1,000 mls @ 1,000 mls/hr IV BOLUS ONE Stop: 03/21/24 18:03 Last Infusion: 03/21/24 18:27 Dose: Infused Documented By: Admin: 03/21/24 17:18 Dose: 1,000 mls/hr Documented By: RB Lorazepam (Lorazepam 2 Mg/Ml Inj) 1 mg IV NOW ONE Stop: 03/21/24 17:05 Last Admin: 03/21/24 17:18 Dose: 1 mg Documented By: EVELYN Ondansetron HCl (Ondansetron 4 Mg Odt) 4 mg SL NOW ONE Stop: 03/21/24 20:20 Last Admin: 03/21/24 20:29 Dose: 4 mg Documented By: KRYSTINA Ondansetron HCl (Ondansetron 4 Mg Odt Prepack) 1 bottle MISC DIRECTED ONE Stop: 03/21/24 20:20 Last Admin: 03/21/24 20:29 Dose: 1 bottle Documented By: KRYSTINA Phenobarbital (Phenobarbital 65 Mg/Ml Vial) 130 mg IV NOW ONE Stop: 03/21/24 17:05 Last Admin: 03/21/24 17:17 Dose: 130 mg Documented By: EVELYN Vital Signs Vital signs: Vital Signs - 8 hr 03/21/24 16:38 03/21/24 16:38 03/21/24 16:41 Temperature Pulse Rate 115 H 111 H Respiratory Rate 12 Blood Pressure 147/99 H Pulse Oximetry 96 97 Oxygen Delivery Method 03/21/24 16:41 03/21/24 16:43 03/21/24 17:00 Temperature 97.8 F Pulse Rate 117 H Respiratory Rate 20 Blood Pressure 142/100 H 147/99 H 162/95 H Pulse Oximetry 96 Oxygen Delivery Method Room Air 03/21/24 17:00 03/21/24 17:28 03/21/24 17:28 Temperature Pulse Rate 104 H 99 H Respiratory Rate 24 24 Blood Pressure 136/97 H Pulse Oximetry 96 95 Oxygen Delivery Method 03/21/24 17:30 03/21/24 17:30 03/21/24 18:00 Temperature Pulse Rate 104 H 100 H Respiratory Rate 25 H 20 Blood Pressure 137/98 H Pulse Oximetry 97 97 Oxygen Delivery Method 03/21/24 18:13 03/21/24 18:13 03/21/24 18:30 Temperature Pulse Rate 99 H 91 H Respiratory Rate 24 20 Blood Pressure 133/90 Pulse Oximetry 97 96 Oxygen Delivery Method 03/21/24 18:30 03/21/24 19:00 03/21/24 19:00 Temperature Pulse Rate 98 H Respiratory Rate 17 Blood Pressure 144/101 H 137/94 H Pulse Oximetry Oxygen Delivery Method 03/21/24 19:30 03/21/24 19:30 03/21/24 19:47 Temperature Pulse Rate 100 H 107 H Respiratory Rate 11 L 14 Blood Pressure 130/96 H Pulse Oximetry 97 98 Oxygen Delivery Method 03/21/24 19:47 03/21/24 20:09 Temperature Pulse Rate 113 H Respiratory Rate 20 Blood Pressure 144/89 H Pulse Oximetry 95 Oxygen Delivery Method <Kevin Fung DO - Last Filed: 03/21/24 20:59> Orders Ordered: Discontinued Medications Sodium Chloride (Normal Saline 0.9%) 1,000 mls @ 1,000 mls/hr IV BOLUS ONE Stop: 03/21/24 18:03 Last Infusion: 03/21/24 18:27 Dose: Infused Documented By: Admin: 03/21/24 17:18 Dose: 1,000 mls/hr Documented By: EVELYN Lorazepam (Lorazepam 2 Mg/Ml Inj) 1 mg IV NOW ONE Stop: 03/21/24 17:05 Last Admin: 03/21/24 17:18 Dose: 1 mg Documented By: EVELYN Ondansetron HCl (Ondansetron 4 Mg Odt) 4 mg SL NOW ONE Stop: 03/21/24 20:20 Last Admin: 03/21/24 20:29 Dose: 4 mg Documented By: KRYSTINA Ondansetron HCl (Ondansetron 4 Mg Odt Prepack) 1 bottle MISC DIRECTED ONE Stop: 03/21/24 20:20 Last Admin: 03/21/24 20:29 Dose: 1 bottle Documented By: KRYSTINA Phenobarbital (Phenobarbital 65 Mg/Ml Vial) 130 mg IV NOW ONE Stop: 03/21/24 17:05 Last Admin: 03/21/24 17:17 Dose: 130 mg Documented By: EVELYN Vital Signs Vital signs: Vital Signs - 8 hr 03/21/24 16:38 03/21/24 16:38 03/21/24 16:41 Temperature Pulse Rate 115 H 111 H Respiratory Rate 12 Blood Pressure 147/99 H Pulse Oximetry 96 97 Oxygen Delivery Method 03/21/24 16:41 03/21/24 16:43 03/21/24 17:00 Temperature 97.8 F Pulse Rate 117 H Respiratory Rate 20 Blood Pressure 142/100 H 147/99 H 162/95 H Pulse Oximetry 96 Oxygen Delivery Method Room Air 03/21/24 17:00 03/21/24 17:28 03/21/24 17:28 Temperature Pulse Rate 104 H 99 H Respiratory Rate 24 24 Blood Pressure 136/97 H Pulse Oximetry 96 95 Oxygen Delivery Method 03/21/24 17:30 03/21/24 17:30 03/21/24 18:00 Temperature Pulse Rate 104 H 100 H Respiratory Rate 25 H 20 Blood Pressure 137/98 H Pulse Oximetry 97 97 Oxygen Delivery Method 03/21/24 18:13 03/21/24 18:13 03/21/24 18:30 Temperature Pulse Rate 99 H 91 H Respiratory Rate 24 20 Blood Pressure 133/90 Pulse Oximetry 97 96 Oxygen Delivery Method 03/21/24 18:30 03/21/24 19:00 03/21/24 19:00 Temperature Pulse Rate 98 H Respiratory Rate 17 Blood Pressure 144/101 H 137/94 H Pulse Oximetry Oxygen Delivery Method 03/21/24 19:30 03/21/24 19:30 03/21/24 19:47 Temperature Pulse Rate 100 H 107 H Respiratory Rate 11 L 14 Blood Pressure 130/96 H Pulse Oximetry 97 98 Oxygen Delivery Method 03/21/24 19:47 03/21/24 20:09 Temperature Pulse Rate 113 H Respiratory Rate 20 Blood Pressure 144/89 H Pulse Oximetry 95 Oxygen Delivery Method MDM - Alcohol <Jewell Hightower, DO - Last Filed: 03/28/24 16:30> Lab Data 03/21/24 17:00 03/21/24 18:05 Labs: Lab Results 03/21/24 03/21/24 Range/Units 17:00 18:05 WBC 7.1 (4.5-11.0) X10^3/uL RBC 5.53 H (4.0-5.2) X10^6/uL Hgb 16.0 (12.0-16.0) g/dL Hct 47.1 H (36-46) % MCV 85.1 (80-100) fL MCH 28.9 (26-34) PG MCHC 34.0 (30-36) % RDW 14.0 (11.6-14.8) % Plt Count 237 (150-400) X10^3/uL Neut % (Auto) 50.6 (50-75) % Lymph % (Auto) 40.4 H (25-40) % Logan % (Auto) 4.5 (3-14) % Eos % (Auto) 2.1 (2-4) % Baso % (Auto) 2.4 H (0-2) % Neut # (Auto) 3600 (9186-6404) /uL Lymph # (Auto) 2900 (1262-6443) /uL Logan # (Auto) 300 (0-900) /uL Eos # (Auto) 100 (0-450) /uL Baso # (Auto) 200 H (0-100) /uL Sodium 144 (137-145) mmol/L Potassium 3.9 (3.4-5.1) mmol/L Chloride 109 H (98-107) mmol/L Carbon Dioxide 22 (22-32) mmol/L BUN 11 (7-17) mg/dL Creatinine 0.63 (0.52-1.04) mg/dL Estimated GFR > 60 (>60) mL/min BUN/Creatinine Ratio 17.5 (6-22) Glucose 122 H (70-100) mg/dL Calcium 8.2 L (8.4-10.2) mg/dL Total Bilirubin 1.4 H (0.2-1.3) mg/dL AST 115 H (14-36) IU/L ALT 99 H (<35) IU/L Alkaline Phosphatase 100 (38-126) U/L Total Protein 6.9 (6.3-8.2) g/dL Albumin 4.2 (3.5-5.0) g/dL Globulin 2.7 (1.7-4.1) g/dL Albumin/Globulin Ratio 1.6 (1.0-2.8) Lipase 95 (23-300) U/L Ethyl Alcohol 275 H ( - 10) mg/dL CORWIN Narrative Medical decision making narrative: CORWIN CC: Alcohol abuse anxiety Complicating co-morbidities: Alcohol abuse Medical records reviewed: Multiple previous ED visits for alcohol withdrawal and anxiety. She has previously been at [facility]. Last seen in the ED on January 30 Differential considered: Alcohol withdrawal pancreatitis Exam documented above, pertinent findings include: Mildly anxious mild tremors abdomen soft nontender Lab Test results independently reviewed as above. Pertinent findings: [ ] Independently reviewed EKG as above Imaging studies independently reviewed: Consultations: none Treatments: Phenobarb and Ativan, IV fluids Re-evaluations: [ ] Discussion: 33-year-old female history of alcohol abuse presenting today with anxiety and withdrawal. She has been here many times with alcohol withdrawal. She has not wanting detox today just wanting to feel better. Patient signed out to Dr. Fung for further management and disposition awaiting blood work Dr fung: Received turned over. Review patient's history and physical exam. Patient does have an elevated alcohol level. She was much more calm after receiving medications prior to my assumption care. Had a discussion with the patient. She states she was not interested in being transferred to a detox facility from the emergency department. She has been seen by social work. She was given resources. Patient continues to remain stable. Is somewhat somnolent but is able to get up and walk to the bathroom in his tolerating oral intake. She does have someone who can be with her this evening. Discharge patient home with return precautions. <Kevin Fung, DO - Last Filed: 03/21/24 20:59> Lab Data Attestation: I reviewed the patient's lab results. Labs: Lab Results 03/21/24 03/21/24 Range/Units 17:00 18:05 WBC 7.1 (4.5-11.0) X10^3/uL RBC 5.53 H (4.0-5.2) X10^6/uL Hgb 16.0 (12.0-16.0) g/dL Hct 47.1 H (36-46) % MCV 85.1 (80-100) fL MCH 28.9 (26-34) PG MCHC 34.0 (30-36) % RDW 14.0 (11.6-14.8) % Plt Count 237 (150-400) X10^3/uL Neut % (Auto) 50.6 (50-75) % Lymph % (Auto) 40.4 H (25-40) % Logan % (Auto) 4.5 (3-14) % Eos % (Auto) 2.1 (2-4) % Baso % (Auto) 2.4 H (0-2) % Neut # (Auto) 3600 (8297-3627) /uL Lymph # (Auto) 2900 (0283-9760) /uL Logan # (Auto) 300 (0-900) /uL Eos # (Auto) 100 (0-450) /uL Baso # (Auto) 200 H (0-100) /uL Sodium 144 (137-145) mmol/L Potassium 3.9 (3.4-5.1) mmol/L Chloride 109 H (98-107) mmol/L Carbon Dioxide 22 (22-32) mmol/L BUN 11 (7-17) mg/dL Creatinine 0.63 (0.52-1.04) mg/dL Estimated GFR > 60 (>60) mL/min BUN/Creatinine Ratio 17.5 (6-22) Glucose 122 H (70-100) mg/dL Calcium 8.2 L (8.4-10.2) mg/dL Total Bilirubin 1.4 H (0.2-1.3) mg/dL AST 115 H (14-36) IU/L ALT 99 H (<35) IU/L Alkaline Phosphatase 100 (38-126) U/L Total Protein 6.9 (6.3-8.2) g/dL Albumin 4.2 (3.5-5.0) g/dL Globulin 2.7 (1.7-4.1) g/dL Albumin/Globulin Ratio 1.6 (1.0-2.8) Lipase 95 (23-300) U/L Ethyl Alcohol 275 H ( - 10) mg/dL MDM Narrative Medical decision making narrative: MDM CC: Alcohol abuse anxiety Complicating co-morbidities: Alcohol abuse Medical records reviewed: Multiple previous ED visits for alcohol withdrawal and anxiety. She has previously been at [facility]. Last seen in the ED on January 30 Differential considered: Alcohol withdrawal pancreatitis Exam documented above, pertinent findings include: Mildly anxious mild tremors abdomen soft nontender Lab Test results independently reviewed as above. Pertinent findings: [ ] Independently reviewed EKG as above Imaging studies independently reviewed: Consultations: [ ] Treatments: Phenobarb and Ativan, IV fluids Re-evaluations: [ ] Discussion: 33-year-old female history of alcohol abuse presenting today with anxiety and withdrawal. She has been here many times with alcohol withdrawal. She has not wanting detox today just wanting to feel better. Patient signed out to Dr. Fung for further management and disposition awaiting blood work Dr fung: Received turned over. Review patient's history and physical exam. Patient does have an elevated alcohol level. She was much more calm after receiving medications prior to my assumption care. Had a discussion with the patient. She states she was not interested in being transferred to a detox facility from the emergency department. She has been seen by social work. She was given resources. Patient continues to remain stable. Is somewhat somnolent but is able to get up and walk to the bathroom in his tolerating oral intake. She does have someone who can be with her this evening. Discharge patient home with return precautions. Discharge Plan Departure Patient Disposition: Home Clinical Impression: Alcoholic intoxication Instructions: DI for Alcohol Use Disorder Activity Restrictions/Additional Instructions: Highly recommend that you consider detox/rehab. You can use the resources that you were provided today to help you with that process. You can return to the emergency department at any point if needed. No driving for the next 24 hours or in the future if you drink alcohol. Prescriptions: No Action citalopram 40 mg tablet 40 mg PO DAILY trazodone 100 mg tablet 100 mg PO ONCE PM pantoprazole 40 mg tablet,delayed release (DR/EC) 40 mg PO DAILY folic acid 1 mg Tablet 1 mg PO DAILY Qty: 30 0RF multivitamin with folic acid [Tab-A-Fela] 400 mcg Tablet 1 tab PO DAILY Qty: 30 0RF potassium chloride 20 mEq tablet,ER particles/crystals 20 meq PO DAILY Qty: 30 0RF thiamine HCl (vitamin B1) 100 mg tablet 50 mg PO DAILY Qty: 30 0RF sulfamethoxazole-trimethoprim [Bactrim DS] 800-160 mg tablet 1 tab PO BID Qty: 4 0RF chlordiazepoxide HCl 25 mg capsule 50 mg PO TID Qty: 5 0RF Rx Instructions: take 2 more doses on 05/16, 2 doses on 05/17, 1 dose of 05/18 and then stop Referrals: Silvia Kent, LISA, P[employer] MACHINE BACK TENDER [Primary Care Provider] - Stand Alone Forms: Patient Portal/API
[2024-03-21 17:13] LABS: Add Manual Diff / Slide Review NO; Basophils Absolute Auto 200 /uL (0-100); Basophils Percent Auto 2.4 % (0-2); Eosinophils Absolute Auto 100 /uL (0-450); Eosinophils Percent Auto 2.1 % (2-4); Hematocrit 47.1 % (36-46); Lymphocytes Absolute Auto 2900 /uL (1100-4500); Lymphocytes Percent Auto 40.4 % (25-40); Mean Corpuscular Hemoglobin 28.9 PG (26-34); Mean Corpuscular Volume 85.1 fL (80-100); Monocytes Absolute Auto 300 /uL (0-900); Monocytes Percent Auto 4.5 % (3-14); Neutrophils Absolute Auto 3600 /uL (1500-7000); Neutrophils Percent Auto 50.6 % (50-75); Platelet Count 237 X10^3/uL (150-400); Red Blood Cell Count 5.53 X10^6/uL (4.0-5.2); White Blood Cell Count 7.1 X10^3/uL (4.5-11.0)
[2024-03-21] MEDS: PHENobarbital 65 MG/ML VIAL 130 MG IV (17:17)
[2024-03-21] MEDS: LORazepam 2 MG/ML INJ 1 MG IV (17:18)
[2024-03-21] MEDS: SODIUM CHLORIDE 0.9% 1,000 ML 1000 ML IV (17:18)
--- NOTE | 2024-03-21 18:28 | CM.SWNOTE ---
ED ART DEPARTMENT HEAD Note: Patient is a 33yo female, resident of [place], presented to the ED with symptoms of anxiety and ETOH withdrawal. Patient explains they are having high anxiety, tremors, headache, nausea and a dissociation hallucination. Patient's primary care provider is RICHARD Cordero and insurance is [facility] and Medicaid. Reviewed chart and discussed patient with ED staff. Per triage, pt drinks about a pint of vodka a day and last drank at 1145 on 03/21/24. Patient has a CIWA at 10, initially. ART DEPARTMENT HEAD entered room to meet with patient, introduced self and role. Pt endorses she had attempted detox in the past and feels prepared to attempt detox on her own with the support of her roommate who is sober. Patient explains she attends meetings at the [facility] but does not have a AA sponsor currently. Patient states she does not have current MH or [facility] Providers. Patient expressed grief with coming in today as she is anxious others will grease and tallow pumper her. ART DEPARTMENT HEAD utilized reflective listening and validated patient's choice to come to the ED for additional medication support. Patient did not want a [facility] referral at this time and declines inpatient rehab or detox because she wants to prioritize a PCP appointment on 03/24. ART DEPARTMENT HEAD discussed [facility] OP in the future and pt agreed to resources for [facility] OP, ART DEPARTMENT HEAD provided handouts for review. ART DEPARTMENT HEAD reviews this with ED provider, Dr. Fung, who indicates agreement and understanding. Plan: Pt to discharge home with roommate to transport when medically stable/after medication course. Patient to follow up with PCP on Saturday, 03/24 and [facility] when appropriate. ANTHONY Mcdonough
[2024-03-21 18:30] LABS: Alanine Aminotransferase 99 IU/L (<35); Albumin 4.2 g/dL (3.5-5.0); Albumin Globulin Ratio 1.6 (1.0-2.8); Alkaline Phosphatase 100 U/L (38-126); Aspartate Aminotransferase 115 IU/L (14-36); BUN Creatinine Ratio 17.5 (6-22); Bilirubin Total 1.4 mg/dL (0.2-1.3); Blood Urea Nitrogen 11 mg/dL (7-17); Calcium 8.2 mg/dL (8.4-10.2); Carbon Dioxide 22 mmol/L (22-32); Chloride 109 mmol/L (98-107); Estimated Glomerular Filt Rate > 60 mL/min (>60); Ethanol (ETOH) 275 mg/dL; Globulin 2.7 g/dL (1.7-4.1); Glucose 122 mg/dL (70-100); HEMOLYSIS < 15 (0-50); Lipase 95 U/L (23-300); Potassium 3.9 mmol/L (3.4-5.1); Sodium 144 mmol/L (137-145); Total Protein 6.9 g/dL (6.3-8.2)
--- NOTE | 2024-03-21 19:14 | PC.NURSE ---
This RN checked on patient and they were resting with eyes closed with evident chest rise and fall.
--- NOTE | 2024-03-21 19:31 | PC.NURSE ---
pt resting quietly on stretcher room mate at bedside no complaints at this time
[2024-03-21] MEDS: ONDANSETRON 4 MG ODT PREPACK 1 BOTTLE MISC (20:29)
[2024-03-21] MEDS: ONDANSETRON 4 MG ODT SL (20:29)
== END 2024-03-21 20:35 | disposition home or self-care (01) ==
PROVIDERS: Emergency Medicine; Emergency Provider Emergency Medicine; PCP Nurse Practitioner Family
DX: F10.129 Alcohol abuse with intoxication, unspecified (principal); Y90.8 Blood alcohol level of 240 mg/100 ml or more; F41.9 Anxiety disorder, unspecified
CPT/HCPCS: 36415; 80053; 80320; 83690; 85025; 96361; 96374; 96375; 99284; J2060; J2560

== ENCOUNTER → 2024-04-08 12:17 | Outpatient (CLI) | payer OTHER, MEDICAID, SELFPAY ==
[2023-05-15 02:07] VITALS: BMI 30.8
--- NOTE | 2024-04-08 12:18 | DI.MRI.S_ITS ---
PROCEDURE: MR KNEE RT WO CON INDICATIONS: MENISCAL INJURY, RT KNEE PAIN TECHNIQUE: Noncontrast sagittal PD fast spin echo and T2 fast spin echo with fat saturation, sagittal 3-D FLASH with fat saturation; coronal T1 spin echo and PD fast spin echo with fat saturation, and axial PD fast spin echo with fat saturation through the knee. COMPARISON: [facility], CR, XR KNEE 3 VIEWS RIGHT, 10/02/2023, 10:53. FINDINGS: Image quality: Excellent. Menisci: Oblique tear involving posterior horn of medial meniscus with extension to medial 1/3 of the inferior articulating surface. The lateral meniscus is intact. The meniscal root ligaments appear intact. Cruciate ligaments: The anterior cruciate ligament is thickened. The posterior cruciate ligament is intact. Medial structures: The medial collateral ligament appears mildly thickened. Visualized portions of the pes anserinus tendons appear normal. No abnormal bursal fluid. Lateral structures: The lateral collateral ligament, long and short heads of the biceps femoris tendon appear intact. The popliteus tendon appears normal. Iliotibial band appears normal. Anterior structures: The quadriceps and patellar tendons appear intact. Patellar alignment is normal. No femoral trochlear dysplasia or ventral trochlear prominence. No edema in the infrapatellar fat pad. Bones and cartilage: Marrow edema involving medial periphery of medial tibial plateau is seen without discrete fracture line.. The cartilage of the medial and lateral femorotibial compartments, as well as the patellofemoral compartment, appears normal in thickness. Joint space: There is small knee joint fluid. No Mcclendon's cyst. Normal appearing synovial plicae are incidentally noted. IMPRESSION: 1. Oblique tear involving posterior horn of medial meniscus extending to inferior articulating surface. The lateral meniscus is intact. 2. Low-grade ACL sprain. No ACL rupture. The PCL is intact. 3. Low-grade MCL sprain. 4. Bony contusion involving medial periphery of medial tibial plateau. No fracture or dislocation. Articulating cartilage is normal in thickness. Small joint effusion, no loose bodies. Dictated by: Zenon Mora M.D. on 04/08/2024 at 18:12 Approved by: Zenon Mora M.D. on 04/08/2024 at 18:14
== END ==
PROVIDERS: PCP Nurse Practitioner Family; Referring Provider Physician Assistant Surgical; Visit Provider Physician Assistant Surgical
DX: S83.241A Other tear of medial meniscus, current injury, right knee, initial encounter (principal); S83.511A Sprain of anterior cruciate ligament of right knee, initial encounter; S83.411A Sprain of medial collateral ligament of right knee, initial encounter; S80.01XA Contusion of right knee, initial encounter; M23.91 Unspecified internal derangement of right knee
CPT/HCPCS: 73721

== ENCOUNTER 2024-08-20 14:14 | Emergency (ER) | payer OTHER, SELFPAY ==
[2023-05-15 02:07] VITALS: BMI 30.8
[2024-08-20 14:21] VITALS: BP 140/97; PULSE 104; RESP 14; TEMP 36.6; O2SAT 96; BMI 34.4
[2024-08-20 14:44] LABS: Ur Creatinine Normal (Normal); Ur Specific Gravity Normal (Normal); Urine pH Normal (Normal)
[2024-08-20 14:45] LABS: Urine Amphetamines Negative (Negative); Urine Barbiturates Negative (Negative); Urine Benzodiazepines Negative (Negative); Urine Cocaine Negative (Negative); Urine MDMA Negative (Negative); Urine Methadone Negative (Negative); Urine Methamphetamines Negative (Negative); Urine Opiates Negative (Negative); Urine Oxycodone Negative (Negative); Urine Phencyclidine Negative (Negative); Urine THC Negative (Negative); Urine Tricyclic Antidepressant Negative (Negative)
[2024-08-20 14:53] LABS: Add Manual Diff / Slide Review NO; Basophils Absolute Auto 100 /uL (0-100); Basophils Percent Auto 1.3 % (0-2); Eosinophils Absolute Auto 100 /uL (0-450); Eosinophils Percent Auto 0.8 % (2-4); Hematocrit 46.6 % (36-46); Hemoglobin 15.4 g/dL (12.0-16.0); Lymphocytes Absolute Auto 2800 /uL (1100-4500); Mean Corpuscular HGB Conc 33.1 % (30-36); Mean Corpuscular Hemoglobin 27.9 PG (26-34); Mean Corpuscular Volume 84.3 fL (80-100); Monocytes Absolute Auto 400 /uL (0-900); Monocytes Percent Auto 5.2 % (3-14); Neutrophils Absolute Auto 4400 /uL (1500-7000); Neutrophils Percent Auto 56.7 % (50-75); Platelet Count 218 X10^3/uL (150-400); Red Blood Cell Count 5.53 X10^6/uL (4.0-5.2); Red Cell Distribution Width 14.7 % (11.6-14.8); White Blood Cell Count 7.8 X10^3/uL (4.5-11.0)
[2024-08-20 15:07] LABS: Acetaminophen < 10 ug/mL (10-30); Alanine Aminotransferase 59 IU/L (<35); Albumin 4.8 g/dL (3.5-5.0); Albumin Globulin Ratio 1.5 (1.0-2.8); Alkaline Phosphatase 95 U/L (38-126); Aspartate Aminotransferase 80 IU/L (14-36); BUN Creatinine Ratio 30.5 (6-22); Bilirubin Total 1.6 mg/dL (0.2-1.3); Blood Urea Nitrogen 18 mg/dL (7-17); Calcium 8.8 mg/dL (8.4-10.2); Carbon Dioxide 21 mmol/L (22-32); Chloride 102 mmol/L (98-107); Estimated Glomerular Filt Rate > 60 mL/min (>60); Ethanol (ETOH) 205 mg/dL; Globulin 3.2 g/dL (1.7-4.1); Glucose 115 mg/dL (70-100); HEMOLYSIS 18 (0-50); Salicylate < 1.0 mg/dL (<20); Sodium 139 mmol/L (137-145)
[2024-08-20 15:29] LABS: Free T4, Direct Thyroxine 1.11 ng/dL (0.78-2.19)
[2024-08-20] MEDS: ONDANSETRON 4 MG ODT SL (16:56)
--- NOTE | 2024-08-20 17:15 | PC.NURSE ---
Pt not in lobby when LILIA Werner went to re check her vital signs
== END 2024-08-20 17:34 | disposition left against medical advice (07) ==
PROVIDERS: Emergency Provider Emergency Medicine; PCP Nurse Practitioner Family
DX: F41.9 Anxiety disorder, unspecified (principal); R11.2 Nausea with vomiting, unspecified
CPT/HCPCS: 36415; 80053; 80305; 80320; 80329; 81003; 81025; 84439; 84443; 85025; 99283; G0480